=== PATIENT | male | born 1935 | race Caucasian/White ===

== ENCOUNTER 2018-03-12 18:14 | Inpatient (IN) ==
[2018-03-12] MEDS ORDERED: Diphtheria/Tetanus/Pertussis Vaccine Inj 0.5 ML Syringe IM ONE (18:21)
[2018-03-12] MEDS ORDERED: Propofol 1000 mg/100 ml Inj 1,000 MG/100 ML BOTTLE ONE (18:21)
--- NOTE | 2018-03-12 18:30 | XR ---
EXAM DATE: 03/12/2018 6:26 PM EDT AGE/SEX: 89 years / Male INDICATIONS: Trauma alert, fall from ladder. CLINICAL DATA: This is the patient's initial encounter. Patient reports that signs and symptoms have been present for 1 day and indicates a pain score of Nonresponsive. MEDICAL/SURGICAL HISTORY: Non-responsive. Non-responsive. COMPARISON: . FINDINGS: An endotracheal tube has its tip 4 cm above the yaritza. Median sternotomy wires are noted status post cardiac surgery. The heart is minimally prominent. The pulmonary vascular pattern is normal. The lindsay gs are clear. CONCLUSION: 1. No acute intrathoracic trauma. 2. Endotracheal tube in good position 4 cm above the yaritza. Electronically signed by: Bernabe Chan MD 03/12/2018 6:29 PM EDT
[2018-03-12] MEDS ORDERED: fentaNYL 10 mcg/mL Premix Drip 2,500 MCG/250 ML BAG IV.SIG PRN (18:31)
[2018-03-12] MEDS ORDERED: Naloxone Inj 0.4 MG/ML Vial IV.PUSH PRN (18:31)
[2018-03-12] MEDS ORDERED: Bisacodyl 10 MG Supp RECTAL PRN (18:31)
[2018-03-12 18:46] LABS: Baso % (Auto) 0.4 % (0.0-2.0); Hematocrit 45.7 % (39.0-51.0); Hemoglobin 15.7 gm/dL (13.0-17.0); Lymph # (Auto) 0.3 th/mm3 (1.0-4.8); Lymph % (Auto) 2.3 % (9.0-44.0); Mean Corpuscular HGB Conc 34.4 % (32.0-36.0); Mean Corpuscular Hemoglobin 31.5 pg (27.0-34.0); Mean Corpuscular Volume 91.4 fL (80.0-100.0); Mean Platelet Volume 9.3 fL (7.0-11.0); Mono # (Auto) 1.2 th/mm3 (0.0-0.9); Neut # (Auto) 11.8 th/mm3 (1.8-7.7); Neut % (Auto) 88.3 % (16.0-70.0); Platelet Count 146 th/mm3 (150-450); Red Cell Distribution Width 13.9 % (11.6-17.2); White Blood Count 13.4 th/mm3 (4.0-11.0)
--- NOTE | 2018-03-12 18:56 | CT ---
EXAM DATE: 03/12/2018 6:49 PM EDT AGE/SEX: 89 years / Male INDICATIONS: Trauma fell off ladder CLINICAL DATA: This is the patient's initial encounter. Patient reports that signs and symptoms have been present for 1 day and indicates a pain score of Nonresponsive. MEDICAL/SURGICAL HISTORY: Non-responsive. Non-responsive. RADIATION DOSE: 66.34 CTDI (mGy) COMPARISON: No prior exams available for comparison. TECHNIQUE: CT of the head without contrast. Using automated exposure control and adjustment of the mA and/or kV according to patient size, radiation dose was kept as low as reasonably achievable to ob tain optimal diagnostic quality images. DICOM format image data is available electronically for revi ew and comparison. FINDINGS: There is a small volume of blood in the posterior horns of the lateral ventricles. Minimal occasional subarachnoid blood present including in the posterior sylvian fissures bilaterally. A small hemorrha ge is present in the quadrigeminal plate region asymmetric to the right there is no evidence of drain able hemorrhagic collection. No evidence of significant brain shift. No evidence of brain mass and no thing to suggest acute infarction. There is layering fluid in the left maxillary sinus, in the nasopharynx and in posterior left-sided e thmoid air cells. No evidence of displaced skull fracture. 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 CONCLUSION: Areas of intracranial hemorrhage and parenchymal contusion as described above. No acute surgical find ings. . Electronically signed by: Antoni Blood MD 03/12/2018 6:55 PM EDT
[2018-03-12 19:00] LABS: Activated Partial Thrombo Time 23.9 sec (24.3-30.1); INR 1.1 Ratio; Prothrombin Time 10.9 sec (9.8-11.6)
[2018-03-12] MEDS ORDERED: Pantoprazole Inj 40 MG Vial IV.PUSH SCH (19:00)
[2018-03-12] MEDS ORDERED: Sod Chloride 0.9% Inj 1,000 ML IV.CONT SCH (19:00)
--- NOTE | 2018-03-12 19:01 | CT ---
EXAM DATE: 03/12/2018 6:54 PM EDT AGE/SEX: 89 years / Male INDICATIONS: Trauma fell off ladder CLINICAL DATA: This is the patient's initial encounter. Patient reports that signs and symptoms have been present for 1 day and indicates a pain score of Nonresponsive. MEDICAL/SURGICAL HISTORY: Non-responsive. Non-responsive. ORAL CONTRAST: No oral contrast ingested. RADIATION DOSE: 5.13 CTDI (mGy) ; Combined studies COMPARISON: No prior exams available for comparison. TECHNIQUE: Multiple contiguous axial images were obtained through the abdomen and pelvis following b olus infusion of 96 ml Omnipaque 350 (iohexol) nonionic water-soluble contrast as a cumulative dose for multiple exams. No oral contrast ingested. Using automated exposure control and adjustment of t he mA and/or kV according to patient size, radiation dose was kept as low as reasonably achievable to obtain optimal diagnostic quality images. DICOM format image data is available electronically for r eview and comparison. FINDINGS: Lower Lungs: The visualized lower lungs are clear. Liver: The liver has a homogeneous density without space-occupying lesion. There is no dilation of th e biliary tree. Spleen: Homogeneous density without enlargement. Pancreas: Unremarkable without mass or calcification. Kidneys: Mild bilateral hydronephrosis in addition to what appears to be parapelvic renal cysts. The urinary bladder is moderately dilated. No evidence of renal parenchymal contusion. Adrenal Glands: Unremarkable. Aorta: The aorta and proximal iliac vessels are grossly unremarkable without aneurysmal dilation. Bowel/Mesentery: Stool present throughout the colon. Moderate gaseous distention of small bowel loop s and of the stomach. No nasogastric tube noted. Abdominal Wall: Intact. Retroperitoneum: No evidence of adenopathy in the retrocrural, para-aortic, or deep pelvic regions. Bladder: Mildly dilated Reproductive Organs: No abnormal masses or calcifications seen. Inguinal: The inguinal region is unremarkable without evidence of adenopathy. Bony Structures: Unremarkable. CONCLUSION: 1. No acute injury in the abdomen or pelvis. 2. Mildly dilated urinary bladder with mild bilateral hydronephrosis and/or parapelvic renal cysts. This could be more definitively evaluated with delayed scanning following placement of a Junior cathet er 3. Moderate gaseous distention of the stomach and small bowel. Electronically signed by: Antoni Blood MD 03/12/2018 7:00 PM EDT
--- NOTE | 2018-03-12 19:02 | XR ---
EXAM DATE: 03/12/2018 6:28 PM EDT AGE/SEX: 89 years / Male INDICATIONS: Trauma alert, fall from ladder. CLINICAL DATA: This is the patient's initial encounter. Patient reports that signs and symptoms have been present for 1 day and indicates a pain score of Nonresponsive. MEDICAL/SURGICAL HISTORY: Non-responsive. Non-responsive. COMPARISON: No prior exams available for comparison. FINDINGS: Frontal pelvis is performed with patient on a backboard. The hips are grossly symmetric with moderate degenerative arthritic change. No definite fracture or dislocation. No displaced pelvic fractures ap preciated. CONCLUSION: Satisfactory trauma pelvis appearance Electronically signed by: Antoni Blood MD 03/12/2018 7:01 PM EDT
--- NOTE | 2018-03-12 19:02 | CT ---
EXAM DATE: 03/12/2018 6:57 PM EDT AGE/SEX: 89 years / Male INDICATIONS: Trauma fell off ladder CLINICAL DATA: This is the patient's initial encounter. Patient reports that signs and symptoms have been present for 1 day and indicates a pain score of Nonresponsive. MEDICAL/SURGICAL HISTORY: Non-responsive. Non-responsive. RADIATION DOSE: 5.13 CTDI (mGy) ; Combined studies COMPARISON: . TECHNIQUE: Multiple contiguous axial images were obtained through the chest during bolus infusion of 96 ml Omnipaque 350 (iohexol) nonionic water-soluble contrast as a cumulative dose for multiple exa ms. Images were obtained in suspended respiration using multiple row detector helical technique. U sing automated exposure control and adjustment of the mA and/or kV according to patient size, radiati on dose was kept as low as reasonably achievable to obtain optimal diagnostic quality images. DICOM format image data is available electronically for review and comparison. FINDINGS: Lungs: The lungs are symmetrically aerated. No infiltrates or nodular densities are seen. Posterior bibasilar atelectasis is noted. Mediastinum: There is good visualization of the great vessels of the middle mediastinum. No evidenc e of mediastinal or hilar adenopathy/mass. Coronary artery calcifications are noted. The tracheal tub e in good position well above the yaritza. Pleurae: No evidence of focal thickening or pleural effusion. Axillae: Unremarkable. Bony Structures: Unremarkable. Miscellaneous: The examination was extended to include the upper abdomen, and both adrenal glands ar e normal in size and configuration. CONCLUSION: 1. Posterior bibasilar atelectasis. 2. Coronary artery calcium patient. 3. No acute intrathoracic trauma. Electronically signed by: Bernabe Chan MD 03/12/2018 7:01 PM EDT
[2018-03-12] MEDS: Sod Chloride 0.9% Inj 1,000 ML IV.CONT SCH (19:04)
[2018-03-12 19:08] LABS: Anion Gap 12 meq/L (5-15); Blood Urea Nitrogen 26 mg/dL (7-18); Calcium 8.5 mg/dL (8.5-10.1); Carbon Dioxide 20.9 meq/L (21.0-32.0); Chloride 108 meq/L (98-107); Glomerular Filtration Rate 59 mL/min (>89); Glucose,Random 132 mg/dL (74-106); Potassium 5.7 meq/L (3.5-5.1); Sodium 141 meq/L (136-145)
--- NOTE | 2018-03-12 19:10 | CT ---
EXAM DATE: 03/12/2018 7:02 PM EDT AGE/SEX: 89 years / Male INDICATIONS: Trauma fell off ladder CLINICAL DATA: This is the patient's initial encounter. Patient reports that signs and symptoms have been present for 1 day and indicates a pain score of Nonresponsive. MEDICAL/SURGICAL HISTORY: Non-responsive. Non-responsive. RADIATION DOSE: 20.44 CTDI (mGy) COMPARISON: No prior exams available for comparison. TECHNIQUE: Contiguous axial images were obtained using helical multirow detector technique. The vol umetric data was post-processed with multiplanar reconstruction in oblique axial, sagittal, and coron al planes. Using automated exposure control and adjustment of the mA and/or kV according to patient s ize, radiation dose was kept as low as reasonably achievable to obtain optimal diagnostic quality magnus ges. DICOM format image data is available electronically for review and comparison. FINDINGS: Cervical spine alignment is satisfactory. There is no evidence of cervical spine fracture. There is m oderate degenerative change present throughout with disc space narrowing and endplate osteophyte form ation most conspicuously at C5-6 and C6-7. There appears to be moderate canal stenosis, more severe a t C6-7 than at C5-6 and bilateral foraminal stenosis at these levels, most significantly at the left C VII nerve root level. Less severe anatomic compromise is present at other levels. There is no evide nce of paraspinal hematoma CONCLUSION: 1. No acute bony injury in the cervical spine. 2. Significant disc disease and degenerative spondylosis with fairly significant suspected canal melanie nosis in the lower cervical spine as described. Electronically signed by: Antoni Blood MD 03/12/2018 7:08 PM EDT
--- NOTE | 2018-03-12 19:11 | ED ---
HPI General Chief Complaint: Trauma Alert Stated Complaint: Trauma Alert Time Seen by Provider: 03/12/18 18:43 Source: patient Mode of arrival: ambulatory Limitations: no limitations History of Present Illness HPI narrative: This is an older adult male, found at the bottom of the ladder, presumed to have fallen sometime in the last 24 hours, brought in as a trauma alert. Unknown medical history. GCS 6 or so on scene. Intubated on scene by EMS. Related Data Allergies Allergy/AdvReac Type Severity Reaction Status Date / Time No Allergy Information Allergy Unverified 03/12/18 18:17 Available Review of Systems ROS Unobtainable ROS Unobtainable: unobtainable due to endotracheal tube PMFSH Medical History Medical History Medical history unknown (Acute) Surgical history unknown (Acute) Social History Social History Recent Travel in [facility] within the Last 8 Weeks: No Recent Out of Country Travel within the Last 8 Weeks: No Exam Narrative Exam Narrative: GENERAL: Adult male, full spinal mobilization, obtunded. Some purposeful movement to the tube, but minimal. Blinking. SKIN: Focused skin assessment warm/dry. HEAD: Normocephalic, post contusion to the soft tissues of the posterior occiput. EYES: Pupils equal and round. No scleral icterus. No injection or drainage. ENT: No nasal bleeding or discharge. Mucous membranes pink and moist. NECK: Trachea midline. No JVD. CARDIOVASCULAR: Regular rate and rhythm. No murmur appreciated. RESPIRATORY: No accessory muscle use. Clear to auscultation. Breath sounds equal bilaterally. GASTROINTESTINAL: Abdomen soft, non-tender, nondistended. Hepatic and splenic margins not palpable. MUSCULOSKELETAL: No obvious deformities. No clubbing. No cyanosis. No edema. NEUROLOGICAL: Obtunded. A little bit of occasional purposeful movement the hands although it is difficult to elicit any movement with noxious stimulus. I do not really see him move his feet at all. Pupils are about 1-2 mm. Some spontaneous blinking. Course Initial Documented Vital Signs Pulse Oximetry 97 03/12/18 18:14 Last Documented Vital Signs Pulse Oximetry 97 03/12/18 18:14 Medical Decision Making MDM Narrative Medical decision making narrative: Adult male, presumed trauma fall from ladder , unknown timeframe, obtunded, intubated on scene. Contusion posterior aspect. A little bit of skin breakdown on the back. No other definite injuries. Admitted to trauma ICU Medical Screen Exam Complete: Yes Emergency Medical Condition: Yes Lab Data Lab results reviewed: Yes I reviewed the patient's lab results. Result diagrams: 03/12/18 18:16 03/12/18 18:16 Lab Results 03/12/18 03/12/18 03/12/18 Range/Units 18:16 18:16 18:16 WBC 13.4 H (4.0-11.0) th/mm3 RBC 5.00 (4.50-5.90) mil/mm3 Hgb 15.7 (13.0-17.0) gm/dL POC Hgb (Calc) 15.3 (13.0-17.0) g/dL Hct 45.7 (39.0-51.0) % POC Hct 45.0 (39-51.0) % MCV 91.4 (80.0-100.0) fL MCH 31.5 (27.0-34.0) pg MCHC 34.4 (32.0-36.0) % RDW 13.9 (11.6-17.2) % Plt Count 146 L (150-450) th/mm3 MPV 9.3 (7.0-11.0) fL Neut % (Auto) 88.3 H (16.0-70.0) % Lymph % (Auto) 2.3 L (9.0-44.0) % [place] % (Auto) 9.0 H (0.0-8.0) % Eos % (Auto) 0.0 (0.0-4.0) % Baso % (Auto) 0.4 (0.0-2.0) % Neut # (Auto) 11.8 H (1.8-7.7) th/mm3 Lymph # (Auto) 0.3 L (1.0-4.8) th/mm3 [place] # (Auto) 1.2 H (0.0-0.9) th/mm3 Eos # (Auto) 0.0 (0.0-0.4) th/mm3 Baso # (Auto) 0.0 (0.0-0.2) th/mm3 WBC Differential . Differential Comment Auto diff final PT 10.9 (9.8-11.6) sec INR 1.1 Ratio APTT 23.9 L (24.3-30.1) sec POC Sodium 141 (137-144) mmol/L Sodium (136-145) meq/L POC Potassium 5.9 H (3.6-5.0) mmol/L Potassium (3.5-5.1) meq/L POC Chloride 109 (102-111) mmol/L Chloride (98-107) meq/L Carbon Dioxide (21.0-32.0) meq/L Anion Gap (5-15) meq/L POC BUN 41 H (5-21) mg/dL BUN (7-18) mg/dL Creatinine (0.60-1.30) mg/dL POC Creatinine 0.9 (0.6-1.3) mg/dL Estimated GFR (>89) mL/min POC Glucose 151 H (68-110) mg/dL Random Glucose (74-106) mg/dL Calcium (8.5-10.1) mg/dL Serum Alcohol (0-5) mg/dL 03/12/18 Range/Units 18:16 WBC (4.0-11.0) th/mm3 RBC (4.50-5.90) mil/mm3 Hgb (13.0-17.0) gm/dL POC Hgb (Calc) (13.0-17.0) g/dL Hct (39.0-51.0) % POC Hct (39-51.0) % MCV (80.0-100.0) fL MCH (27.0-34.0) pg MCHC (32.0-36.0) % RDW (11.6-17.2) % Plt Count (150-450) th/mm3 MPV (7.0-11.0) fL Neut % (Auto) (16.0-70.0) % Lymph % (Auto) (9.0-44.0) % [place] % (Auto) (0.0-8.0) % Eos % (Auto) (0.0-4.0) % Baso % (Auto) (0.0-2.0) % Neut # (Auto) (1.8-7.7) th/mm3 Lymph # (Auto) (1.0-4.8) th/mm3 [place] # (Auto) (0.0-0.9) th/mm3 Eos # (Auto) (0.0-0.4) th/mm3 Baso # (Auto) (0.0-0.2) th/mm3 WBC Differential Differential Comment PT (9.8-11.6) sec INR Ratio APTT (24.3-30.1) sec POC Sodium (137-144) mmol/L Sodium 141 (136-145) meq/L POC Potassium (3.6-5.0) mmol/L Potassium 5.7 H (3.5-5.1) meq/L POC Chloride (102-111) mmol/L Chloride 108 H (98-107) meq/L Carbon Dioxide 20.9 L (21.0-32.0) meq/L Anion Gap 12 (5-15) meq/L POC BUN (5-21) mg/dL BUN 26 H (7-18) mg/dL Creatinine 1.08 (0.60-1.30) mg/dL POC Creatinine (0.6-1.3) mg/dL Estimated GFR 59 L (>89) mL/min POC Glucose (68-110) mg/dL Random Glucose 132 H (74-106) mg/dL Calcium 8.5 (8.5-10.1) mg/dL Serum Alcohol Less than 3 (0-5) mg/dL Imaging Data Radiologist's impression: Chest X-Ray 03/12/18 18:18 CONCLUSION: 1. No acute intrathoracic trauma. 2. Endotracheal tube in good position 4 cm above the yaritza. Pelvis X-Ray 03/12/18 18:18 CONCLUSION: Satisfactory trauma pelvis appearance Abdomen/Pelvis CT 03/12/18 18:23 CONCLUSION: 1. No acute injury in the abdomen or pelvis. 2. Mildly dilated urinary bladder with mild bilateral hydronephrosis and/or parapelvic renal cysts. This could be more definitively evaluated with delayed scanning following placement of a Junior catheter 3. Moderate gaseous distention of the stomach and small bowel. Chest CT 03/12/18 18:23 CONCLUSION: 1. Posterior bibasilar atelectasis. 2. Coronary artery calcium patient. 3. No acute intrathoracic trauma. Cervical Spine CT 03/12/18 18:24 CONCLUSION: 1. No acute bony injury in the cervical spine. 2. Significant disc disease and degenerative spondylosis with fairly significant suspected canal stenosis in the lower cervical spine as described. Head CT 03/12/18 18:24 CONCLUSION: Areas of intracranial hemorrhage and parenchymal contusion as described above. No acute surgical findings. . Discharge Plan Discharge Disposition Patient Disposition: 30 Still Patient Physicians Team ED Provider: Shree Ross Primary Care Provider: UNKNOWN, Attending Provider: Vaibhav Tenorio Other Providers: Ry Marrero ED Status: Admitted Patient
[2018-03-12 19:32] LABS: Bilirubin,Urine Negative (Negative); Clarity,Urine Clear (Clear); Color,Urine Yellow (Yellw/Straw); Glucose,Urine (UA) Negative (Negative); Leukocyte Esterase,Urine Negative (Negative); Mucus,Urine Few /lpf (Occasional); Nitrite,Urine Negative (Negative); Specific Gravity,Urine 1.026 (1.002-1.035)
[2018-03-12 19:40] LABS: ABG Base Excess -1.4 mmol/L (-2-2); ABG PCO2 38 mmHg (38-42); ABG PO2 566 mmHg (61-120)
--- NOTE | 2018-03-12 19:50 | P.CONNS ---
History of Present Illness Service: NEUROSURGERY Consult date: 03/12/18 Requesting Physician: Jose Lopez Reason for Consult: Trauma alert Primary Care Provider: UNKNOWN Chief Complaint: Severe trauma History of Present Illness: This is an elderly man who was found under a ladder, and presumably fell off the ladder. Positive loss oc counsiousness. Mp seizure activity reported. No tongue bitting. no incontinence of stool or urine. He was transferred to our institution as priority 1 trauma alert and on arrival patient is Hugo coma scale of about 5 Upon arrival to the trauma bay he was was intubated and ventilated Trauma workup revealed multiple injuries, including intracranial hemorrhage with small area of contusion on the right side, and bleeding in the quadrigeminal plate. No other injuries are noted. The patient has bilateral severe hydronephrosis and parapelvic renal cysts that can be evaluated at a different time. Mininmal reaction to pain. Neurosurgical consultation was requested Review of Systems unobtainable due to endotracheal tube, unobtainable due to mental condition PMFSH - History History Provided By: Health Screener / EMT - Medical History Medical History: Medical History (Last Reviewed 03/13/18 @ 17:01 by Ry Marrero MD) Medical history unknown Surgical history unknown - Tobacco History Smoking Status: Unknown if ever smoked - Alcohol History How Often Do You Have a Drink Containing Alcohol: Unable to Obtain - Substance Use History Substance History: Unable to Obtain - Travel History Recent Travel in the USA Within the Last 8 Weeks: No Recent Travel Out of the Country Within the Last 8 Weeks: No - Immunization History Tetanus Immunization: Unable to Assess Hx Influenza Vaccine This Season: Unable to Assess Medications and Allergies Active Medications: Active Medications Al Hydroxide/Mg Hydroxide (Milk Of Leland Liq) 30 ml PO Q12H PRN PRN Reason: Mild Constipation Bisacodyl (Dulcolax Supp) 10 mg RECTAL DAILY PRN PRN Reason: SEVERE CONSITIPATION Chlorhexidine Gluconate (Chlorhexidine 2% Cloth) 3 pack TOPICAL DAILY@0400 [facility] Stop: 03/18/18 03:59 Chlorhexidine Gluconate (Chlorhexidine 2% Cloth) 3 pack TOPICAL DAILY@0400 PRN PRN Reason: Extra cloth needed Stop: 03/18/18 03:59 Famotidine (Pepcid) 20 mg PO BID [facility] Famotidine (Pepcid Pf Inj) 20 mg IV.PUSH Q12HR [facility] Fentanyl (Fentanyl 10 Mcg/Ml Premix Drip) 2,500 mcg in 250 mls @ 5 mls/hr IV.SIG TITRATE PRN; Protocol PRN Reason: Per Protocol Sodium Chloride (Ns Inj) 1,000 mls @ 150 mls/hr IV.CONT .Q6H40M [facility] Last Admin: 03/12/18 19:04 Dose: Not Given Propofol (Diprivan 1000 Mg/100 Ml Inj) 1,000 mg in 100 mls @ 2.25 mls/hr IV.CONT TITRATE PRN; Protocol PRN Reason: Per Protocol Sodium Chloride (Ns Inj) 1,000 mls @ 1,000 mls/hr IV.CONT .Q1H [facility] Stop: 03/12/18 19:59 Last Admin: 03/12/18 19:38 Dose: 1,000 mls/hr Levetiracetam 500 mg/ Sodium (Chloride) 105 mls @ 400 mls/hr IV.SIG Q12H [facility] Last Admin: 03/12/18 19:46 Dose: 400 mls/hr Lactulose (Lactulose Liq) 30 ml PO DAILY PRN PRN Reason: SEVERE CONSITIPATION Naloxone HCl (Narcan Inj) 0.4 mg IV.PUSH Q3M PRN PRN Reason: RESPIRATORY RATE LESS THAN 10 Ondansetron HCl (Zofran Inj) 4 mg IV.PUSH Q6H PRN PRN Reason: NAUSEA OR VOMITING Pantoprazole Sodium (Protonix Inj) 40 mg IV.PUSH DAILY [facility] Last Admin: 03/12/18 19:39 Dose: 40 mg Sennosides (Senokot) 17.2 mg PO Q12H PRN PRN Reason: Moderate Constipation Sodium Chloride (Ns Flush) 2 ml IV.FLUSH BID [facility] Sodium Chloride (Ns Flush) 2 ml IV.FLUSH PRN PRN PRN Reason: FLUSH AFTER USING IV ACCESS Allergies Allergy/AdvReac Type Severity Reaction Status Date / Time No Allergy Information Allergy Unverified 03/12/18 18:17 Available Home Medications Medication Instructions Recorded Confirmed Type Unable to Obtain Home Meds 03/12/18 03/12/18 History Exam Vital signs: Vital Signs 03/12/18 18:14 03/12/18 19:07 03/12/18 19:13 Pulse Rate Respiratory Rate 16 Blood Pressure Pulse Oximetry 97 100 100 03/12/18 19:15 03/12/18 19:20 03/12/18 19:27 Pulse Rate 65 Respiratory Rate 16 Blood Pressure 155/78 H Pulse Oximetry 100 100 100 Intake & Output 03/12/18 03/12/18 03/13/18 06:59 18:59 06:59 Weight 75 kg Narrative: The patient is intubated and sedated. Minimal response to painful stimuli with all 4 extremities. Cranial Nerves: Pupils equal, 3 mm round, reactive to light. Eyes appear conjugated. There was no nystagmus, no papilledema. Face musculature appeared symmetrical at rest. Face sensation, olfaction, and hearing cannot be adequately assessed due to the patient's neurological condition. The patient has a corneal reflex. The patient has a gag reflex. The sternocleidomastoid and trapezius were symmetrical. Cervical Spine: The patient's neck is soft, supple, without nuchal rigidity. Motor: His muscle tone and bulk are normal. He moves minimally all 4 extremities symmetrically. Reflexes: Deep tendon reflexes are 2+ and symmetrical in the biceps, triceps, and brachioradialis, bilaterally, in the upper extremities. In the lower extremities, the patellar and ankles are 2+, bilaterally. There is a bilateral plantar flexion response. There is no clonus or other abnormal reflexes noted. Sensory: On examination there there is response to painful stimuli, withdrawing with both upper and lower extremities. Cerebellar: Examination cannot be adequately assessed due to the patient's neurological condition. Lungs: clear Heart: Regular rhythm and rate Skin: warm and dry Results - Laboratory Findings CBC and BMP: 03/13/18 03:17 03/13/18 03:17 Abnormal lab findings: Abnormal Labs 03/12/18 03/12/18 03/12/18 18:16 18:16 18:16 WBC 13.4 H Plt Count 146 L Neut % (Auto) 88.3 H Lymph % (Auto) 2.3 L Coffey % (Auto) 9.0 H Neut # (Auto) 11.8 H Lymph # (Auto) 0.3 L Coffey # (Auto) 1.2 H APTT 23.9 L ABG pO2 ABG O2 Content POC Potassium 5.9 H Potassium Chloride Carbon Dioxide POC BUN 41 H BUN Estimated GFR POC Glucose 151 H Random Glucose Urine Protein Urine Ketones Urine Occult Blood Urine Urobilinogen Urine RBC Urine Mucus 03/12/18 03/12/18 03/12/18 18:16 19:20 19:20 WBC Plt Count Neut % (Auto) Lymph % (Auto) Coffey % (Auto) Neut # (Auto) Lymph # (Auto) Coffey # (Auto) APTT ABG pO2 566 H ABG O2 Content 20.6 H POC Potassium Potassium 5.7 H Chloride 108 H Carbon Dioxide 20.9 L POC BUN BUN 26 H Estimated GFR 59 L POC Glucose Random Glucose 132 H Urine Protein 30 H Urine Ketones Trace H Urine Occult Blood Moderate H Urine Urobilinogen 2.0 H Urine RBC 5 H Urine Mucus Few H Assessment and Plan - Plan I reviewed his radiological studies Chest X-Ray 03/12/18 18:18 CONCLUSION: 1. No acute intrathoracic trauma. 2. Endotracheal tube in good position 4 cm above the yaritza. Pelvis X-Ray 03/12/18 18:18 CONCLUSION: Satisfactory trauma pelvis appearance Abdomen/Pelvis CT 03/12/18 18:23 CONCLUSION: 1. No acute injury in the abdomen or pelvis. 2. Mildly dilated urinary bladder with mild bilateral hydronephrosis and/or parapelvic renal cysts. This could be more definitively evaluated with delayed scanning following placement of a Junior catheter 3. Moderate gaseous distention of the stomach and small bowel. Chest CT 03/12/18 18:23 CONCLUSION: 1. Posterior bibasilar atelectasis. 2. Coronary artery calcium patient. 3. No acute intrathoracic trauma. Cervical Spine CT 03/12/18 18:24 CONCLUSION: 1. No acute bony injury in the cervical spine. 2. Significant disc disease and degenerative spondylosis with fairly significant suspected canal stenosis in the lower cervical spine as described. Head CT 03/12/18 18:24 CONCLUSION: Areas of intracranial hemorrhage and parenchymal contusion as described above. No acute surgical findings. . Neuro: neuro checks in a serial fashion. Follow CT in AM he seems to be moving. If he does not wake up will place ICP monitor Pulmonary: Respiratory failure. On full mechanical ventilation. aggressive pulmonary toilette, nasotracheal suction, and breathing treatments with nebulizers. Eval by PT and OT Renal: monitor closely urine output, BUN and creatinine Endocrine: Monitor serial Acu checks and SSI as needed in detail monitor for signs of infection Protonix for stress ulcer prophylaxis Abhijeet hose and SCD's for DVT prophylaxis Caprini VTE Risk Assessment Caprini Risk Assessment Model: Point Value = 1 Point Value = 2 Point Value = 3 Point Value = 5 Age 41-60 Minor surgery BMI > 25 kg/m2 Swollen legs Varicose veins or History of unexplained or recurrent spontaneous Oral contraceptives or hormone replacement Sepsis (< 1 month) Serious lung disease, including pneumonia (< 1 month) Abnormal pulmonary function Acute myocardial infarction Congestive heart failure (< 1 month) History of inflammatory bowel disease Medical patient at bed rest Age 61-74 Arthroscopic surgery Major open surgery (> 45 min) Laparoscopic surgery (> 45 min) Malignancy Confined to bed (> 72 hours) Immobilizing plaster cast Central venous access Age >= 75 History of VTE Family history of VTE Factor V Leiden Prothrombin [id number] Lupus anticoagulant Anticardiolipin antibodies Elevated serum homocysteine Heparin-induced thrombocytopenia Other congenital or acquired thrombophilia Stroke (< 1 month) Elective arthroplasty Hip, pelvis, or leg fracture Acute spinal cord injury (< 1 month) Prophylaxis Regimen: Total Risk Factor Score Risk Level Prophylaxis Regimen 0-1 Low Early ambulation 2 Moderate Order ONE of the following: *Sequential Compression Device (SCD) *Heparin 5000 units SQ BID 3-4 Higher Order ONE of the following medications: *Heparin 5000 units SQ TID *Enoxaparin/Lovenox 40 mg SQ daily (WT < 150 kg, CrCl > 30 mL/min) *Enoxaparin/Lovenox 30 mg SQ daily (WT < 150 kg, CrCl > 10-29 mL/min) *Enoxaparin/Lovenox 30 mg SQ BID (WT < 150 kg, CrCl > 30 mL/min) AND/OR *Sequential Compression Device (SCD) 5 or more Highest Order ONE of the following medications: *Heparin 5000 units SQ TID (Preferred with Epidurals) *Enoxaparin/Lovenox 40 mg SQ daily (WT < 150 kg, CrCl > 30 mL/min) *Enoxaparin/Lovenox 30 mg SQ daily (WT < 150 kg, CrCl > 10-29 mL/min) *Enoxaparin/Lovenox 30 mg SQ BID (WT < 150 kg, CrCl > 30 mL/min) AND *Sequential Compression Device (SCD) Further recommendations will be provided depending on the patient's clinical evaluation and follow up studies.
--- NOTE | 2018-03-12 20:02 | MH ---
cc: Vaibhav Tenorio MD DATE OF ADMISSION: 03/12/2018 HISTORY OF PRESENT ILLNESS: This is a [id number] male who was found at the bottom of the ladder. Presumably, he fell in the last 24 hours. Is a trauma alert. On arrival, the patient's Hugo coma scale was 6 and he was intubated by EMS and sedated. PAST MEDICAL AND SURGICAL HISTORY: Not obtainable. MEDICATIONS: Unobtainable. ALLERGIES: Unobtainable PHYSICAL EXAMINATION: GENERAL: Reveals [id number] male. HEENT: Normocephalic trauma to the head consisting of a posterior left contusion. Pupils equal, poorly reactive, about 3 mm. Extraocular muscles cannot be tested. No hemotympanum. No hawkins sign, no raccoon eyes. NECK: No signs of trauma to the neck. C-collar is repositioned. HEART: Regular rhythm. The patient is hemodynamically stable. Actual blood pressure is about 180. RESPIRATORY: Bilateral breath sounds, decreased lungs sullivan consistent probably with some degree of COPD. ABDOMEN: Soft. No rebound, no guarding, no masses. EXTREMITIES: The patient has palpable femoral, popliteal pulses dopplerable, dorsalis pedis and posterior tibial pulses. No signs of vascular deficit. NEUROLOGIC: Protivin coma scale on the scene was about 6. On arrival, the patient is intubated, ventilated. It is about 3 and then improved to about 8 or 9. The patient is fluttering slightly his eyes and moving his extremities and intermittently follows commands. The patient is not now intubated and until further notice will remain so. IMPRESSION: The patient underwent laboratory and diagnostic workup. After resuscitation, was found to have intracranial hemorrhage with small area of contusion on the right and then a small area of concentrated bleeding in the quadrigeminal plate. No other injuries are noted. The patient has bilateral severe hydronephrosis and parapelvic renal cysts that can be evaluated at a different time. At this point, I am not sure if the patient fell off the ladder and sustained injuries or perhaps he had a stroke in the quadrigeminal area, which is hemorrhagic and then fell off the ladder. Either way, patient is taken care of in the ICU. Appropriate services are consulted. The patient has significant degree of atrophy, will not need intracranial pressure monitor. Neurosurgeon has been spoken to by me and Dr. Marrero. MD CARLEE Martin/zay , 07:31 PM , 07:38 PM GERALDINE
[2018-03-12] MEDS ORDERED: Morphine Sulfate Inj 2 MG/ML Vial ONE (20:26)
[2018-03-12] MEDS: Famotidine PF Inj 20 MG/2 ML Vial IV.PUSH SCH (20:54)
[2018-03-12 20:56] LABS: ABG Base Excess -1.6 mmol/L (-2-2); ABG PCO2 38 mmHg (38-42); ABG PO2 188 mmHg (61-120)
[2018-03-12] MEDS ORDERED: Famotidine 20 MG Tablet PO SCH (21:00)
[2018-03-12] MEDS: Propofol 1000 mg/100 ml Inj 1,000 MG/100 ML BOTTLE IV.CONT PRN (21:07)
[2018-03-12 21:56] LABS: Hematocrit 41.1 % (39.0-51.0); Hemoglobin 13.9 gm/dL (13.0-17.0)
[2018-03-13 01:42] LABS: Troponin I 0.05 ng/mL (0.02-0.05)
[2018-03-13] MEDS: Sod Chloride 0.9% Inj 1,000 ML IV.CONT SCH ×3 (03:00→16:17)
[2018-03-13] MEDS: Chlorhexidine Gluconate 2% 1 Pack (2 Cloths) TOPICAL SCH (03:00)
[2018-03-13 03:38] LABS: Baso % (Auto) 0.3 % (0.0-2.0); Eos % (Auto) 0.2 % (0.0-4.0); Hematocrit 41.7 % (39.0-51.0); Hemoglobin 13.9 gm/dL (13.0-17.0); Lymph # (Auto) 0.9 th/mm3 (1.0-4.8); Lymph % (Auto) 10.5 % (9.0-44.0); Mean Corpuscular HGB Conc 33.2 % (32.0-36.0); Mean Corpuscular Hemoglobin 31.3 pg (27.0-34.0); Mean Corpuscular Volume 94.2 fL (80.0-100.0); Mean Platelet Volume 8.5 fL (7.0-11.0); Mono # (Auto) 1.2 th/mm3 (0.0-0.9); Mono % (Auto) 13.3 % (0.0-8.0); Neut # (Auto) 6.7 th/mm3 (1.8-7.7); Neut % (Auto) 75.7 % (16.0-70.0); Platelet Count 118 th/mm3 (150-450); Red Blood Count 4.43 mil/mm3 (4.50-5.90); Red Cell Distribution Width 13.6 % (11.6-17.2); White Blood Count 8.9 th/mm3 (4.0-11.0)
[2018-03-13] MEDS ORDERED: Chlorhexidine Gluconate 2% 1 Pack (2 Cloths) TOPICAL PRN (04:00)
[2018-03-13 04:15] LABS: Anion Gap 8 meq/L (5-15); Aspartate Aminotransferase 31 U/L (15-37); Blood Urea Nitrogen 26 mg/dL (7-18); Calcium 7.7 mg/dL (8.5-10.1); Carbon Dioxide 25.9 meq/L (21.0-32.0); Chloride 113 meq/L (98-107); Glucose,Random 111 mg/dL (74-106); Potassium 4.1 meq/L (3.5-5.1); Sodium 147 meq/L (136-145)
[2018-03-13] MEDS: Propofol 1000 mg/100 ml Inj 1,000 MG/100 ML BOTTLE IV.CONT PRN (04:32)
[2018-03-13 05:33] LABS: ABG Base Excess -0.6 mmol/L (-2-2); ABG PCO2 36 mmHg (38-42); ABG PO2 198 mmHg (61-120)
[2018-03-13 05:47] LABS: Alanine Aminotransferase 18 U/L (12-78); Alkaline Phosphatase 49 U/L (45-117); Glomerular Filtration Rate 70 mL/min (>89); Total Protein 5.9 g/dL (6.4-8.2)
[2018-03-13 06:15] LABS: CKMB Percent 0.5 % (0.0-4.0); Creatine Kinase MB 2.3 ng/mL (0.5-3.6)
--- NOTE | 2018-03-13 08:04 | P.NPEVAL ---
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 GCS was [address] Head CT showed areas of intracranial hemorrhage and parenchymal contusion. He is referred for baseline neurobehavioral status examination per trauma protocol to assess cognitive, behavioral and emotional aspects of the injury and to provide treatment recommendations. [facility] - History History Provided By: Doctor Assistant / EMT - Medical History Medical History: Medical History (Last Reviewed 03/12/18 @ 19:07 by Shree Ross MD) Medical history unknown Surgical history unknown - Tobacco History Smoking Status: Unknown if ever smoked - Alcohol History How Often Do You Have a Drink Containing Alcohol: Unable to Obtain - Substance Use History Substance History: Unable to Obtain - Travel History Recent Travel in the [place] Within the Last 8 Weeks: No Recent Travel Out of the Country Within the Last 8 Weeks: No - Immunization History Tetanus Immunization: Unable to Assess Hx Influenza Vaccine This Season: Unable to Assess Medications Active Medications Al Hydroxide/Mg Hydroxide (Milk Of Leland Simons) 30 ml PO Q12H PRN PRN Reason: Mild Constipation Albuterol (Duoneb Neb (Prn)) 1 ampul NEB Q2HR NEB PRN PRN Reason: SHORTNESS OF BREATH Albuterol (Duoneb Neb (Noelle)) 1 ampul NEB Q6HR NEB [facility]EL[facility] Bacitracin (Baciguent Oint) 1 applicatio TOPICAL BID [facility] Bisacodyl (Dulcolax Supp) 10 mg RECTAL DAILY PRN PRN Reason: SEVERE CONSITIPATION Chlorhexidine Gluconate (Chlorhexidine 2% Cloth) 3 pack TOPICAL DAILY@0400 [facility] Stop: 03/18/18 03:59 Last Admin: 03/13/18 03:00 Dose: 3 pack Chlorhexidine Gluconate (Chlorhexidine 2% Cloth) 3 pack TOPICAL DAILY@0400 PRN PRN Reason: Extra cloth needed Stop: 03/18/18 03:59 Chlorhexidine Gluconate (Peridex 0.12% Oral Kit) 15 ml OROPHARYNG BID@0800, 1999 [facility] Famotidine (Pepcid Pf Inj) 20 mg IV.PUSH Q12HR [facility] Last Admin: 03/12/18 20:54 Dose: 20 mg Fentanyl (Fentanyl 10 Mcg/Ml Premix Drip) 2,500 mcg in 250 mls @ 5 mls/hr IV.SIG TITRATE PRN; Protocol PRN Reason: Per Protocol Last Admin: 03/12/18 21:08 Dose: 50 mcg/hr, 5 mls/hr Sodium Chloride (Ns Inj) 1,000 mls @ 150 mls/hr IV.CONT .Q6H40M [facility] Last Admin: 03/13/18 03:00 Dose: 150 mls/hr Propofol (Diprivan 1000 Mg/100 Ml Inj) 1,000 mg in 100 mls @ 2.25 mls/hr IV.CONT TITRATE PRN; Protocol PRN Reason: Per Protocol Last Titration: 03/13/18 05:22 Dose: 15 mcg/kg/min, 6.75 mls/hr Levetiracetam 500 mg/ Sodium (Chloride) 105 mls @ 400 mls/hr IV.SIG Q12H [facility] Last Infusion: 03/12/18 20:33 Dose: Infused Acetaminophen (Ofirmev Inj) 1,000 mg in 100 mls @ 400 mls/hr IV.SIG Q6H PRN PRN Reason: FEVER > 101 F Lactulose (Lactulose Liq) 30 ml PO DAILY PRN PRN Reason: SEVERE CONSITIPATION Naloxone HCl (Narcan Inj) 0.4 mg IV.PUSH Q3M PRN PRN Reason: RESPIRATORY RATE LESS THAN 10 Ondansetron HCl (Zofran Inj) 4 mg IV.PUSH Q6H PRN PRN Reason: NAUSEA OR VOMITING Senna/Docusate Sodium (Aparna-Colace) 1 tab PO BID [facility] Sennosides (Senokot) 17.2 mg PO Q12H PRN PRN Reason: Moderate Constipation Sodium Chloride (Ns Flush) 2 ml IV.FLUSH BID [facility] Last Admin: 03/12/18 20:54 Dose: 2 ml Sodium Chloride (Ns Flush) 2 ml IV.FLUSH PRN PRN PRN Reason: FLUSH AFTER USING IV ACCESS Mental Status Assessment - Mental Status Orientation: unable to assess: Self, Place, Time, Situation Adjustment/Coping Assessment - Adjustment/Coping Adjustment/Coping: Not Assessed: Depression, Anxiety, Pain, Apathy, Awareness, Insight - Observation The patient is presently intubated and sedated. - Goals/Team Members LTG Status: Deferred STG Status: Deferred Team Members: Neuropsychologist Behavior - Behavior Treatment Engagement: No effort - Observation Behaviorally, the patient demonstrated no signs of agitation, impulsivity or disinhibition. There was no remarkable evidence of a formal thought disorder or psychosis. - Goals LTG Status: Deferred STG Status: Deferred - Team Members Team Members: Neuropsychologist Diagnosis/Discharge Plan - Diagnosis (1) Major neurocognitive disorder as late effect of traumatic brain injury without behavioral disturbance Status: Acute Impression: Older gentleman who is s/p TBI 2T fall from ladder on 03/12/2018. Maximizing Acute Care Outcome: It is recommended that the patient be monitored for emergent behavioral impulsivity as the medical condition evolves. This patients neuropathological challenges may limit rehabilitation potential going forward, and these challenges will require specialized therapeutic skills to maximize outcome. Additionally, the patients family is experiencing ongoing issues of adjustment given the traumatic nature of the injury, and they may benefit from ongoing psychological assistance. At this point in the recovery process, the patient does not have cognitive capacity as the patient is unable to understand a situation and its likely consequences, nor is the patient able to manipulate information rationally. Cognitive capacity will be assessed throughout the recovery process. - Discharge Planning Anticipated Problems: Ongoing areas of concern will include behavioral impulsivity, lack of insight and judgment, which is expected to improve with time and treatment. Given the severity of the patient's injuries it is my clinical opinion that this patient will be unable to return to any type of productive employment for at least one year, perhaps longer and likely never. This patient is not considered safe to discharge home without supervision. Treatment Plan: This clinician will continue to follow with you throughout the course of this patients rehabilitation treatment, and I will be available to meet with the patients family/support system to facilitate their understanding and the ongoing care of their family member. The goals of neuropsychological intervention shall be both educational and supportive to the family/support system as is deemed clinically appropriate. Thank you for the opportunity to assist in this patients care. Kennedy Cotto, Ph.D., ABPP Board Certified in Clinical Neuropsychology [place] [employer] [place] Licensed Psychologist #[id number]
[2018-03-13] MEDS: Chlorhexidine 0.12% Oral Kit 15 ML UDC OROPHARYNG SCH ×2 (08:20→20:53)
[2018-03-13] MEDS: Senna/Docusate Sodium 8.6/50 MG Tablet PO SCH ×2 (08:21→20:53)
[2018-03-13] MEDS: Famotidine PF Inj 20 MG/2 ML Vial IV.PUSH SCH ×2 (08:21→20:52)
[2018-03-13] MEDS: Oral Hygiene Kit OROPHARYNG SCH ×2 (12:11→16:18)
--- NOTE | 2018-03-13 13:44 | P.PNCC ---
Subjective Brief History: Elderly gentleman found under a ladder and presumably fell off the ladder sometimes with the last 24 hours. Patient was transferred to our institution as priority 1 trauma alert and on arrival patient is [place] coma scale of about 4-5 moving some. Patient was intubated ventilated The patient underwent laboratory and diagnostic workup. After resuscitation, was found to have intracranial hemorrhage with small area of contusion on the right and then a small area of concentrated bleeding in the quadrigeminal plate. No other injuries are noted. The patient has bilateral severe hydronephrosis and parapelvic renal cysts that can be evaluated at a different time. At this point, I am not sure if the patient fell off the ladder and sustained injuries or perhaps he had a stroke in the quadrigeminal area, which is hemorrhagic and then fell off the ladder. Either way, patient is taken care of in the ICU. Appropriate services are consulted. 24 Hour Review/Hospital Course: Sedated on small dose of Versed throughout the night which has been discontinued this morning At this point awaiting to see patients reaction to discontinuation of sedation however he is opening his eyes and fluttering eyelids but otherwise no responding to any verbal or tactile stimuli Withdraws to pain [place] Coma Scale about 5E Hemodynamically patient stable Bilateral good breath sounds good PO2 FiO2 gradient on 35% FiO2 assist control mode ventilation Renal function preserved Discuss further with Dr. Marrero and will go ahead with MRI of the brain and based on the findings decide which way to go Objective Vital Signs / I&O: Vital Signs 03/12/18 18:14 03/12/18 19:07 03/12/18 19:13 Temperature Pulse Rate Respiratory Rate 16 Blood Pressure Pulse Oximetry 97 100 100 03/12/18 19:15 03/12/18 19:20 03/12/18 19:25 Temperature Pulse Rate Respiratory Rate 18 Blood Pressure Pulse Oximetry 100 100 100 03/12/18 19:27 03/12/18 19:50 03/12/18 20:21 Temperature Pulse Rate 65 59 L Respiratory Rate 16 16 18 Blood Pressure 155/78 H 162/77 H Pulse Oximetry 100 100 100 03/12/18 20:30 03/12/18 22:10 03/13/18 00:00 Temperature 100.1 F H Pulse Rate 71 56 L Respiratory Rate 16 16 Blood Pressure 115/60 Pulse Oximetry 100 100 100 03/13/18 01:47 03/13/18 04:00 03/13/18 04:07 Temperature 99.2 F Pulse Rate 55 L Respiratory Rate 16 16 16 Blood Pressure 125/68 Pulse Oximetry 100 100 100 03/13/18 08:00 03/13/18 08:05 03/13/18 09:00 Temperature 99 F Pulse Rate 59 L 58 L 59 L Respiratory Rate 16 17 Blood Pressure 112/69 Pulse Oximetry 100 100 03/13/18 12:00 03/13/18 12:01 Temperature 98.7 F Pulse Rate 57 L Respiratory Rate 16 16 Blood Pressure 145/70 H Pulse Oximetry 100 35 L Intake & Output 03/12/18 03/13/18 03/13/18 18:59 06:59 18:59 Intake Total 1205 / 1205 905 / 905 Output Total 1949 Balance -745 / -745 905 / 905 Weight 75 kg 75.8 kg Intake: IV 1205 / 1205 905 / 905 Diprivan 1000 mg/100 ml Inj 1, 100 / 100 50 / 50 000 mg In 100 ml @ 5 MCG/KG/MIN 2.25 mls/hr IV.CONT TITRATE PRN Rx#:[id number] NS Inj 1,000 ML @ 150 mls/hr IV 1000 / 1000 750 / 750 .CONT .Q6H40M MEGHAN Rx#:[id number] Keppra Inj 500 MG In NS Inj 100 105 / 105 105 / 105 ML @ 400 mls/hr IV.SIG Q12H MEGHAN Rx#:[id number] Output: Urine Amount (Catheter) 1949 Indwelling Urethral Catheter 1949 Other: Weight On Admission 75 kg Result Diagrams: 03/13/18 03:17 03/13/18 03:17 Imaging: Impressions Chest X-Ray 03/12/18 18:18 CONCLUSION: 1. No acute intrathoracic trauma. 2. Endotracheal tube in good position 4 cm above the yaritza. Pelvis X-Ray 03/12/18 18:18 CONCLUSION: Satisfactory trauma pelvis appearance Abdomen/Pelvis CT 03/12/18 18:23 CONCLUSION: 1. No acute injury in the abdomen or pelvis. 2. Mildly dilated urinary bladder with mild bilateral hydronephrosis and/or parapelvic renal cysts. This could be more definitively evaluated with delayed scanning following placement of a Junior catheter 3. Moderate gaseous distention of the stomach and small bowel. Chest CT 03/12/18 18:23 CONCLUSION: 1. Posterior bibasilar atelectasis. 2. Coronary artery calcium patient. 3. No acute intrathoracic trauma. Cervical Spine CT 03/12/18 18:24 CONCLUSION: 1. No acute bony injury in the cervical spine. 2. Significant disc disease and degenerative spondylosis with fairly significant suspected canal stenosis in the lower cervical spine as described. Head CT 03/12/18 18:24 CONCLUSION: Areas of intracranial hemorrhage and parenchymal contusion as described above. No acute surgical findings. . Aggression Score: 14.00 - Exam MARKETING DATABASE ANALYST: Sedated on small dose of Versed throughout the night which has been discontinued this morning At this point awaiting to see patients reaction to discontinuation of sedation however he is opening his eyes and fluttering eyelids but otherwise no responding to any verbal or tactile stimuli Withdraws to pain Hugo Coma Scale about 5E Hemodynamic/Cardiac: Hemodynamically stable Pulmonary/Respiratory: Hemodynamically patient stable Bilateral good breath sounds good PO2 FiO2 gradient on 35% FiO2 assist control mode ventilation Abdomen/GI Nutrition: Abdomen soft no signs of trauma to the abdomen Renal/I&O: Renal function well-preserved good urine output at this point patient is euvolemic Assessment and Plan Attestation: MRI of the brain pending and based on the same as well as patient's clinical progression will decide upon further measures Critical care 36 minutes
--- NOTE | 2018-03-13 14:03 | P.PNNS ---
Subjective Interval history: 03/13: patient seen early this morning during rounds, intubated, sedated. nursing reports minimally responds in the lower extremities. not opening eyes or following commands. <Karin Allen - Last Filed: 03/13/18 14:54> Physical Exam Vital signs: Vital Signs 03/12/18 18:14 03/12/18 19:07 03/12/18 19:13 Temperature Pulse Rate Respiratory Rate 16 Blood Pressure Pulse Oximetry 97 100 100 03/12/18 19:15 03/12/18 19:20 03/12/18 19:25 Temperature Pulse Rate Respiratory Rate 18 Blood Pressure Pulse Oximetry 100 100 100 03/12/18 19:27 03/12/18 19:50 03/12/18 20:21 Temperature Pulse Rate 65 59 L Respiratory Rate 16 16 18 Blood Pressure 155/78 H 162/77 H Pulse Oximetry 100 100 100 03/12/18 20:30 03/12/18 22:10 03/13/18 00:00 Temperature 100.1 F H Pulse Rate 71 56 L Respiratory Rate 16 16 Blood Pressure 115/60 Pulse Oximetry 100 100 100 03/13/18 01:47 03/13/18 04:00 03/13/18 04:07 Temperature 99.2 F Pulse Rate 55 L Respiratory Rate 16 16 16 Blood Pressure 125/68 Pulse Oximetry 100 100 100 03/13/18 08:00 03/13/18 08:05 03/13/18 09:00 Temperature 99 F Pulse Rate 59 L 58 L 59 L Respiratory Rate 16 17 Blood Pressure 112/69 Pulse Oximetry 100 100 03/13/18 12:00 03/13/18 12:01 Temperature 98.7 F Pulse Rate 57 L Respiratory Rate 16 16 Blood Pressure 145/70 H Pulse Oximetry 100 35 L Intake & Output 03/12/18 03/13/18 03/13/18 18:59 06:59 18:59 Intake Total 1205 / 1205 905 / 905 Output Total 1950 / 1950 Balance -745 / -745 905 / 905 Weight 75 kg 75.8 kg Intake: IV 1205 / 1205 905 / 905 Diprivan 1000 mg/100 ml Inj 1, 100 / 100 50 / 50 000 mg In 100 ml @ 5 MCG/KG/MIN 2.25 mls/hr IV.CONT TITRATE PRN Rx#:[id number] NS Inj 1,000 ML @ 150 mls/hr IV 1000 / 1000 750 / 750 .CONT .Q6H40M MEGHAN Rx#:[id number] Keppra Inj 500 MG In NS Inj 100 105 / 105 105 / 105 ML @ 400 mls/hr IV.SIG Q12H MEGHAN Rx#:[id number] Output: Urine Amount (Catheter) 1949 Indwelling Urethral Catheter 1949 Other: Weight On Admission 75 kg Narrative: GENERAL: Elderly male. Intubated. SKIN: Warm and dry. HEAD: Normocephalic. EYES: No scleral icterus. No injection or drainage. NECK: Supple, trachea midline. No JVD or lymphadenopathy. CARDIOVASCULAR: Regular rate and rhythm RESPIRATORY: mechanically ventilated. GASTROINTESTINAL: Abdomen soft, non-tender, nondistended. MUSCULOSKELETAL: No cyanosis, or edema. Neuro: pupils 2 mm bilaterally. Conjugate gaze. Not following commands for motor testing, minimally responsive to pain in lower extremities. - Urinary Catheter Management Indwelling Urethral Catheter Cath placed during this visit: yes Reason for continuing: Other continuation reason Insertion date: 03/13/18 Insertion time: 03:00 <Karin Allen - Last Filed: 03/13/18 14:54> Vital signs: Vital Signs 03/12/18 18:14 03/12/18 19:07 03/12/18 19:13 Temperature Pulse Rate Respiratory Rate 16 Blood Pressure Pulse Oximetry 97 100 100 03/12/18 19:15 03/12/18 19:20 03/12/18 19:25 Temperature Pulse Rate Respiratory Rate 18 Blood Pressure Pulse Oximetry 100 100 100 03/12/18 19:27 03/12/18 19:50 03/12/18 20:21 Temperature Pulse Rate 65 59 L Respiratory Rate 16 16 18 Blood Pressure 155/78 H 162/77 H Pulse Oximetry 100 100 100 03/12/18 20:30 03/12/18 22:10 03/13/18 00:00 Temperature 100.1 F H Pulse Rate 71 56 L Respiratory Rate 16 16 Blood Pressure 115/60 Pulse Oximetry 100 100 100 03/13/18 01:47 03/13/18 04:00 03/13/18 04:07 Temperature 99.2 F Pulse Rate 55 L Respiratory Rate 16 16 16 Blood Pressure 125/68 Pulse Oximetry 100 100 100 03/13/18 08:00 03/13/18 08:05 03/13/18 09:00 Temperature 99 F Pulse Rate 59 L 58 L 59 L Respiratory Rate 16 17 Blood Pressure 112/69 Pulse Oximetry 100 100 03/13/18 12:00 03/13/18 12:01 03/13/18 16:25 Temperature 98.7 F Pulse Rate 57 L 71 Respiratory Rate 16 16 16 Blood Pressure 145/70 H Pulse Oximetry 100 35 L 100 Intake & Output 03/12/18 03/13/18 03/13/18 18:59 06:59 18:59 Intake Total 1205 / 1205 905 / 905 Output Total 1949 Balance -745 / -745 905 / 905 Weight 75 kg 75.8 kg Intake: IV 1205 / 1205 905 / 905 Diprivan 1000 mg/100 ml Inj 1, 100 / 100 50 / 50 000 mg In 100 ml @ 5 MCG/KG/MIN 2.25 mls/hr IV.CONT TITRATE PRN Rx#:[id number] NS Inj 1,000 ML @ 150 mls/hr IV 1000 / 1000 750 / 750 .CONT .Q6H40M MEGHAN Rx#:[id number] Keppra Inj 500 MG In NS Inj 100 105 / 105 105 / 105 ML @ 400 mls/hr IV.SIG Q12H MEGHAN Rx#:[id number] Output: Urine Amount (Catheter) 1949 Indwelling Urethral Catheter 1949 Other: Weight On Admission 75 kg Narrative: he is intubated and sedated. Minimal response to painful stimuli with all 4 extremities. Cranial Nerves: Pupils equal, 3 mm round, reactive to light. Eyes appear conjugated. There was no nystagmus, no papilledema. Face musculature appeared symmetrical at rest. Face sensation, olfaction, and hearing cannot be adequately assessed due to the patient's neurological condition. The patient has a corneal reflex. The patient has a gag reflex. The sternocleidomastoid and trapezius were symmetrical. Cervical Spine: The patient's neck is soft, supple, without nuchal rigidity. Motor: His muscle tone and bulk are normal. He moves minimally all 4 extremities symmetrically. Reflexes: Deep tendon reflexes are 2+ and symmetrical in the biceps, triceps, and brachioradialis, bilaterally, in the upper extremities. In the lower extremities, the patellar and ankles are 2+, bilaterally. There is a bilateral plantar flexion response. There is no clonus or other abnormal reflexes noted. Sensory: On examination there there is response to painful stimuli, withdrawing with both upper and lower extremities. Cerebellar: Examination cannot be adequately assessed due to the patient's neurological condition. Lungs: clear Heart: Regular rhythm and rate Skin: warm and dry - Urinary Catheter Management Indwelling Urethral Catheter Cath placed during this visit: no <Ry Marrero - Last Filed: 03/13/18 17:06> Assessment and Plan - Plan Assessment Elderly male TBI CT Brain 03/12 There is a small volume of blood in the posterior horns of the lateral ventricles. minimal subarachnoid blood present in the posterior sylvian fissures bilaterally. A small hemorrhage is present in the quadrigeminal plate region asymmetric to the right. No evidence of significant brain shift. Plan: nonoperative management cont serial neuro checks every hour critical care management per trauma team SCDs and TEDs protonix seizure prophylaxis <Karin Allen - Last Filed: 03/13/18 14:54> - Plan He remains sedated on small dose of Versed throughout the night. Awaiting to see patients reaction to discontinuation of sedation. He is opening his eyes and fluttering eyelids but otherwise no responding to any verbal or tactile stimuli. Withdraws to pain. Hugo Coma Scale about 5E Continue neuro checks in a serial fashion. MRI brain to be done today Pulmonary: Continue aggressive pulmonary toilette, nasotracheal suction, and breathing treatments with nebulizers. Daily PT and OT Renal: Continue to monitor closely urine output, BUN and creatinine Endocrine: Continue to Monitor serial Acu checks and SSI as needed in detail ID continue to monitor for signs of infection Continue Protonix for stress ulcer prophylaxis Continue Abhijeet hose and SCD's for DVT prophylaxis Further recommendations will be provided depending on the patient's clinical evaluation and follow up studies. The exam, history, and the medical decision-making described in the above note were completed with the assistance of the mid-level provider. I reviewed and agree with the findings presented. I attest that I had a [id number] encounter with the patient on the same day, and personally performed and documented my assessment and findings in the medical record. <Ry Marrero - Last Filed: 03/13/18 17:06>
--- NOTE | 2018-03-13 21:23 | ECG ---
Date Performed: 03/12/2018 Time Performed: 23:32:38 PTAGE: 89 years EKG: Sinus bradycardia. Normal ECG except for rate PREVIOUS TRACING : 03/12/2018 19.34 Since the previous tracing, no significant change not ed DOCTOR: Gordy Kyle Interpretating Date/Time 03/13/2018 21:21:15
--- NOTE | 2018-03-13 21:33 | ECG ---
Date Performed: 03/12/2018 Time Performed: 19:34:24 PTAGE: 89 years EKG: SINUS BRADYCARDIA ABNORMAL RHYTHM ECG NO PREVIOUS TRACING DOCTOR: Gordy Kyle Interpretating Date/Time 03/13/2018 21:32:02
--- NOTE | 2018-03-13 22:13 | MR ---
EXAM DATE: 03/13/2018 10:02 PM EDT AGE/SEX: 89 years / Male INDICATIONS: . TBI. Found at bottom of ladder. CLINICAL DATA: This is the patient's subsequent encounter. Patient reports that signs and symptoms h ave been present for 1 day and indicates a pain score of Nonresponsive. MEDICAL/SURGICAL HISTORY: Non-responsive. Non-responsive. [place] [facility] [place]. . TECHNIQUE: Multiplanar, multisequence examination of the brain was performed without contrast. FINDINGS: Cerebrum: There is hemorrhage seen in the dependent portions of the lateral ventricles bilaterally. The lateral ventricles are dilated. There is a small amount of hemorrhage in the posterior right four th ventricle. There is hemorrhage seen in the posterior right lateral midbrain. This measures 1.7 x 0 .9 x 1.1 cm. Surrounding edema seen in this region. There are several foci of increased signal seen w ithin the sulci consistent with subarachnoid hemorrhage. No areas of acute infarction are seen. The p ituitary gland and suprasellar cistern are normal in configuration. White Matter: There is increased signal within the periventricular white matter. Posterior Fossa: There is increased signal in the right lateral midbrain. There is also increased sig nal seen in the superior posterior left cerebellar hemisphere. Diffusion Imaging: No focal areas of restricted diffusion are seen. No evidence of acute infarction . Extracranial: The visualized portions of the orbits and paranasal sinuses are unremarkable. There ap pears to be a subgaleal area of edema or hemorrhage seen in the posterior superior parietal scalp. CONCLUSION: 1. Interventricular hemorrhage with dilatation of the ventricles. 2. Subarachnoid hemorrhage. 3. Focal hemorrhage in the posterior right lateral midbrain with surrounding edema. This could be f rom the presumed fall. An underlying vascular lesion in this region could also be suspected. 4. Mild focal edema in the posterior left cerebellar hemisphere. 5. Suspected subgaleal hemorrhage or edema in the parietal scalp region. Electronically signed by: Antoni Weiner MD 03/13/2018 10:12 PM EDT
--- NOTE | 2018-03-13 22:41 | CT ---
EXAM DATE: 03/13/2018 10:35 PM EDT AGE/SEX: 89 years / Male INDICATIONS: Evaluate for occlusion. Non-responsive. Recent trauma alert. CLINICAL DATA: This is the patient's subsequent encounter. Patient reports that signs and symptoms h ave been present for 2 days and indicates a pain score of Nonresponsive. MEDICAL/SURGICAL HISTORY: Non-responsive. Non-responsive. RADIATION DOSE: 10.98 CTDI (mGy) [place] [facility] [place], 03/12/2018. . TECHNIQUE: Volumetric scanning was performed using a multirow detector CT scanner during bolus infus ion of 75 ml Omnipaque 350 (iohexol) nonionic water-soluble contrast as a single exam dose. The da ta was postprocessed with a variety of visualization algorithms including full-volume maximum intensi ty projection, multiplanar sliding thin-slab reformation, curved-planar reformation, and surface-rend ering techniques. Using automated exposure control and adjustment of the mA and/or kV according to p atient size, radiation dose was kept as low as reasonably achievable to obtain optimal diagnostic shirley lity images. DICOM format image data is available electronically for review and comparison. FINDINGS: Aortic Arch: There is a three-vessel origin of the great vessels from the aorta. No evidence of ost ial narrowing Right Carotid: The common carotid artery is intact. The carotid bulb has a normal configuration wit hout ulceration or narrowing. The internal carotid artery lumen is smooth without stenosis. The ext ernal carotid artery is intact. Left Carotid: The common carotid artery is intact. The carotid bulb has a normal configuration witho ut ulceration or narrowing. There is mild plaque at the left proximal internal carotid artery region with calcification. Significant stenosis is not seen. The external carotid artery is intact. Vertebrals: The vertebral arteries have a symmetric diameter. No stenotic lesions are seen. Acute hemorrhage is seen in the posterior right midbrain and in the posterior aspects of the lateral ventricles bilaterally. Percent stenosis is calculated using the diameter of the stenotic region over the diameter of the nor mal distal internal carotid artery. CONCLUSION: Mild plaque at the left proximal internal carotid artery without significant stenosis. Electronically signed by: Antoni Weiner MD 03/13/2018 10:40 PM EDT
[2018-03-14] MEDS: Sod Chloride 0.9% Inj 1,000 ML IV.CONT SCH ×3 (00:47→16:53)
[2018-03-14] MEDS: Oral Hygiene Kit OROPHARYNG SCH ×5 (00:48→23:36)
[2018-03-14] MEDS: Chlorhexidine Gluconate 2% 1 Pack (2 Cloths) TOPICAL SCH (03:33)
[2018-03-14 04:34] LABS: Baso % (Auto) 0.3 % (0.0-2.0); Eos % (Auto) 0.2 % (0.0-4.0); Hematocrit 38.9 % (39.0-51.0); Hemoglobin 13.3 gm/dL (13.0-17.0); Lymph # (Auto) 0.8 th/mm3 (1.0-4.8); Lymph % (Auto) 9.9 % (9.0-44.0); Mean Corpuscular HGB Conc 34.2 % (32.0-36.0); Mean Corpuscular Hemoglobin 31.4 pg (27.0-34.0); Mean Corpuscular Volume 91.8 fL (80.0-100.0); Mean Platelet Volume 9.3 fL (7.0-11.0); Mono # (Auto) 1.1 th/mm3 (0.0-0.9); Mono % (Auto) 14.2 % (0.0-8.0); Neut # (Auto) 5.9 th/mm3 (1.8-7.7); Neut % (Auto) 75.4 % (16.0-70.0); Platelet Count 124 th/mm3 (150-450); Red Blood Count 4.24 mil/mm3 (4.50-5.90); Red Cell Distribution Width 13.8 % (11.6-17.2); White Blood Count 7.8 th/mm3 (4.0-11.0)
[2018-03-14 04:43] LABS: Carbon Dioxide 23.2 meq/L (21.0-32.0); Potassium 3.7 meq/L (3.5-5.1)
[2018-03-14] MEDS: Chlorhexidine 0.12% Oral Kit 15 ML UDC OROPHARYNG SCH ×2 (07:55→20:32)
--- NOTE | 2018-03-14 08:07 | P.PNNPSY ---
- Behavior Intact: Impulsive/agitated - Progress Notes/Response to Treatment Contents of Sessions: Adjustment, Level of consciousness Time with Patient: 30 minutes Premorbid Psychological Status: Premorbid Cognitive, Emotional and Behavioral Status: Unable to Assess. The patient is presumed to have high school years of education and an unknown work history prior to this injury. The patient has no known prior psychiatric difficulties, as described above. Substance abuse history is unclear. Behavioral Reactions of Patient and Family/Support System: Deferred. The patients family is experiencing ongoing issues of adjustment given the nature of the injury, and this aspect of recovery will require ongoing monitoring. Emotional/Behavioral Status of Patient and Family/Support System: Deferred. Pertinent issues, if appropriate to this patients clinical care, are described in detail above. Maximizing Acute Care Outcome: It is recommended that the patient be monitored for emergent behavioral impulsivity as the medical condition evolves. This patients neuropathological challenges may limit rehabilitation potential going forward, and these challenges will require specialized therapeutic skills to maximize outcome. Additionally, the patients family is experiencing ongoing issues of adjustment given the traumatic nature of the injury, and they may benefit from ongoing psychological assistance. At this point in the recovery process, the patient does not have cognitive capacity as the patient is unable to understand a situation and its likely consequences, nor is the patient able to manipulate information rationally. Cognitive capacity will be assessed throughout the recovery process. Anticipated Problems: Ongoing areas of concern will include behavioral impulsivity, lack of insight and judgment, which is expected to improve with time and treatment. Given the severity of the patient's injuries it is my clinical opinion that this patient will be unable to return to any type of productive employment for at least one year, perhaps longer and likely never. This patient is not considered safe to discharge home without supervision. Treatment Plan: This clinician will continue to follow with you throughout the course of this patients rehabilitation treatment, and I will be available to meet with the patients family/support system to facilitate their understanding and the ongoing care of their family member. The goals of neuropsychological intervention shall be both educational and supportive to the family/support system as is deemed clinically appropriate. [place] COG Scale: Level IV Disinhibition Score: 14.00 Aggression Score: 14.00 Lability Score: 14.00 Agitated Behavior Total Score: 14 Impression: Older gentleman who is s/p TBI 2T fall from ladder on 03/12/2018. Progress Note Narrative: PTD 2. Brain MRI showed interventricular hemorrhage with ventricle dilation, SAH and focal hemorrhage in the posterior right lateral midbrain. He is noted to withdraw to pain, but today with no sedation, he is awake and follows, but is impulsive, consistent with Rancho IV. No issues of agitation/restlessness at present. ABS is 14 (14,14,14). Trauma team started propranolol 10 q8H. Sedation has been weaned to determine neurobehavioral response at this point in recovery. I will follow. - Diagnosis (1) Major neurocognitive disorder as late effect of traumatic brain injury without behavioral disturbance Status: Acute
[2018-03-14] MEDS: Senna/Docusate Sodium 8.6/50 MG Tablet PO SCH ×2 (09:23→20:33)
[2018-03-14] MEDS: Famotidine PF Inj 20 MG/2 ML Vial IV.PUSH SCH ×2 (09:23→20:32)
--- NOTE | 2018-03-14 11:40 | P.DIET ---
Nutritional Evaluation Type of nutrition evaluation: initial Nutrition consult regarding: Tube Feeding Objective - Diagnosis TBI, Coma - Objective % IBW: 93 (IBW = 172#) Body Weight Used for Calculations: Actual (73.1 kg) Energy Needs - Lower Range (kCal/kg): 25 Energy Needs - Upper Range (kCal/kg): 30 Lower Limit kCal/kg (kCals): 1,828 Upper Limit kCal/kg (kCals): 2,193 Lower Limit Protein Factor (Grams per Kg): 1.2 Upper Limit Protein Factor (Grams per Kg): 1.6 Lower Protein Needs (Protein): 88 Upper Protein Needs (Protein): 117 Dietitian Reviewed in Medical Record: Curent medications, Intake & Output, Labs , Medical history, Tube feeding Diet Order: NPO Assessment Assessment: Pt is at high nutrition risk 2' to his need for TFing. Current order is for Jevity 1.5 @ 20 mls/hr. To meet needs with Jevity 1.5, recommend goal rate of 60 mls/hr to provide 2160 kcals, 92 gms protein and 1094 mls of free water. Recommendations: Jevity 1.5 @ 60 mls/hr goal rate Dietitian to Monitor: Lab values, Intake & Output, Tube feeding tolerance, Weight change, Medical course
[2018-03-14] MEDS: fentaNYL Citrate Inj 100 MCG/2 ML Ampul IV.PUSH PRN ×2 (12:19→20:47)
--- NOTE | 2018-03-14 12:20 | P.PNCC ---
Subjective Brief History: Elderly gentleman found under a ladder and presumably fell off the ladder sometimes with the last 24 hours. Patient was transferred to our institution as priority 1 trauma alert and on arrival patient is [place] coma scale of about 4-5 moving some. Patient was intubated ventilated The patient underwent laboratory and diagnostic workup. After resuscitation, was found to have intracranial hemorrhage with small area of contusion on the right and then a small area of concentrated bleeding in the quadrigeminal plate. No other injuries are noted. The patient has bilateral severe hydronephrosis and parapelvic renal cysts that can be evaluated at a different time. At this point, I am not sure if the patient fell off the ladder and sustained injuries or perhaps he had a stroke in the quadrigeminal area, which is hemorrhagic and then fell off the ladder. Either way, patient is taken care of in the ICU. Appropriate services are consulted. 24 Hour Review/Hospital Course: Sedated on small dose of Versed throughout the night which has been discontinued this morning At this point awaiting to see patients reaction to discontinuation of sedation however he is opening his eyes and fluttering eyelids but otherwise no responding to any verbal or tactile stimuli Withdraws to pain [place] Coma Scale about 5E Hemodynamically patient stable Bilateral good breath sounds good PO2 FiO2 gradient on 35% FiO2 assist control mode ventilation Renal function preserved Discuss further with Dr. Marrero and will go ahead with MRI of the brain and based on the findings decide which way to go 03/14 off sedation today-patient's eyes are open, he is not following commands however withdrawing to pain Neuro status clearly improved He remains hemodynamically normal with adequate urine output He is slightly hypertensive, will start him on oral propranolol CT of the neck vessels have been negative-however he may have had bleeding secondary existing aneurysm-we will proceed with a CTA of the head Objective Vital Signs / I&O: Vital Signs 03/13/18 16:00 03/13/18 16:25 03/13/18 20:00 Temperature 98.9 F 100.7 F H Pulse Rate 70 71 75 Respiratory Rate 16 16 16 Blood Pressure 167/75 H 145/75 H Pulse Oximetry 100 100 100 03/13/18 20:48 03/13/18 20:52 03/13/18 21:20 Temperature Pulse Rate 79 Respiratory Rate 16 16 Blood Pressure Pulse Oximetry 100 100 03/13/18 23:40 03/14/18 00:00 03/14/18 04:00 Temperature 100.7 F H 100.5 F H Pulse Rate 74 80 Respiratory Rate 16 16 16 Blood Pressure 153/74 H 142/69 H Pulse Oximetry 98 98 98 03/14/18 04:03 03/14/18 08:06 03/14/18 11:21 Temperature Pulse Rate 75 82 Respiratory Rate 16 16 16 Blood Pressure Pulse Oximetry 98 100 100 Intake & Output 03/13/18 03/14/18 03/14/18 18:59 06:59 18:59 Intake Total 985 / 985 1105 / 1105 Output Total 525 / 525 650 / 650 Balance 460 / 460 455 / 455 Weight 73.1 kg Intake: IV 905 / 905 1105 / 1105 Diprivan 1000 mg/100 ml Inj 1, 50 / 50 000 mg In 100 ml @ 5 MCG/KG/MIN 2.25 mls/hr IV.CONT TITRATE PRN Rx#:[id number] NS Inj 1,000 ML @ 80 mls/hr IV. 750 / 750 1000 / 1000 CONT .[id number] MEGHAN Rx#:[id number] Keppra Inj 500 MG In NS Inj 100 105 / 105 105 / 105 ML @ 400 mls/hr IV.SIG Q12H MEGHAN Rx#:[id number] Oral 80 / 80 Output: Urine Amount (Catheter) 525 / 525 650 / 650 Indwelling Urethral Catheter 525 / 525 650 / 650 Other: # Bowel Movements 0 Result Diagrams: 03/14/18 02:46 03/14/18 02:46 Imaging: Impressions Head MRI 03/13/18 00:00 CONCLUSION: 1. Interventricular hemorrhage with dilatation of the ventricles. 2. Subarachnoid hemorrhage. 3. Focal hemorrhage in the posterior right lateral midbrain with surrounding edema. This could be from the presumed fall. An underlying vascular lesion in this region could also be suspected. 4. Mild focal edema in the posterior left cerebellar hemisphere. 5. Suspected subgaleal hemorrhage or edema in the parietal scalp region. Neck CTA 03/13/18 00:00 CONCLUSION: Mild plaque at the left proximal internal carotid artery without significant stenosis. Disinhibition Score: 14.00 Aggression Score: 14.00 Lability Score: 14.00 Agitated Behavior Total Score: 14 - Exam CTC OPERATOR: Awake open eyes tracking not following commands Hemodynamic/Cardiac: Hemodynamically normal Pulmonary/Respiratory: Breath sounds clear bilateral chest x-ray stable Abdomen/GI Nutrition: Soft benign n.p.o. Renal/I&O: BUN/creatinine ratio more than 20 Assessment and Plan Plan: Start CPAP trials when patient more awake Obtain a CT of the head to rule out aneurysm Continue mechanical ventilation Continue neuro protection Start DVT prophylaxis 24 hours
--- NOTE | 2018-03-14 22:17 | CT ---
EXAM DATE: 03/14/2018 10:13 PM EDT AGE/SEX: 82 years / Male INDICATIONS: Follow up traumatic brain injury. CLINICAL DATA: This is the patient's subsequent encounter. Patient reports that signs and symptoms h ave been present for 2 days and indicates a pain score of 0/10. MEDICAL/SURGICAL HISTORY: None. None. RADIATION DOSE: 52.83 CTDI (mGy) COMPARISON: [facility] [place]/O [place]AST, 03/12/2018. . TECHNIQUE: CT of the head without contrast. Using automated exposure control and adjustment of the mA and/or kV according to patient size, radiation dose was kept as low as reasonably achievable to ob tain optimal diagnostic quality images. DICOM format image data is available electronically for revi ew and comparison. FINDINGS: Cerebrum: There continues to be intraventricular hemorrhage in the posterior aspects of the lateral ventricles bilaterally. There is a focal area of hemorrhage in the posterior lateral right midbrain. There is minimal subarachnoid hemorrhage seen in the posterior temporal regions bilaterally. All thes e findings are stable. There is dilatation of the lateral ventricles. There is widening of the cortic al sulci. There is decreased density seen throughout the cerebral white matter. The ventricles are no rmal for age. No evidence of midline shift, mass lesion, hemorrhage or acute infarction. No extraax ial fluid collections are seen. Posterior Fossa: The cerebellum and brainstem are intact. The 4th ventricle is midline. The cerebe llopontine angle is unremarkable. Extracranial: The visualized portion of the orbits is intact. There is an air-fluid level seen in th e left maxillary sinus. Skull: The calvaria is intact. No evidence of skull fracture. CONCLUSION: 1. Persistent intraventricular, subarachnoid and right midbrain hemorrhage. 2. Persistent ventricular dilatation especially of the lateral ventricles. 3. Low density seen throughout the cerebral white matter likely from underlying small vessel ischemi c change. . Electronically signed by: Antoni Weiner MD 03/14/2018 10:16 PM EDT
--- NOTE | 2018-03-14 23:14 | CT ---
EXAM DATE: 03/14/2018 11:02 PM EDT AGE/SEX: 82 years / Male INDICATIONS: Evaluate for aneurysm. CLINICAL DATA: This is the patient's initial encounter. Patient reports that signs and symptoms have been present for 1 day and indicates a pain score of 0/10. MEDICAL/SURGICAL HISTORY: None. None. RADIATION DOSE: 10.23 CTDI (mGy) ; Combined studies COMPARISON: [facility], CTA NECK W CONTRAST W 3D, 03/13/2018.. . TECHNIQUE: Volumetric scanning was performed using a multirow detector CT scanner during bolus infus ion of 74 ml Omnipaque 350 (iohexol) nonionic water-soluble contrast as a single exam dose. The da ta was postprocessed with a variety of visualization algorithms including full-volume maximum intensi ty projection, multiplanar sliding thin-slab reformation, curved-planar reformation, and surface-rend ering techniques. Using automated exposure control and adjustment of the mA and/or kV according to p atient size, radiation dose was kept as low as reasonably achievable to obtain optimal diagnostic shirley lity images. DICOM format image data is available electronically for review and comparison. FINDINGS: Aortic Arch: There is a three-vessel origin of the great vessels from the aorta. No evidence of ost ial narrowing Right Carotid: The common carotid artery is intact. The carotid bulb has a normal configuration wit hout ulceration or narrowing. The internal carotid artery lumen is smooth without stenosis. The ext ernal carotid artery is intact. Left Carotid: The common carotid artery is intact. The carotid bulb has a normal configuration with out ulceration or narrowing. The internal carotid artery lumen is smooth without stenosis. The exte rnal carotid artery is intact. Vertebrals: The vertebral arteries have a symmetric diameter. No stenotic lesions are seen. Endotracheal tube and nasogastric tube noted. Percent stenosis is calculated using the diameter of the stenotic region over the diameter of the nor mal distal internal carotid artery. CONCLUSION: 1. Patent carotid arteries and vertebral arteries bilaterally. No aneurysm. Electronically signed by: Ankur Greenfield MD 03/14/2018 11:13 PM EDT
--- NOTE | 2018-03-14 23:23 | CT ---
EXAM DATE: 03/14/2018 10:53 PM EDT AGE/SEX: 82 years / Male INDICATIONS: Evaluate for aneurysm. CLINICAL DATA: This is the patient's initial encounter. Patient reports that signs and symptoms have been present for 1 day and indicates a pain score of 0/10. MEDICAL/SURGICAL HISTORY: None. None. RADIATION DOSE: 10.23 CTDI (mGy) ; Combined studies COMPARISON: [facility] – [place], CT HEAD W/O CONTRAST, 03/14/2018. . TECHNIQUE: Volumetric scanning was performed using a multi-row detector CT scanner during bolus infu lex of 74 ml Omnipaque 350 (iohexol) nonionic water-soluble contrast as a single exam dose. The d more was post processed with a variety of visualization algorithms including full volume maximum inten sity projection, multi-planar sliding thin slab reformation, curved planar reformation, and surface r endering techniques. Using automated exposure control and adjustment of the mA and/or kV according t o patient size, radiation dose was kept as low as reasonably achievable to obtain optimal diagnostic quality images. DICOM format image data is available electronically for review and comparison. FINDINGS: There is excellent visualization of the major intracranial arteries out to the second-order branch ve ssels. There is persistent circulation on the left. There is no evidence for aneurysm, vessel truncation or stenosis, and no evidence for vascular malformation. CONCLUSION: 1. No aneurysm. Electronically signed by: Ankur Greenfield MD 03/14/2018 11:21 PM EDT
[2018-03-15] MEDS: Sod Chloride 0.9% Inj 1,000 ML IV.CONT SCH ×4 (02:18→18:36)
[2018-03-15 04:12] LABS: Baso % (Auto) 0.3 % (0.0-2.0); Eos % (Auto) 0.1 % (0.0-4.0); Hematocrit 36.9 % (39.0-51.0); Lymph # (Auto) 0.3 th/mm3 (1.0-4.8); Lymph % (Auto) 4.4 % (9.0-44.0); Mean Corpuscular HGB Conc 35.2 % (32.0-36.0); Mean Corpuscular Hemoglobin 32.2 pg (27.0-34.0); Mean Corpuscular Volume 91.4 fL (80.0-100.0); Mean Platelet Volume 9.4 fL (7.0-11.0); Mono # (Auto) 0.8 th/mm3 (0.0-0.9); Mono % (Auto) 10.8 % (0.0-8.0); Neut # (Auto) 6.1 th/mm3 (1.8-7.7); Neut % (Auto) 84.4 % (16.0-70.0); Platelet Count 125 th/mm3 (150-450); Red Blood Count 4.04 mil/mm3 (4.50-5.90); Red Cell Distribution Width 13.4 % (11.6-17.2); White Blood Count 7.3 th/mm3 (4.0-11.0)
[2018-03-15] MEDS: Oral Hygiene Kit OROPHARYNG SCH ×3 (04:14→23:53)
[2018-03-15] MEDS: Chlorhexidine Gluconate 2% 1 Pack (2 Cloths) TOPICAL SCH (04:14)
[2018-03-15 04:32] LABS: Anion Gap 10 meq/L (5-15); Blood Urea Nitrogen 26 mg/dL (7-18); Calcium 8.1 mg/dL (8.5-10.1); Carbon Dioxide 23.7 meq/L (21.0-32.0); Chloride 111 meq/L (98-107); Glomerular Filtration Rate Greater Than 89 mL/min (>89); Glucose,Random 114 mg/dL (74-106); Potassium 3.6 meq/L (3.5-5.1); Sodium 145 meq/L (136-145)
[2018-03-15 06:05] LABS: ABG Base Excess -1.2 mmol/L (-2-2); ABG PCO2 31 mmHg (38-42); ABG PO2 116 mmHg (61-120)
--- NOTE | 2018-03-15 08:08 | P.PNNPSY ---
- Behavior Intact: Impulsive/agitated - Progress Notes/Response to Treatment Contents of Sessions: Adjustment, Level of consciousness Time with Patient: 30 minutes Premorbid Psychological Status: Premorbid Cognitive, Emotional and Behavioral Status: Unable to Assess. The patient is presumed to have high school years of education and an unknown work history prior to this injury. The patient has no known prior psychiatric difficulties, as described above. Substance abuse history is unclear. Behavioral Reactions of Patient and Family/Support System: Deferred. The patients family is experiencing ongoing issues of adjustment given the nature of the injury, and this aspect of recovery will require ongoing monitoring. Emotional/Behavioral Status of Patient and Family/Support System: Deferred. Pertinent issues, if appropriate to this patients clinical care, are described in detail above. Maximizing Acute Care Outcome: It is recommended that the patient be monitored for emergent behavioral impulsivity as the medical condition evolves. This patients neuropathological challenges may limit rehabilitation potential going forward, and these challenges will require specialized therapeutic skills to maximize outcome. Additionally, the patients family is experiencing ongoing issues of adjustment given the traumatic nature of the injury, and they may benefit from ongoing psychological assistance. At this point in the recovery process, the patient does not have cognitive capacity as the patient is unable to understand a situation and its likely consequences, nor is the patient able to manipulate information rationally. Cognitive capacity will be assessed throughout the recovery process. Anticipated Problems: Ongoing areas of concern will include behavioral impulsivity, lack of insight and judgment, which is expected to improve with time and treatment. Given the severity of the patient's injuries it is my clinical opinion that this patient will be unable to return to any type of productive employment for at least one year, perhaps longer and likely never. This patient is not considered safe to discharge home without supervision. Treatment Plan: This clinician will continue to follow with you throughout the course of this patients rehabilitation treatment, and I will be available to meet with the patients family/support system to facilitate their understanding and the ongoing care of their family member. The goals of neuropsychological intervention shall be both educational and supportive to the family/support system as is deemed clinically appropriate. [place] COG Scale: Level III Disinhibition Score: 14.00 Aggression Score: 14.00 Lability Score: 14.00 Agitated Behavior Total Score: 14 Impression: Older gentleman who is s/p TBI 2T fall from ladder on 03/12/2018. Progress Note Narrative: PTD 3. The patient is awake off sedation, not following commands. He is not agitated/restless with ABS of 14 (14,14,14). He is probably Rancho III. Trauma team started him on propranolol 20 q8H. He is not waking up as quickly as we would like. Trauma team is considering starting Amantadine 100 qD tomorrow. Palliative care is consulted as well. I will follow. - Diagnosis (1) Major neurocognitive disorder as late effect of traumatic brain injury without behavioral disturbance Status: Acute
--- NOTE | 2018-03-15 10:06 | P.PNNS ---
Subjective Interval history: 03/15: intubated, no sedative drips. nursing reports had followed command to move toes and moving extremities spontaneously. Physical Exam Vital signs: Vital Signs 03/14/18 11:21 03/14/18 12:00 03/14/18 15:24 Temperature 99.8 F H Pulse Rate 86 64 Respiratory Rate 16 30 H 17 Blood Pressure 161/101 H Pulse Oximetry 100 100 100 03/14/18 16:00 03/14/18 20:00 03/14/18 20:23 Temperature 99.9 F H 99.1 F Pulse Rate 60 63 57 L Respiratory Rate 34 H 16 16 Blood Pressure 171/79 H 171/78 H Pulse Oximetry 100 100 100 03/14/18 21:50 03/15/18 00:00 03/15/18 00:01 Temperature 98.9 F Pulse Rate 69 Respiratory Rate 16 16 Blood Pressure 110/58 L Pulse Oximetry 100 98 98 03/15/18 04:00 03/15/18 04:08 03/15/18 07:46 Temperature 100.8 F H Pulse Rate 66 62 54 L Respiratory Rate 16 16 16 Blood Pressure 122/64 Pulse Oximetry 97 97 98 Intake & Output 03/14/18 03/15/18 03/15/18 18:59 06:59 18:59 Intake Total 1105 / 1105 1324 / 1324 Output Total 950 / 950 475 / 475 Balance 155 / 155 849 / 849 Weight 79.1 kg Intake: IV 1105 / 1105 1105 / 1105 NS Inj 1,000 ML @ 80 mls/hr IV. 1000 / 1000 1000 / 1000 CONT .[id number] MEGHAN Rx#:[id number] Keppra Inj 500 MG In NS Inj 100 105 / 105 105 / 105 ML @ 400 mls/hr IV.SIG Q12H MEGHAN Rx#:[id number] Tube Feeding 159 / 159 Tube Irrigant 60 / 60 Output: Urine Amount (Catheter) 950 / 950 475 / 475 Indwelling Urethral Catheter 950 / 950 475 / 475 Other: Date of Last Bowel Movement 03/14/18 # Bowel Movements 0 1 Narrative: GENERAL: Elderly male. Intubated. No sedative drips. SKIN: Warm and dry. HEAD: Normocephalic. EYES: No scleral icterus. No injection or drainage. NECK: Supple, trachea midline. No JVD or lymphadenopathy. CARDIOVASCULAR: Regular rate and rhythm RESPIRATORY: mechanically ventilated. GASTROINTESTINAL: Abdomen soft, non-tender, nondistended. MUSCULOSKELETAL: No cyanosis, or edema. Neuro: Not opening eyes. pupils 2 mm bilaterally. Conjugate gaze. Not following commands for me, nursing reported followed to moving toes. minimally responsive to pain in lower extremities. - Urinary Catheter Management Indwelling Urethral Catheter Cath placed during this visit: yes Reason for continuing: Other continuation reason Insertion date: 03/13/18 Insertion time: 03:00 Assessment and Plan - Plan Assessment Elderly male TBI Cervical Spine CT 03/12/18 18:24 CONCLUSION: 1. No acute bony injury in the cervical spine. 2. Significant disc disease and degenerative spondylosis with fairly significant suspected canal stenosis in the lower cervical spine as described. Head MRI 03/13/18 00:00 CONCLUSION: 1. Interventricular hemorrhage with dilatation of the ventricles. 2. Subarachnoid hemorrhage. 3. Focal hemorrhage in the posterior right lateral midbrain with surrounding edema. This could be from the presumed fall. An underlying vascular lesion in this region could also be suspected. 4. Mild focal edema in the posterior left cerebellar hemisphere. 5. Suspected subgaleal hemorrhage or edema in the parietal scalp region. Head CT 03/14/18 00:00 CONCLUSION: 1. Persistent intraventricular, subarachnoid and right midbrain hemorrhage. 2. Persistent ventricular dilatation especially of the lateral ventricles. 3. Low density seen throughout the cerebral white matter likely from underlying small vessel ischemic change. Head CTA 03/14/18 00:00 CONCLUSION: 1. No aneurysm. Neck CTA 03/14/18 00:00 CONCLUSION: 1. Patent carotid arteries and vertebral arteries bilaterally. No aneurysm. CT Brain 03/12 There is a small volume of blood in the posterior horns of the lateral ventricles. minimal subarachnoid blood present in the posterior sylvian fissures bilaterally. A small hemorrhage is present in the quadrigeminal plate region asymmetric to the right. No evidence of significant brain shift. Plan: cont checks every hour follow up neuro exam critical care management per trauma team SCDs and TEDs protonix seizure prophylaxis
--- NOTE | 2018-03-15 10:45 | P.PNPAL ---
Palliative care consulted to assist with locating family. No past medical records. Google search produced possible relative Tanya Chu (age 29) #[phone] (rings then rings disconnected) or [phone] (just rings then rings disconnected).Only relative listed for her is patient. No potential matches found on social media. Per nurse there is a son, Americo Chu (age 52) [phone] in [place]. Also a friend Jo Phoenix [phone] (home) [phone] (cell). Google search identifes another possible relative Denise Chu (age 52) same address as son; possibly son's ??; [phone]. Palliative care working to identify health care proxy to address goals of medical treatment.
[2018-03-15] MEDS: Famotidine PF Inj 20 MG/2 ML Vial IV.PUSH SCH ×2 (11:22→20:20)
[2018-03-15] MEDS: Senna/Docusate Sodium 8.6/50 MG Tablet PO SCH ×2 (11:22→20:20)
[2018-03-15] MEDS: Chlorhexidine 0.12% Oral Kit 15 ML UDC OROPHARYNG SCH ×2 (11:22→20:21)
[2018-03-15] MEDS ORDERED: Sod Chloride 0.9% Inj 1,000 ML IV.SIG ONE (11:45)
--- NOTE | 2018-03-15 12:54 | P.PNCC ---
Subjective Brief History: Elderly gentleman found under a ladder and presumably fell off the ladder sometimes with the last 24 hours. Patient was transferred to our institution as priority 1 trauma alert and on arrival patient is [place] coma scale of about 4-5 moving some. Patient was intubated ventilated The patient underwent laboratory and diagnostic workup. After resuscitation, was found to have intracranial hemorrhage with small area of contusion on the right and then a small area of concentrated bleeding in the quadrigeminal plate. No other injuries are noted. The patient has bilateral severe hydronephrosis and parapelvic renal cysts that can be evaluated at a different time. At this point, I am not sure if the patient fell off the ladder and sustained injuries or perhaps he had a stroke in the quadrigeminal area, which is hemorrhagic and then fell off the ladder. Either way, patient is taken care of in the ICU. Appropriate services are consulted. 24 Hour Review/Hospital Course: 03/13 Sedated on small dose of Versed throughout the night which has been discontinued this morning At this point awaiting to see patients reaction to discontinuation of sedation however he is opening his eyes and fluttering eyelids but otherwise no responding to any verbal or tactile stimuli Withdraws to pain [place] Coma Scale about 5E Hemodynamically patient stable Bilateral good breath sounds good PO2 FiO2 gradient on 35% FiO2 assist control mode ventilation Renal function preserved Discuss further with Dr. Marrero and will go ahead with MRI of the brain and based on the findings decide which way to go 03/14 off sedation today-patient's eyes are open, he is not following commands however withdrawing to pain Neuro status clearly improved He remains hemodynamically normal with adequate urine output He is slightly hypertensive, will start him on oral propranolol CT of the neck vessels have been negative-however he may have had bleeding secondary existing aneurysm-we will proceed with a CTA of the head 03/15 On today's exam patient's are not open according to RN he follows commands at times very sluggishly He CTA shows no aneurysm the CT of the head is essentially stable His urine output is marginal is mildly dehydrated so he will receive 1 L of normal saline bolus Patient is on propranolol and clonidine so that will DC clonidine but keep propranolol in case hypertensive will managed with Norvasc, clonidine may potentially contribute to suppress mental status palliative care has been consulted for the goals of care as 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 Objective Vital Signs / I&O: Vital Signs 03/14/18 15:24 03/14/18 16:00 03/14/18 20:00 Temperature 99.9 F H 99.1 F Pulse Rate 64 60 63 Respiratory Rate 17 34 H 16 Blood Pressure 171/79 H 171/78 H Pulse Oximetry 100 100 100 03/14/18 20:23 03/14/18 21:50 03/15/18 00:00 Temperature 98.9 F Pulse Rate 57 L 69 Respiratory Rate 16 16 Blood Pressure 110/58 L Pulse Oximetry 100 100 98 03/15/18 00:01 03/15/18 04:00 03/15/18 04:08 Temperature 100.8 F H Pulse Rate 66 62 Respiratory Rate 16 16 16 Blood Pressure 122/64 Pulse Oximetry 98 97 97 03/15/18 07:46 03/15/18 11:14 Temperature Pulse Rate 54 L Respiratory Rate 16 26 H Blood Pressure Pulse Oximetry 98 98 Intake & Output 03/14/18 03/15/18 03/15/18 18:59 06:59 18:59 Intake Total 1105 / 1105 1324 / 1324 Output Total 950 / 950 475 / 475 Balance 155 / 155 849 / 849 Weight 79.1 kg Intake: IV 1105 / 1105 1105 / 1105 NS Inj 1,000 ML @ 80 mls/hr IV. 1000 / 1000 1000 / 1000 CONT .[id number] MEGHAN Rx#:[id number] Keppra Inj 500 MG In NS Inj 100 105 / 105 105 / 105 ML @ 400 mls/hr IV.SIG Q12H MEGHAN Rx#:[id number] Tube Feeding 159 / 159 Tube Irrigant 60 / 60 Output: Urine Amount (Catheter) 950 / 950 475 / 475 Indwelling Urethral Catheter 950 / 950 475 / 475 Other: Date of Last Bowel Movement 03/14/18 # Bowel Movements 0 1 Result Diagrams: 03/15/18 02:55 03/15/18 02:55 Imaging: Impressions Head CT 03/14/18 00:00 CONCLUSION: 1. Persistent intraventricular, subarachnoid and right midbrain hemorrhage. 2. Persistent ventricular dilatation especially of the lateral ventricles. 3. Low density seen throughout the cerebral white matter likely from underlying small vessel ischemic change. . Head CTA 03/14/18 00:00 CONCLUSION: 1. No aneurysm. Neck CTA 03/14/18 00:00 CONCLUSION: 1. Patent carotid arteries and vertebral arteries bilaterally. No aneurysm. Disinhibition Score: 14.00 Aggression Score: 14.00 Lability Score: 14.00 Agitated Behavior Total Score: 14 - Exam SMELTER LINER: GCS is 7 T Hemodynamic/Cardiac: Stable hemodynamically normotensive on propranolol Pulmonary/Respiratory: Breath sounds clear bilateral Abdomen/GI Nutrition: Abdomen soft tolerating tube Hematologic: hemoGlobin is stable Assessment and Plan Plan: Continue CPAP without extubation Continue tube feeds Continue mechanical ventilation Continue neuro protection Start DVT prophylaxis
--- NOTE | 2018-03-15 15:05 | P.CONPAL ---
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 care as best understood from advance directives and/or conversations and/or values * Current medical treatment options and benefits/burdens of those options * Likely scenarios comparing ongoing aggressive care with a transition to comfort measures only * Questions answered to the best of my ability * Palliative care contact information provided Assessment and Plan - Disease Oriented Problem List (1) Major neurocognitive disorder as late effect of traumatic brain injury without behavioral disturbance - Symptom Scale (1) Encephalopathy acute 0-10 Scale: 10 (2) Pain 0-10 Scale: Unable to quantify Pertinent Non-Medical Issues: Psychosocial: The patient was born in [facility] where he his first and had one son. 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 The son states he was extremely talented, but very stubborn. He his first many years ago and had remarried , however his second has been for approximately 5 years. Spiritual: Not an important concept of the patient. Legal: No advance directives. Ethical issues impacting care: None noted. . Important Contacts: Son: Elvin Chu Prognosis: His prognosis is guarded per the hospital intern. Advanced age, time down without treatment, dehydration, exposure and brain trauma may leave him substantially disabled. Family has made him a DO NOT RESUSCITATE status as they feel his ongoing function will be severely limited, which would be unacceptable to the patient, and if no significant improvement occurs over the weekend, family is currently planning for withdrawal of life support on Sunday. . Code Status: Alternative Code (Continue intubation only. No CPR, shock or ACLS protocol drugs.) Plan: PLAN: Legal decision maker: Patient is obtunded, intubated and not capacitated for healthcare decision making. His son, Elvin would be the legal proxy decision- maker per [place] statutes. He states he is willing to serve. Goals: To be determined CODE STATUS: Alternative code, continue intubation, no CPR, no shock, no ACLS drugs. SYMPTOMS: * Encephalopathy-patient remains encephalopathic, obtunded with declining reflexes after head trauma. He has been off sedation for 3 days now and where as he was previously withdrawing to pain in all 4 extremities, no response is elicited at this time. * Pain-he has received 2 doses of 50 mcg of fentanyl in the last 48 hours. Sources of pain likely multifactorial to include head trauma, invasive lines and tubes, bedbound status, restraints. At this time patient is not withdrawing to painful stimuli and is unable to make his needs known. SUMMARY This is an 82-year-old male who suffered a traumatic fall from a ladder, striking his head, rendering him unconscious where he laid for the next 18-24 hours prior to being found. He was admitted as a level 1 trauma alert and intubated in the field however no surgical intervention was felt to be required. He was admitted as a Antoni Greer but has now been identified and family located. The family would like to allow the weekend for any further neurologic recovery to be evidenced but have made him an alternative code with no cardiopulmonary resuscitation. They wish to continue intubation at this time but are considering withdrawal of life support on Sunday if there is no significant improvement. Palliative care will continue to follow the patient during hospital course as condition evolves, to assist patient/decision-maker with understanding of their medical conditions, weighing benefits/burdens of treatment options, for clarification of goals of treatment. Additionally will assist with any symptoms of palliative concern. . Appreciation Thank you for the opportunity to participate in the care of Orlando Chu. Attestation Attestation: To help prompt me to consider important information that might be impacting today's encounter and assessment, information from prior notes written by myself or my colleagues may have been "brought forward" into today's note. My signature on this note, however, is an attestation that I personally performed the exam, history, and/or decision-making noted today, and, unless otherwise indicated, the interactions with patient, family, and staff as well as the review of records all occurred today. I also attest that the listed assessment and stated plan reflect my best clinical judgment today based on the combination of historical information, prior notes, and today's exam/ interactions. When time spent is documented, it refers only to time spent today by the signer, or if indicated, combined time spent today by collaborating physician/nurse practitioner. .
[2018-03-15] MEDS: Heparin - SQ 10,000 UNITS/ML Vial SQ SCH (20:20)
[2018-03-16] MEDS: Chlorhexidine Gluconate 2% 1 Pack (2 Cloths) TOPICAL SCH (03:18)
[2018-03-16] MEDS: Oral Hygiene Kit OROPHARYNG SCH ×3 (03:18→17:29)
[2018-03-16 04:27] LABS: Baso % (Auto) 0.2 % (0.0-2.0); Eos % (Auto) 0.1 % (0.0-4.0); Hemoglobin 12.2 gm/dL (13.0-17.0); Lymph # (Auto) 0.6 th/mm3 (1.0-4.8); Lymph % (Auto) 9.8 % (9.0-44.0); Mean Corpuscular Hemoglobin 31.9 pg (27.0-34.0); Mean Corpuscular Volume 93.8 fL (80.0-100.0); Mean Platelet Volume 9.2 fL (7.0-11.0); Mono % (Auto) 16.1 % (0.0-8.0); Neut # (Auto) 4.5 th/mm3 (1.8-7.7); Neut % (Auto) 73.8 % (16.0-70.0); Platelet Count 125 th/mm3 (150-450); Red Blood Count 3.84 mil/mm3 (4.50-5.90); Red Cell Distribution Width 13.3 % (11.6-17.2); White Blood Count 6.1 th/mm3 (4.0-11.0)
[2018-03-16 05:18] LABS: Calcium 7.4 mg/dL (8.5-10.1); Carbon Dioxide 25.1 meq/L (21.0-32.0); Potassium 3.5 meq/L (3.5-5.1)
[2018-03-16] MEDS: Sod Chloride 0.9% Inj 1,000 ML IV.CONT SCH ×4 (05:36→18:36)
[2018-03-16 05:53] LABS: Total Protein 5.4 g/dL (6.4-8.2)
[2018-03-16] MEDS: Heparin - SQ 10,000 UNITS/ML Vial SQ SCH ×2 (08:53→22:17)
[2018-03-16] MEDS: Chlorhexidine 0.12% Oral Kit 15 ML UDC OROPHARYNG SCH ×2 (08:53→22:17)
--- NOTE | 2018-03-16 08:53 | P.PNNS ---
Subjective Interval history: Exam largely stable overnight. Remains poor. Palliative care team spoke to his son, who apparently wishes to give him a trial of extubation but then possibly withdraw care if that is not successful. Vital signs stable overnight. He did tolerate a multi-hour CPAP trial yesterday. Physical Exam Vital signs: Vital Signs 03/15/18 09:00 03/15/18 11:14 03/15/18 12:00 Temperature 100 F H Pulse Rate 62 58 L Respiratory Rate 26 H 25 H Blood Pressure 128/85 Pulse Oximetry 98 98 03/15/18 15:40 03/15/18 16:00 03/15/18 20:00 Temperature 100.2 F H 100.2 F H Pulse Rate 64 62 60 Respiratory Rate 16 29 H 16 Blood Pressure 144/67 H 148/67 H Pulse Oximetry 100 23 L 100 03/15/18 21:00 03/16/18 00:00 03/16/18 00:23 Temperature 99.6 F Pulse Rate 55 L 52 L Respiratory Rate 13 16 16 Blood Pressure 140/63 Pulse Oximetry 100 98 03/16/18 03:00 03/16/18 04:00 03/16/18 04:13 Temperature 98.9 F Pulse Rate 54 L 56 L Respiratory Rate 17 16 16 Blood Pressure 121/60 Pulse Oximetry 100 100 Intake & Output 03/15/18 03/16/18 03/16/18 18:59 06:59 18:59 Intake Total 1664 / 1664 2473 / 2473 Output Total 500 / 500 400 / 400 Balance 1164 / 1164 2073 / 2073 Weight 80.5 kg Intake: IV 1105 / 1105 1805 / 1805 NS Inj 1,000 ML @ 80 mls/hr IV. 1000 / 1000 700 / 700 CONT .[id number] [facility] Rx#:[id number] NS Inj 1,000 ML @ 999 mls/hr IV 1000 / 1000 .SIG .Q1H1M [facility] Rx#:[id number] Keppra Inj 500 MG In NS Inj 100 105 / 105 105 / 105 ML @ 400 mls/hr IV.SIG Q12H [facility] Rx#:[id number] Tube Feeding 459 / 459 608 / 608 Tube Irrigant 100 / 100 60 / 60 Output: Urine Amount (Catheter) 500 / 500 400 / 400 Indwelling Urethral Catheter 500 / 500 400 / 400 Other: Date of Last Bowel Movement 03/15/18 03/15/18 # Bowel Movements 1 1 - Routine Neurological Exam Intubated, off sedation for several days. Does not open eyes to any stimuli. Pupils small, left slightly larger than right, both reactive. Has essentially no response to vigorous noxious stimuli, both axillary pinching and sternal rub. Does not grimace. Not currently initiating any breaths on the ventilator. - Urinary Catheter Management Indwelling Urethral Catheter Cath placed during this visit: yes Reason for continuing: Hourly intake/output Insertion date: 03/13/18 Insertion time: 03:00 Assessment and Plan - Plan Assessment Elderly male TBI Cervical Spine CT 03/12/18 18:24 CONCLUSION: 1. No acute bony injury in the cervical spine. 2. Significant disc disease and degenerative spondylosis with fairly significant suspected canal stenosis in the lower cervical spine as described. Head MRI 03/13/18 00:00 CONCLUSION: 1. Interventricular hemorrhage with dilatation of the ventricles. 2. Subarachnoid hemorrhage. 3. Focal hemorrhage in the posterior right lateral midbrain with surrounding edema. This could be from the presumed fall. An underlying vascular lesion in this region could also be suspected. 4. Mild focal edema in the posterior left cerebellar hemisphere. 5. Suspected subgaleal hemorrhage or edema in the parietal scalp region. Head CT 03/14/18 00:00 CONCLUSION: 1. Persistent intraventricular, subarachnoid and right midbrain hemorrhage. 2. Persistent ventricular dilatation especially of the lateral ventricles. 3. Low density seen throughout the cerebral white matter likely from underlying small vessel ischemic change. Head CTA 03/14/18 00:00 CONCLUSION: 1. No aneurysm. Neck CTA 03/14/18 00:00 CONCLUSION: 1. Patent carotid arteries and vertebral arteries bilaterally. No aneurysm. CT Brain 03/12 There is a small volume of blood in the posterior horns of the lateral ventricles. minimal subarachnoid blood present in the posterior sylvian fissures bilaterally. A small hemorrhage is present in the quadrigeminal plate region asymmetric to the right. No evidence of significant brain shift. Plan: cont checks every hour follow up neuro exam critical care management per trauma team SCDs and TEDs protonix seizure prophylaxis Appreciate palliative care team involvement Work toward trial of extubation per family wishes Possible withdrawal of care if exam does not improve Do not see a good role for additional imaging studies right now; he has had multiple brain scans that do not show any actionable hemorrhage, infarct, etc.
[2018-03-16] MEDS: Senna/Docusate Sodium 8.6/50 MG Tablet PO SCH ×2 (08:54→22:15)
[2018-03-16] MEDS: Famotidine PF Inj 20 MG/2 ML Vial IV.PUSH SCH ×2 (08:54→22:16)
--- NOTE | 2018-03-16 11:23 | P.PNCC ---
Subjective Brief History: Elderly gentleman found under a ladder and presumably fell off the ladder sometimes with the last 24 hours. Patient was transferred to our institution as priority 1 trauma alert and on arrival patient is [place] coma scale of about 4-5 moving some. Patient was intubated ventilated The patient underwent laboratory and diagnostic workup. After resuscitation, was found to have intracranial hemorrhage with small area of contusion on the right and then a small area of concentrated bleeding in the quadrigeminal plate. No other injuries are noted. The patient has bilateral severe hydronephrosis and parapelvic renal cysts that can be evaluated at a different time. At this point, I am not sure if the patient fell off the ladder and sustained injuries or perhaps he had a stroke in the quadrigeminal area, which is hemorrhagic and then fell off the ladder. Either way, patient is taken care of in the ICU. Appropriate services are consulted. 24 Hour Review/Hospital Course: 03/13 Sedated on small dose of Versed throughout the night which has been discontinued this morning At this point awaiting to see patients reaction to discontinuation of sedation however he is opening his eyes and fluttering eyelids but otherwise no responding to any verbal or tactile stimuli Withdraws to pain [place] Coma Scale about 5E Hemodynamically patient stable Bilateral good breath sounds good PO2 FiO2 gradient on 35% FiO2 assist control mode ventilation Renal function preserved Discuss further with Dr. Marrero and will go ahead with MRI of the brain and based on the findings decide which way to go 03/14 off sedation today-patient's eyes are open, he is not following commands however withdrawing to pain Neuro status clearly improved He remains hemodynamically normal with adequate urine output He is slightly hypertensive, will start him on oral propranolol CT of the neck vessels have been negative-however he may have had bleeding secondary existing aneurysm-we will proceed with a CTA of the head 03/15 On today's exam patient's are not open according to RN he follows commands at times very sluggishly He CTA shows no aneurysm the CT of the head is essentially stable His urine output is marginal is mildly dehydrated so he will receive 1 L of normal saline bolus Patient is on propranolol and clonidine so that will DC clonidine but keep propranolol in case hypertensive will managed with Norvasc, clonidine may potentially contribute to suppress mental status palliative care has been consulted for the goals of care as 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 03/16/2018 Neurologically patient is unchanged Patient is occasionally withdrawing to pain and according to the nurse he followed some commands with upper extremities but I have not seen this Does not open eyes does not track On my exam patient is withdrawing to pain and that is about it [place] Coma Scale therefore is 5 Hemodynamically remained stable Hypertension managed successfully Bilateral breath sounds on AC control ventilation with good PO2 FiO2 gradient Abdomen soft enteral feeds tolerated This patient is 82-year-old and has a very poor prognosis in the face of his injuries and his best case scenario will end up in a halfway bedridden and unable to take care of himself. There is no chance of functional recovery at this time. This is apparently been discussed by case management with his son and he is contemplating withdrawal of care Objective Vital Signs / I&O: Vital Signs 03/15/18 12:00 03/15/18 15:40 03/15/18 16:00 Temperature 100 F H 100.2 F H Pulse Rate 58 L 64 62 Respiratory Rate 25 H 16 29 H Blood Pressure 128/85 144/67 H Pulse Oximetry 98 100 23 L 03/15/18 20:00 03/15/18 21:00 03/16/18 00:00 Temperature 100.2 F H 99.6 F Pulse Rate 60 55 L 52 L Respiratory Rate 16 13 16 Blood Pressure 148/67 H 140/63 Pulse Oximetry 100 100 03/16/18 00:23 03/16/18 03:00 03/16/18 04:00 Temperature 98.9 F Pulse Rate 54 L 56 L Respiratory Rate 16 17 16 Blood Pressure 121/60 Pulse Oximetry 98 100 03/16/18 04:13 03/16/18 09:05 Temperature Pulse Rate 57 L Respiratory Rate 16 16 Blood Pressure Pulse Oximetry 100 98 Intake & Output 03/15/18 03/16/18 03/16/18 18:59 06:59 18:59 Intake Total 1664 / 1664 2473 / 2473 Output Total 500 / 500 400 / 400 Balance 1164 / 1164 2073 / 2073 Weight 80.5 kg Intake: IV 1105 / 1105 1805 / 1805 NS Inj 1,000 ML @ 80 mls/hr IV. 1000 / 1000 700 / 700 CONT .[id number] [facility] Rx#:[id number] NS Inj 1,000 ML @ 999 mls/hr IV 1000 / 1000 .SIG .Q1H1M [facility] Rx#:[id number] Keppra Inj 500 MG In NS Inj 100 105 / 105 105 / 105 ML @ 400 mls/hr IV.SIG Q12H [facility] Rx#:[id number] Tube Feeding 459 / 459 608 / 608 Tube Irrigant 100 / 100 60 / 60 Output: Urine Amount (Catheter) 500 / 500 400 / 400 Indwelling Urethral Catheter 500 / 500 400 / 400 Other: Date of Last Bowel Movement 03/15/18 03/15/18 # Bowel Movements 1 1 Result Diagrams: 03/16/18 03:15 03/16/18 03:15 Disinhibition Score: 14.00 Aggression Score: 14.00 Lability Score: 14.00 Agitated Behavior Total Score: 14 - Exam GENOMICS SCIENTIST: Neurologically patient is unchanged Patient is occasionally withdrawing to pain and according to the nurse he followed some commands with upper extremities but I have not seen this Does not open eyes does not track On my exam patient is withdrawing to pain and that is about it [place] Coma Scale therefore is 5 Hemodynamic/Cardiac: Hemodynamically remained stable Hypertension managed successfully Pulmonary/Respiratory: Bilateral breath sounds on AC control ventilation with good PO2 FiO2 gradient Abdomen/GI Nutrition: Abdomen soft enteral feeds tolerated Renal/I&O: Renal function normal and preserved Assessment and Plan Plan: Continue CPAP without extubation Continue tube feeds Continue mechanical ventilation Continue neuro protection Start DVT prophylaxis Attestation: Critical care time 32 minutes
[2018-03-16] MEDS ORDERED: Potassium Chloride 25 MEQ Effervescent Tablet PO ONE (19:38)
--- NOTE | 2018-03-16 21:30 | XR ---
EXAM DATE: 03/16/2018 9:21 PM EDT AGE/SEX: 82 years / Male INDICATIONS: OG tube placement. CLINICAL DATA: This is the patient's subsequent encounter. Patient reports that signs and symptoms h ave been present for 3 days and indicates a pain score of Nonresponsive. MEDICAL/SURGICAL HISTORY: Non-responsive. Non-responsive. COMPARISON: No prior exams available for comparison. FINDINGS: Tip of the OG tube is in the region of the antrum. There is moderate amount of stool in the colon. CONCLUSION: Tip of the NG tube inside the antrum. Electronically signed by: Zach Braxton MD 03/16/2018 9:29 PM EDT
[2018-03-17] MEDS: Oral Hygiene Kit OROPHARYNG SCH ×2 (04:00)
[2018-03-17] MEDS: Chlorhexidine Gluconate 2% 1 Pack (2 Cloths) TOPICAL SCH (04:00)
[2018-03-17 05:34] LABS: Anion Gap 7 meq/L (5-15); Blood Urea Nitrogen 33 mg/dL (7-18); Calcium 7.4 mg/dL (8.5-10.1); Carbon Dioxide 24.2 meq/L (21.0-32.0); Chloride 117 meq/L (98-107); Glomerular Filtration Rate Greater Than 89 mL/min (>89); Glucose,Random 169 mg/dL (74-106); Potassium 4.3 meq/L (3.5-5.1); Sodium 148 meq/L (136-145)
[2018-03-17 05:50] LABS: Total Protein 4.9 g/dL (6.4-8.2)
[2018-03-17] MEDS: Chlorhexidine 0.12% Oral Kit 15 ML UDC OROPHARYNG SCH ×2 (08:00→21:45)
[2018-03-17 08:15] LABS: Baso % (Auto) 0.2 % (0.0-2.0); Eos # (Auto) 0.1 th/mm3 (0.0-0.4); Hematocrit 35.2 % (39.0-51.0); Hemoglobin 11.9 gm/dL (13.0-17.0); Lymph # (Auto) 0.6 th/mm3 (1.0-4.8); Lymph % (Auto) 10.5 % (9.0-44.0); Mean Corpuscular HGB Conc 33.9 % (32.0-36.0); Mean Corpuscular Hemoglobin 31.5 pg (27.0-34.0); Mean Platelet Volume 9.6 fL (7.0-11.0); Mono # (Auto) 0.8 th/mm3 (0.0-0.9); Mono % (Auto) 12.9 % (0.0-8.0); Neut # (Auto) 4.5 th/mm3 (1.8-7.7); Neut % (Auto) 75.4 % (16.0-70.0); Platelet Count 110 th/mm3 (150-450); Red Blood Count 3.78 mil/mm3 (4.50-5.90); Red Cell Distribution Width 13.3 % (11.6-17.2)
--- NOTE | 2018-03-17 09:27 | P.PNNS ---
Subjective Interval history: No major issues overnight. Exam remains stable but poor. Palliative care team has spoken to family and likely to withdraw care on Sunday if he has not had any further improvement. Physical Exam Vital signs: Vital Signs 03/16/18 12:00 03/16/18 12:28 03/16/18 16:00 Temperature 100.1 F H 99.9 F H Pulse Rate 56 L 52 L Respiratory Rate 16 16 34 H Blood Pressure 137/63 139/65 Pulse Oximetry 100 98 100 03/16/18 17:04 03/16/18 19:23 03/16/18 20:00 Temperature 102.8 F H Pulse Rate 55 L 71 64 Respiratory Rate 16 16 16 Blood Pressure 190/68 H Pulse Oximetry 99 99 100 03/16/18 22:00 03/16/18 23:43 03/17/18 00:00 Temperature 99.2 F Pulse Rate 56 L 50 L Respiratory Rate 16 16 Blood Pressure 149/67 H Pulse Oximetry 100 100 03/17/18 02:00 03/17/18 03:09 03/17/18 04:00 Temperature 97.8 F Pulse Rate 48 L 43 L 40 L Respiratory Rate 16 16 Blood Pressure 165/74 H Pulse Oximetry 100 100 03/17/18 06:00 03/17/18 09:03 Temperature Pulse Rate 38 L 42 L Respiratory Rate 16 Blood Pressure Pulse Oximetry 100 Intake & Output 03/16/18 03/17/18 03/17/18 18:59 06:59 18:59 Intake Total 2047 624 / 624 Output Total 400 / 400 Balance 2047 224 / 224 Weight 80.2 kg Intake: IV 1300 / 1300 NS Inj 1,000 ML @ 999 mls/hr IV 1300 / 1300 .CONT .Q1H1M [facility] Rx#:[id number] Oral 80 / 80 Tube Feeding 608 / 608 624 / 624 Tube Irrigant 60 / 60 Output: Urine Amount (Catheter) 400 / 400 Indwelling Urethral Catheter 400 / 400 Other: Date of Last Bowel Movement 03/15/18 03/17/18 # Bowel Movements 1 - Routine Neurological Exam No eye opening to noxious stim. Pupils equal and reactive. Weak corneals bilaterally. No oculocephalic reflex bilaterally. Positive cough. Flicker withdrawal of the left upper and brief triple flexion of the left lower to noxious stim. No movement on the right side to noxious stim. He has no grimace or vital sign response to painful stimuli. There are some reports from nursing that he has followed commands a few times, but none of the physicians have been able to elicit that and given his current poor exam, I think that is probably unlikely. - Urinary Catheter Management Indwelling Urethral Catheter Cath placed during this visit: yes Reason for continuing: Hourly intake/output Insertion date: 03/13/18 Insertion time: 03:00 Assessment and Plan - Plan Assessment Elderly male TBI Cervical Spine CT 03/12/18 18:24 CONCLUSION: 1. No acute bony injury in the cervical spine. 2. Significant disc disease and degenerative spondylosis with fairly significant suspected canal stenosis in the lower cervical spine as described. Head MRI 03/13/18 00:00 CONCLUSION: 1. Interventricular hemorrhage with dilatation of the ventricles. 2. Subarachnoid hemorrhage. 3. Focal hemorrhage in the posterior right lateral midbrain with surrounding edema. This could be from the presumed fall. An underlying vascular lesion in this region could also be suspected. 4. Mild focal edema in the posterior left cerebellar hemisphere. 5. Suspected subgaleal hemorrhage or edema in the parietal scalp region. Head CT 03/14/18 00:00 CONCLUSION: 1. Persistent intraventricular, subarachnoid and right midbrain hemorrhage. 2. Persistent ventricular dilatation especially of the lateral ventricles. 3. Low density seen throughout the cerebral white matter likely from underlying small vessel ischemic change. Head CTA 03/14/18 00:00 CONCLUSION: 1. No aneurysm. Neck CTA 03/14/18 00:00 CONCLUSION: 1. Patent carotid arteries and vertebral arteries bilaterally. No aneurysm. CT Brain 03/12 There is a small volume of blood in the posterior horns of the lateral ventricles. minimal subarachnoid blood present in the posterior sylvian fissures bilaterally. A small hemorrhage is present in the quadrigeminal plate region asymmetric to the right. No evidence of significant brain shift. Plan: cont checks every hour follow up neuro exam critical care management per trauma team SCDs and TEDs protonix seizure prophylaxis Continue to follow neuro exam, but prognosis extremely poor Family likely to elect withdrawal of care tomorrow, which I feel is a reasonable plan given his poor neurologic status and prognosis
--- NOTE | 2018-03-17 09:56 | P.PNCC ---
Subjective Brief History: Elderly gentleman found under a ladder and presumably fell off the ladder sometimes with the last 24 hours. Patient was transferred to our institution as priority 1 trauma alert and on arrival patient is [place] coma scale of about 4-5 moving some. Patient was intubated ventilated The patient underwent laboratory and diagnostic workup. After resuscitation, was found to have intracranial hemorrhage with small area of contusion on the right and then a small area of concentrated bleeding in the quadrigeminal plate. No other injuries are noted. The patient has bilateral severe hydronephrosis and parapelvic renal cysts that can be evaluated at a different time. At this point, I am not sure if the patient fell off the ladder and sustained injuries or perhaps he had a stroke in the quadrigeminal area, which is hemorrhagic and then fell off the ladder. Either way, patient is taken care of in the ICU. Appropriate services are consulted. 24 Hour Review/Hospital Course: 03/13 Sedated on small dose of Versed throughout the night which has been discontinued this morning At this point awaiting to see patients reaction to discontinuation of sedation however he is opening his eyes and fluttering eyelids but otherwise no responding to any verbal or tactile stimuli Withdraws to pain [place] Coma Scale about 5E Hemodynamically patient stable Bilateral good breath sounds good PO2 FiO2 gradient on 35% FiO2 assist control mode ventilation Renal function preserved Discuss further with Dr. Marrero and will go ahead with MRI of the brain and based on the findings decide which way to go 03/14 off sedation today-patient's eyes are open, he is not following commands however withdrawing to pain Neuro status clearly improved He remains hemodynamically normal with adequate urine output He is slightly hypertensive, will start him on oral propranolol CT of the neck vessels have been negative-however he may have had bleeding secondary existing aneurysm-we will proceed with a CTA of the head 03/15 On today's exam patient's are not open according to RN he follows commands at times very sluggishly He CTA shows no aneurysm the CT of the head is essentially stable His urine output is marginal is mildly dehydrated so he will receive 1 L of normal saline bolus Patient is on propranolol and clonidine so that will DC clonidine but keep propranolol in case hypertensive will managed with Norvasc, clonidine may potentially contribute to suppress mental status palliative care has been consulted for the goals of care as 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 03/16/2018 Neurologically patient is unchanged Patient is occasionally withdrawing to pain and according to the nurse he followed some commands with upper extremities but I have not seen this Does not open eyes does not track On my exam patient is withdrawing to pain and that is about it [place] Coma Scale therefore is 5 Hemodynamically remained stable Hypertension managed successfully Bilateral breath sounds on AC control ventilation with good PO2 FiO2 gradient Abdomen soft enteral feeds tolerated This patient is 82-year-old and has a very poor prognosis in the face of his injuries and his best case scenario will end up in a [facility] bedridden and unable to take care of himself. There is no chance of functional recovery at this time. This is apparently been discussed by case management with his son and he is contemplating withdrawal of care 03/17/2018 No change in neurologic status Patient withdraws to pain a little bit but that is about it does not open eyes does not track or follow commands He is off all the sedation for the last 3 days No chance of functional neurological recovery at this time based on the injury and age Hemodynamically stable although patient had a period of bradycardia. Propranolol removed Blood pressure remained stable if not somewhat hypertensive but will manage without beta-blockers Remains on assist control ventilation bilateral good breath sounds good PO2 FiO2 gradient Clearly in face of neurologic status patient cannot be extubated where he could not protect upper airway Abdomen soft Decision on further care made by the son and he wishes to withdraw care but nothing concrete determined Objective Vital Signs / I&O: Vital Signs 03/16/18 12:00 03/16/18 12:28 03/16/18 16:00 Temperature 100.1 F H 99.9 F H Pulse Rate 56 L 52 L Respiratory Rate 16 16 34 H Blood Pressure 137/63 139/65 Pulse Oximetry 100 98 100 03/16/18 17:04 03/16/18 19:23 03/16/18 20:00 Temperature 102.8 F H Pulse Rate 55 L 71 64 Respiratory Rate 16 16 16 Blood Pressure 190/68 H Pulse Oximetry 99 99 100 03/16/18 22:00 03/16/18 23:43 03/17/18 00:00 Temperature 99.2 F Pulse Rate 56 L 50 L Respiratory Rate 16 16 Blood Pressure 149/67 H Pulse Oximetry 100 100 03/17/18 02:00 03/17/18 03:09 03/17/18 04:00 Temperature 97.8 F Pulse Rate 48 L 43 L 40 L Respiratory Rate 16 16 Blood Pressure 165/74 H Pulse Oximetry 100 100 03/17/18 06:00 03/17/18 09:03 Temperature Pulse Rate 38 L 42 L Respiratory Rate 16 Blood Pressure Pulse Oximetry 100 Intake & Output 03/16/18 03/17/18 03/17/18 18:59 06:59 18:59 Intake Total 2047 624 / 624 Output Total 400 / 400 Balance 2047 224 / 224 Weight 80.2 kg Intake: IV 1300 / 1300 NS Inj 1,000 ML @ 999 mls/hr IV 1300 / 1300 .CONT .[id number] MEGHAN Rx#:[id number] Oral 80 / 80 Tube Feeding 608 / 608 624 / 624 Tube Irrigant 60 / 60 Output: Urine Amount (Catheter) 400 / 400 Indwelling Urethral Catheter 400 / 400 Other: Date of Last Bowel Movement 03/15/18 03/17/18 # Bowel Movements 1 Result Diagrams: 03/17/18 07:15 03/17/18 03:47 Imaging: Impressions Abdomen X-Ray 03/16/18 00:00 CONCLUSION: Tip of the NG tube inside the antrum. Disinhibition Score: 15.75 Aggression Score: 14.00 Lability Score: 14.00 Agitated Behavior Total Score: 15 - Exam BUSHEL GIRL: No change in neurologic status Patient withdraws to pain a little bit but that is about it does not open eyes does not track or follow commands He is off all the sedation for the last 3 days No chance of functional neurological recovery at this time based on the injury and age Hemodynamic/Cardiac: Hemodynamically stable although patient had a period of bradycardia. Propranolol removed Blood pressure remained stable if not somewhat hypertensive but will manage without beta-blockers Pulmonary/Respiratory: Remains on assist control ventilation bilateral good breath sounds good PO2 FiO2 gradient Clearly in face of neurologic status patient cannot be extubated where he could not protect upper airway Abdomen/GI Nutrition: Abdomen soft Renal/I&O: Renal function preserved with good urine output Assessment and Plan Plan: Continue CPAP without extubation Continue tube feeds Continue mechanical ventilation Continue neuro protection Start DVT prophylaxis Attestation: Apparently discussion has been had with the son who wishes to withdraw care but nothing has been concretely determined Will go by the recommendations of palliative care Critical care at 32 minutes
[2018-03-17] MEDS: Senna/Docusate Sodium 8.6/50 MG Tablet PO SCH ×2 (10:26→21:43)
[2018-03-17] MEDS: Famotidine PF Inj 20 MG/2 ML Vial IV.PUSH SCH ×2 (10:26→21:44)
[2018-03-17] MEDS: Heparin - SQ 10,000 UNITS/ML Vial SQ SCH (10:26)
[2018-03-17 18:48] LABS: Baso % (Auto) 0.2 % (0.0-2.0); Eos % (Auto) 0.1 % (0.0-4.0); Hematocrit 31.9 % (39.0-51.0); Hemoglobin 10.9 gm/dL (13.0-17.0); Lymph # (Auto) 0.3 th/mm3 (1.0-4.8); Lymph % (Auto) 3.1 % (9.0-44.0); Mean Corpuscular HGB Conc 34.1 % (32.0-36.0); Mean Corpuscular Hemoglobin 31.6 pg (27.0-34.0); Mean Corpuscular Volume 92.6 fL (80.0-100.0); Mean Platelet Volume 9.3 fL (7.0-11.0); Mono # (Auto) 0.6 th/mm3 (0.0-0.9); Mono % (Auto) 5.8 % (0.0-8.0); Neut # (Auto) 8.7 th/mm3 (1.8-7.7); Neut % (Auto) 90.8 % (16.0-70.0); Platelet Count 131 th/mm3 (150-450); Red Blood Count 3.45 mil/mm3 (4.50-5.90); Red Cell Distribution Width 13.8 % (11.6-17.2); White Blood Count 9.6 th/mm3 (4.0-11.0)
[2018-03-17 19:12] LABS: Activated Partial Thrombo Time 26.4 sec (24.3-30.1); INR 1.1 Ratio
[2018-03-17] MEDS: Sod Chloride 0.9% Inj 1,000 ML IV.CONT SCH ×2 (20:47→21:45)
--- NOTE | 2018-03-18 07:06 | P.PNCC ---
Subjective Brief History: Elderly gentleman found under a ladder and presumably fell off the ladder sometimes with the last 24 hours. Patient was transferred to our institution as priority 1 trauma alert and on arrival patient is [place] coma scale of about 4-5 moving some. Patient was intubated ventilated The patient underwent laboratory and diagnostic workup. After resuscitation, was found to have intracranial hemorrhage with small area of contusion on the right and then a small area of concentrated bleeding in the quadrigeminal plate. No other injuries are noted. The patient has bilateral severe hydronephrosis and parapelvic renal cysts that can be evaluated at a different time. At this point, I am not sure if the patient fell off the ladder and sustained injuries or perhaps he had a stroke in the quadrigeminal area, which is hemorrhagic and then fell off the ladder. Either way, patient is taken care of in the ICU. Appropriate services are consulted. 24 Hour Review/Hospital Course: 03/13 Sedated on small dose of Versed throughout the night which has been discontinued this morning At this point awaiting to see patients reaction to discontinuation of sedation however he is opening his eyes and fluttering eyelids but otherwise no responding to any verbal or tactile stimuli Withdraws to pain [place] Coma Scale about 5E Hemodynamically patient stable Bilateral good breath sounds good PO2 FiO2 gradient on 35% FiO2 assist control mode ventilation Renal function preserved Discuss further with Dr. Marrero and will go ahead with MRI of the brain and based on the findings decide which way to go 03/14 off sedation today-patient's eyes are open, he is not following commands however withdrawing to pain Neuro status clearly improved He remains hemodynamically normal with adequate urine output He is slightly hypertensive, will start him on oral propranolol CT of the neck vessels have been negative-however he may have had bleeding secondary existing aneurysm-we will proceed with a CTA of the head 03/15 On today's exam patient's are not open according to RN he follows commands at times very sluggishly He CTA shows no aneurysm the CT of the head is essentially stable His urine output is marginal is mildly dehydrated so he will receive 1 L of normal saline bolus Patient is on propranolol and clonidine so that will DC clonidine but keep propranolol in case hypertensive will managed with Norvasc, clonidine may potentially contribute to suppress mental status palliative care has been consulted for the goals of care as 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 03/16/2018 Neurologically patient is unchanged Patient is occasionally withdrawing to pain and according to the nurse he followed some commands with upper extremities but I have not seen this Does not open eyes does not track On my exam patient is withdrawing to pain and that is about it [place] Coma Scale therefore is 5 Hemodynamically remained stable Hypertension managed successfully Bilateral breath sounds on AC control ventilation with good PO2 FiO2 gradient Abdomen soft enteral feeds tolerated This patient is 82-year-old and has a very poor prognosis in the face of his injuries and his best case scenario will end up in a longterm bedridden and unable to take care of himself. There is no chance of functional recovery at this time. This is apparently been discussed by case management with his son and he is contemplating withdrawal of care 03/17/2018 No change in neurologic status Patient withdraws to pain a little bit but that is about it does not open eyes does not track or follow commands He is off all the sedation for the last 3 days No chance of functional neurological recovery at this time based on the injury and age Hemodynamically stable although patient had a period of bradycardia. 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 Hemodynamically stable Bilateral breath sounds remains on assist control ventilation with good PO2 FiO2 gradient Abdomen is soft hypoactive bowel sounds Yesterday afternoon patient had some clots and bright red blood per rectum and feedings have been stopped His most likely diverticular bleed yet patient may have unrecognized other pathology in the known to us Gastroenterology consulted to evaluate the patient Hemoglobin and coagulation studies remain stable Objective Vital Signs / I&O: Vital Signs 03/17/18 08:00 03/17/18 09:03 03/17/18 10:00 Temperature 98.7 F Pulse Rate 40 L 42 L 58 L Respiratory Rate 31 H 16 Blood Pressure 145/64 H Pulse Oximetry 100 100 03/17/18 12:00 03/17/18 12:32 03/17/18 14:00 Temperature 98.6 F Pulse Rate 96 H 72 Respiratory Rate 35 H 20 Blood Pressure 146/92 H Pulse Oximetry 100 100 03/17/18 16:00 03/17/18 16:26 03/17/18 18:00 Temperature 99.0 F Pulse Rate 72 62 Respiratory Rate 17 16 Blood Pressure 101/55 L Pulse Oximetry 100 100 03/17/18 20:00 03/17/18 20:38 03/17/18 22:00 Temperature 99.7 F H Pulse Rate 62 58 L Respiratory Rate 16 16 Blood Pressure 102/60 Pulse Oximetry 100 94 L 03/17/18 23:35 03/18/18 00:00 03/18/18 02:00 Temperature 100.8 F H Pulse Rate 103 H 96 H Respiratory Rate 23 25 H Blood Pressure 160/73 H Pulse Oximetry 92 L 95 03/18/18 04:00 Temperature Pulse Rate 92 H Respiratory Rate 17 Blood Pressure Pulse Oximetry 99 Intake & Output 03/17/18 03/18/18 03/18/18 18:59 06:59 18:59 Intake Total 580 / 580 1000 / 1000 Output Total 600 / 600 Balance -20 / -20 1000 / 1000 Intake: IV 1000 / 1000 NS Inj 1,000 ML @ 80 mls/hr IV. 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 Hemodynamically stable Hemodynamic/Cardiac: Hemodynamically stable despite rectal bleeding Pulmonary/Respiratory: Bilateral breath sounds remains on assist control ventilation with good PO2 FiO2 gradient Abdomen/GI Nutrition: Abdomen is soft hypoactive bowel sounds Yesterday afternoon patient had some clots and bright red blood per rectum and feedings have been stopped His most likely diverticular bleed yet patient may have unrecognized other pathology in the known to us Gastroenterology consulted to evaluate the patient Hemoglobin and coagulation studies remain stable Renal/I&O: Renal function preserved Assessment and Plan Plan: Continue CPAP without extubation Continue tube feeds Continue mechanical ventilation Continue neuro protection Start DVT prophylaxis Attestation: Critical care time 32 minutes Palliative care is having discussion with family regarding withdrawal of care face of dismal prognosis
[2018-03-18] MEDS: Famotidine PF Inj 20 MG/2 ML Vial IV.PUSH SCH ×2 (08:43→21:50)
[2018-03-18] MEDS: Senna/Docusate Sodium 8.6/50 MG Tablet PO SCH ×2 (08:44→21:50)
[2018-03-18] MEDS: Chlorhexidine 0.12% Oral Kit 15 ML UDC OROPHARYNG SCH ×2 (08:44→21:50)
--- NOTE | 2018-03-18 09:06 | P.PNNS ---
Subjective Interval history: 03/18: remains intubated, no sedation. no overall neurological improvements. Physical Exam Vital signs: Vital Signs 03/17/18 10:00 03/17/18 12:00 03/17/18 12:32 Temperature 98.6 F Pulse Rate 58 L 96 H Respiratory Rate 35 H 20 Blood Pressure 146/92 H Pulse Oximetry 100 100 03/17/18 14:00 03/17/18 16:00 03/17/18 16:26 Temperature 99.0 F Pulse Rate 72 72 Respiratory Rate 17 16 Blood Pressure 101/55 L Pulse Oximetry 100 100 03/17/18 18:00 03/17/18 20:00 03/17/18 20:38 Temperature 99.7 F H Pulse Rate 62 62 Respiratory Rate 16 16 Blood Pressure 102/60 Pulse Oximetry 100 94 L 03/17/18 22:00 03/17/18 23:35 03/18/18 00:00 Temperature 100.8 F H Pulse Rate 58 L 103 H Respiratory Rate 23 25 H Blood Pressure 160/73 H Pulse Oximetry 92 L 95 03/18/18 02:00 03/18/18 04:00 03/18/18 06:00 Temperature 102.3 F H Pulse Rate 96 H 92 H 92 H Respiratory Rate 27 H Blood Pressure 128/54 L Pulse Oximetry 98 03/18/18 08:09 Temperature Pulse Rate Respiratory Rate 16 Blood Pressure Pulse Oximetry 97 Intake & Output 03/17/18 03/18/18 03/18/18 18:59 06:59 18:59 Intake Total 580 / 580 1000 / 1000 Output Total 600 / 600 400 / 400 Balance -20 / -20 600 / 600 Weight 78 kg Intake: IV 1000 / 1000 NS Inj 1,000 ML @ 80 mls/hr IV. 1000 / 1000 CONT .[id number] MEGHAN Rx#:[id number] Tube Feeding 550 / 550 Tube Irrigant 30 / 30 Output: Urine Amount (Catheter) 600 / 600 400 / 400 Indwelling Urethral Catheter 600 / 600 400 / 400 Other: Date of Last Bowel Movement 03/17/18 03/18/18 # Bowel Movements 1 1 Narrative: GENERAL: Elderly male. Intubated. No sedative drips. SKIN: Warm and dry. HEAD: Normocephalic. EYES: No scleral icterus. No injection or drainage. NECK: Supple, trachea midline. No JVD or lymphadenopathy. CARDIOVASCULAR: Regular rate and rhythm RESPIRATORY: mechanically ventilated. GASTROINTESTINAL: Abdomen soft, non-tender, nondistended. MUSCULOSKELETAL: No cyanosis, or edema. Neuro: No eye opening. pupils 2 mm bilaterally. Conjugate gaze. Did not follow commands. minimal flexion response to LE's to noxious stimuli. - Urinary Catheter Management Indwelling Urethral Catheter Cath placed during this visit: yes Reason for continuing: Terminally ill/Comfort care Insertion date: 03/13/18 Insertion time: 03:00 Assessment and Plan - Plan Assessment Elderly male TBI Cervical Spine CT 03/12/18 18:24 CONCLUSION: 1. No acute bony injury in the cervical spine. 2. Significant disc disease and degenerative spondylosis with fairly significant suspected canal stenosis in the lower cervical spine as described. Head MRI 03/13/18 00:00 CONCLUSION: 1. Interventricular hemorrhage with dilatation of the ventricles. 2. Subarachnoid hemorrhage. 3. Focal hemorrhage in the posterior right lateral midbrain with surrounding edema. This could be from the presumed fall. An underlying vascular lesion in this region could also be suspected. 4. Mild focal edema in the posterior left cerebellar hemisphere. 5. Suspected subgaleal hemorrhage or edema in the parietal scalp region. Head CT 03/14/18 00:00 CONCLUSION: 1. Persistent intraventricular, subarachnoid and right midbrain hemorrhage. 2. Persistent ventricular dilatation especially of the lateral ventricles. 3. Low density seen throughout the cerebral white matter likely from underlying small vessel ischemic change. Head CTA 03/14/18 00:00 CONCLUSION: 1. No aneurysm. Neck CTA 03/14/18 00:00 CONCLUSION: 1. Patent carotid arteries and vertebral arteries bilaterally. No aneurysm. CT Brain 03/12 There is a small volume of blood in the posterior horns of the lateral ventricles. minimal subarachnoid blood present in the posterior sylvian fissures bilaterally. A small hemorrhage is present in the quadrigeminal plate region asymmetric to the right. No evidence of significant brain shift. Plan: cont checks every hour cont critical care management per trauma team SCDs and TEDs protonix seizure prophylaxis continue to follow neuro exam palliative care following
[2018-03-18] MEDS: Oral Hygiene Kit OROPHARYNG SCH ×5 (10:35→18:39)
[2018-03-18] MEDS: Sod Chloride 0.9% Inj 1,000 ML IV.CONT SCH (10:36)
--- NOTE | 2018-03-18 11:31 | P.CONGI ---
History of Present Illness Consult date: 03/18/18 Consult reason: Rectal bleeding Chief complaint: TBI, Coma History of Present Illness: This is a 82-year-old unfortunate male who was admitted to the hospital on 2017 status post trauma. Patient remains in the intensive care setting on ventilator management and severe head trauma. Approximately 24 hours ago patient' was noted to have some bright red rectal bleeding with clots which was a new finding. Current hemoglobin remained stable at 10.9, PT/INR 1.1. Admission hemoglobin was 13.9. Patient initially was on tube feeds with an orogastric tube but has been placed to suction and bilious fluid is noted without any obvious blood. Patient was on heparin subcu but is currently being failed. Gastroenterology has been consulted to assist with these symptoms and findings of bright red rectal bleeding. Currently there is no further blood noted this a.m. on 03/18/2018. 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 Light smoker per his son.) Tobacco Type: Cigarettes - Alcohol History How Often Do You Have a Drink Containing Alcohol: Never - Substance Use History Substance History: No History of Abuse, Unable to Obtain - Travel History History of Recent Travel: No Recent Travel in the [place] Within the Last 8 Weeks: No Recent Travel Out of the Country Within the Last 8 Weeks: No - Immunization History Tetanus Immunization: Unable to Assess Hx Influenza Vaccine This Season: Unable to Assess <Loreta Luu - Last Filed: 03/18/18 11:31> - Medical History Medical History: Medical History (Last Reviewed 03/18/18 @ 10:04 by Melissa Taylor) Medical history unknown Surgical history unknown <Raf Tapia - Last Filed: 03/18/18 22:50> Medications and Allergies Active Medications: Active Medications Al Hydroxide/Mg Hydroxide (Milk Of Magnesia Liq) 30 ml PO Q12H PRN PRN Reason: Mild Constipation Albuterol (Duoneb Neb (Prn)) 1 ampul NEB Q2HR NEB PRN PRN Reason: SHORTNESS OF BREATH Bacitracin (Baciguent Oint) 1 applicatio TOPICAL BID [facility] Last Admin: 03/18/18 10:35 Dose: 1 applicatio Bisacodyl (Dulcolax Supp) 10 mg RECTAL DAILY PRN PRN Reason: SEVERE CONSITIPATION Chlorhexidine Gluconate (Peridex 0.12% Oral Kit) 15 ml OROPHARYNG BID@0800, 2000 [facility] Last Admin: 03/18/18 08:44 Dose: 15 ml Famotidine (Pepcid Pf Inj) 20 mg IV.PUSH Q12HR [facility] Last Admin: 03/18/18 08:43 Dose: 20 mg Fentanyl Citrate (Fentanyl Inj) 50 mcg IV.PUSH Q1H PRN PRN Reason: PAIN SCALE 1 TO 10 Last Admin: 03/14/18 20:47 Dose: 50 mcg Heparin Sodium (Porcine) (Heparin Inj) 5,000 units SQ Q12HR [facility] Last Admin: 03/17/18 10:26 Dose: 5,000 units Acetaminophen (Ofirmev Inj) 1,000 mg in 100 mls @ 400 mls/hr IV.SIG Q6H PRN PRN Reason: FEVER > 101 F Last Infusion: 03/16/18 23:18 Dose: Infused Sodium Chloride (Ns Inj) 1,000 mls @ 80 mls/hr IV.CONT .[id number] [facility] Last Admin: 03/18/18 10:36 Dose: Not Given Lactulose (Lactulose Liq) 30 ml PO DAILY PRN PRN Reason: SEVERE CONSITIPATION Naloxone HCl (Narcan Inj) 0.4 mg IV.PUSH Q3M PRN PRN Reason: RESPIRATORY RATE LESS THAN 10 Ondansetron HCl (Zofran Inj) 4 mg IV.PUSH Q6H PRN PRN Reason: NAUSEA OR VOMITING Propranolol HCl (Inderal) 20 mg PO Q8HR [facility] Last Admin: 03/17/18 08:00 Dose: Not Given Senna/Docusate Sodium (Aparna-Colace) 1 tab PO BID [facility] Last Admin: 03/18/18 08:44 Dose: Not Given Sennosides (Senokot) 17.2 mg PO Q12H PRN PRN Reason: Moderate Constipation Sodium Chloride (Ns Flush) 2 ml IV.FLUSH BID [facility] Last Admin: 03/18/18 08:44 Dose: 2 ml Sodium Chloride (Ns Flush) 2 ml IV.FLUSH PRN PRN PRN Reason: FLUSH AFTER USING IV ACCESS <Loreta Luu M - Last Filed: 03/18/18 11:31> Active Medications: Active Medications Al Hydroxide/Mg Hydroxide (Milk Of Magnesia Liq) 30 ml PO Q12H PRN PRN Reason: Mild Constipation Albuterol (Duoneb Neb (Prn)) 1 ampul NEB Q2HR NEB PRN PRN Reason: SHORTNESS OF BREATH Bacitracin (Baciguent Oint) 1 applicatio TOPICAL BID [facility] Last Admin: 03/18/18 21:50 Dose: 1 applicatio Bisacodyl (Dulcolax Supp) 10 mg RECTAL DAILY PRN PRN Reason: SEVERE CONSITIPATION Chlorhexidine Gluconate (Peridex 0.12% Oral Kit) 15 ml OROPHARYNG BID@0800, 2000 [facility] Last Admin: 03/18/18 21:50 Dose: 15 ml Famotidine (Pepcid Pf Inj) 20 mg IV.PUSH Q12HR [facility] Last Admin: 03/18/18 21:50 Dose: 20 mg Fentanyl Citrate (Fentanyl Inj) 50 mcg IV.PUSH Q1H PRN PRN Reason: PAIN SCALE 1 TO 10 Last Admin: 03/14/18 20:47 Dose: 50 mcg Heparin Sodium (Porcine) (Heparin Inj) 5,000 units SQ Q12HR [facility] Last Admin: 03/17/18 10:26 Dose: 5,000 units Acetaminophen (Ofirmev Inj) 1,000 mg in 100 mls @ 400 mls/hr IV.SIG Q6H PRN PRN Reason: FEVER > 101 F Last Infusion: 03/16/18 23:18 Dose: Infused Sodium Chloride (Ns Inj) 1,000 mls @ 80 mls/hr IV.CONT .[id number] [facility] Last Admin: 03/18/18 10:36 Dose: Not Given Lactulose (Lactulose Liq) 30 ml PO DAILY PRN PRN Reason: SEVERE CONSITIPATION Naloxone HCl (Narcan Inj) 0.4 mg IV.PUSH Q3M PRN PRN Reason: RESPIRATORY RATE LESS THAN 10 Ondansetron HCl (Zofran Inj) 4 mg IV.PUSH Q6H PRN PRN Reason: NAUSEA OR VOMITING Propranolol HCl (Inderal) 20 mg PO Q8HR [facility] Last Admin: 03/17/18 08:00 Dose: Not Given Senna/Docusate Sodium (Aparna-Colace) 1 tab PO BID [facility] Last Admin: 03/18/18 21:50 Dose: 1 tab Sennosides (Senokot) 17.2 mg PO Q12H PRN PRN Reason: Moderate Constipation Sodium Chloride (Ns Flush) 2 ml IV.FLUSH BID [facility] Last Admin: 03/18/18 21:50 Dose: 2 ml Sodium Chloride (Ns Flush) 2 ml IV.FLUSH PRN PRN PRN Reason: FLUSH AFTER USING IV ACCESS <Raf Tapia A - Last Filed: 03/18/18 22:50> Allergies Allergy/AdvReac Type Severity Reaction Status Date / Time No Allergy Information Allergy Unverified 03/12/18 18:17 Available Home Medications Medication Instructions Recorded Confirmed Type Unable to Obtain Home Meds 03/12/18 03/12/18 History Exam Vital signs: Vital Signs 03/17/18 12:00 03/17/18 12:32 03/17/18 14:00 Temperature 98.6 F Pulse Rate 96 H 72 Respiratory Rate 35 H 20 Blood Pressure 146/92 H Pulse Oximetry 100 100 03/17/18 16:00 03/17/18 16:26 03/17/18 18:00 Temperature 99.0 F Pulse Rate 72 62 Respiratory Rate 17 16 Blood Pressure 101/55 L Pulse Oximetry 100 100 03/17/18 20:00 03/17/18 20:38 03/17/18 22:00 Temperature 99.7 F H Pulse Rate 62 58 L Respiratory Rate 16 16 Blood Pressure 102/60 Pulse Oximetry 100 94 L 03/17/18 23:35 03/18/18 00:00 03/18/18 02:00 Temperature 100.8 F H Pulse Rate 103 H 96 H Respiratory Rate 23 25 H Blood Pressure 160/73 H Pulse Oximetry 92 L 95 03/18/18 04:00 03/18/18 06:00 03/18/18 08:00 Temperature 102.3 F H 98.9 F Pulse Rate 92 H 92 H 82 Respiratory Rate 27 H 22 Blood Pressure 128/54 L 115/63 Pulse Oximetry 98 98 03/18/18 08:09 03/18/18 10:00 Temperature Pulse Rate 83 Respiratory Rate 16 Blood Pressure Pulse Oximetry 97 Intake & Output 03/17/18 03/18/18 03/18/18 18:59 06:59 18:59 Intake Total 580 / 580 1000 / 1000 Output Total 600 / 600 400 / 400 Balance -20 / -20 600 / 600 Weight 78 kg Intake: IV 1000 / 1000 NS Inj 1,000 ML @ 80 mls/hr IV. 1000 / 1000 CONT .[id number] [facility] Rx#:[id number] Tube Feeding 550 / 550 Tube Irrigant 30 / 30 Output: Urine Amount (Catheter) 600 / 600 400 / 400 Indwelling Urethral Catheter 600 / 600 400 / 400 Other: Date of Last Bowel Movement 03/17/18 03/18/18 03/18/18 # Bowel Movements 1 1 - Constitutional no acute distress (Oral gastric tube connected to low intermittent suction and ventilator management) - Routine HEENT Exam ENT: Present: mucous membranes moist - Routine Respiratory Exam Present: accessory muscle use (Ventilator management) - Routine Abdominal Exam Present: soft (Positive bowel sounds, soft) <Loreta Luu - Last Filed: 03/18/18 11:31> Vital signs: Vital Signs 03/17/18 23:35 03/18/18 00:00 03/18/18 02:00 Temperature 100.8 F H Pulse Rate 103 H 96 H Respiratory Rate 23 25 H Blood Pressure 160/73 H Pulse Oximetry 92 L 95 03/18/18 04:00 03/18/18 06:00 03/18/18 08:00 Temperature 102.3 F H 98.9 F Pulse Rate 92 H 92 H 82 Respiratory Rate 27 H 22 Blood Pressure 128/54 L 115/63 Pulse Oximetry 98 98 03/18/18 08:09 03/18/18 10:00 03/18/18 11:55 Temperature Pulse Rate 83 Respiratory Rate 16 21 Blood Pressure Pulse Oximetry 97 98 03/18/18 12:00 03/18/18 14:00 03/18/18 16:00 Temperature 98.6 F 98.8 F Pulse Rate 84 79 74 Respiratory Rate 22 16 Blood Pressure 116/64 130/60 Pulse Oximetry 97 100 03/18/18 16:07 03/18/18 18:00 03/18/18 19:49 Temperature Pulse Rate 76 Respiratory Rate 16 16 Blood Pressure Pulse Oximetry 100 99 03/18/18 20:00 03/18/18 22:00 Temperature 99.1 F Pulse Rate 76 76 Respiratory Rate 16 Blood Pressure 118/69 Pulse Oximetry 100 Intake & Output 03/18/18 03/18/18 03/19/18 06:59 18:59 06:59 Intake Total 1000 / 1000 0 / 0 Output Total 400 / 400 1000 / 1000 Balance 600 / 600 -1000 / -1000 Weight 78 kg Intake: IV 1000 / 1000 NS Inj 1,000 ML @ 80 mls/hr IV. 1000 / 1000 CONT .[id number] [facility] Rx#:[id number] Tube Feeding 0 / 0 Tube Irrigant 0 / 0 Output: Urine Amount (Catheter) 400 / 400 400 / 400 Indwelling Urethral Catheter 400 / 400 400 / 400 Gastric Drainage 600 / 600 Orogastric Tube 600 / 600 Other: Date of Last Bowel Movement 03/18/18 03/18/18 03/18/18 # Bowel Movements 1 1 <Raf Tapia A - Last Filed: 03/18/18 22:50> Results - Labs CBC & Chem 7: 03/17/18 18:37 03/17/18 03:47 Labs: Laboratory Results - last 24 hr 03/17/18 03/17/18 03/17/18 18:37 18:37 18:37 WBC 9.6 D RBC 3.45 L Hgb 10.9 L Hct 31.9 L MCV 92.6 MCH 31.6 MCHC 34.1 RDW 13.8 Plt Count 131 L MPV 9.3 Neut % (Auto) 90.8 H Lymph % (Auto) 3.1 L Hart % (Auto) 5.8 Eos % (Auto) 0.1 Baso % (Auto) 0.2 Neut # (Auto) 8.7 H Lymph # (Auto) 0.3 L Hart # (Auto) 0.6 Eos # (Auto) 0.0 Baso # (Auto) 0.0 WBC Differential . Differential Comment Auto diff final PT 11.0 INR 1.1 APTT Cancelled 26.4 <Loreta Luu - Last Filed: 03/18/18 11:31> - Labs CBC & Chem 7: 03/17/18 18:37 03/17/18 03:47 <Raf Tapia - Last Filed: 03/18/18 22:50> Assessment and Plan (1) Rectal bleeding Status: Acute Code(s): K62.5 - Hemorrhage of anus and rectum - Plan 82-year-old male currently in the intensive care setting since 03/12/2018 post trauma. Patient is intubated and has oral NG tube now connected to low intermittent suction. There is bilious fluid being obtained but no obvious blood. Junior catheter shows orange clear urine and IV fluids are at 80 cc an hour Palliative care has a meeting set up according to the staff and record today to discuss further options as patient has severe brain injury and no chance of meaningful recovery according to the record. Rectal bleeding, first known event this admission which could be related to hemorrhoid versus diverticular bleed since blood was red. Patient had been on heparin subcu which is now being held. Within the past 8 hours there is been no obvious rectal bleeding noted. Gastroenterology has been consulted to assist with any appropriate needs and plan of care. Plan N.p.o. Maintain hold on heparin subcu Will observe for any further rectal bleeding, no plan procedures for now Monitor for bowel regimen and any constipation Supportive care as needed and further recommendations to follow after palliative care meeting Patient was seen per myself and Dr. Tapia, note was written on his behalf <Loreta Luu - Last Filed: 03/18/18 11:31> (1) Rectal bleeding Status: Acute Code(s): K62.5 - Hemorrhage of anus and rectum - Attending Attestation As above, will monitor for the next few days. Thank you for the consult. <Raf Tapia - Last Filed: 03/18/18 22:50>
--- NOTE | 2018-03-18 12:59 | P.PNPAL ---
Reason for Visit Reason for visit: a. To assist with evaluation and management of symptoms including: Encephalopathy, pain b. To assist medical decision maker(s) with: better understanding of current medical conditions; weighing benefits/burdens of medical treatment options; making medical treatment decisions. Subjective Subjective/Interval History: Patient visit today is medically necessary for evaluation of symptom management of encephalopathy and pain and goals of medical treatment. He remains encephalopathic. He withdraws minimally from noxious stimuli on the left, not on the right, but does not respond to commands. Had MRI done 03/13 notes intraventricular hemorrhage with dilation of the ventricles, subarachnoid hemorrhage, focal hemorrhage in the posterior lateral midbrain and surrounding, presumably from the fall. Mild focal edema in the posterior left cerebellar hemisphere and suspected subgaleal hemorrhage or edema in the parietal scalp region. Neurosurgery and the trauma team note that this is a severe brain injury with no chance of meaningful recovery. He is post trauma day 7, post intubation day 6. He withdraws from painful stimuli but is unable to communicate his needs. He also developed some bright red blood per rectum with clots and was evaluated by GI. Patient is unable to quantify or qualify his discomfort. He remains intubated with invasive line, bedbound, all of which increases risk for pain. . Family/Friend Interactions: I spoke with his son, Americo, today who states that after consideration over the weekend he and his have decided to come to [place] to see the patient prior to determining whether or not to withdraw life support. He states they should arrive afternoon. At this time he is not comfortable making that decision until he sees his father. Palliative care continues to provide support and medical updates as requested by the family. Family expresses appreciation for palliative care support and input. . Objective Vital Signs: Vital Signs 03/17/18 12:32 03/17/18 14:00 03/17/18 16:00 Temperature 99.0 F Pulse Rate 72 72 Respiratory Rate 20 17 Blood Pressure 101/55 L Pulse Oximetry 100 100 03/17/18 16:26 03/17/18 18:00 03/17/18 20:00 Temperature 99.7 F H Pulse Rate 62 62 Respiratory Rate 16 16 Blood Pressure 102/60 Pulse Oximetry 100 100 03/17/18 20:38 03/17/18 22:00 03/17/18 23:35 Temperature Pulse Rate 58 L Respiratory Rate 16 23 Blood Pressure Pulse Oximetry 94 L 92 L 03/18/18 00:00 03/18/18 02:00 03/18/18 04:00 Temperature 100.8 F H 102.3 F H Pulse Rate 103 H 96 H 92 H Respiratory Rate 25 H 27 H Blood Pressure 160/73 H 128/54 L Pulse Oximetry 95 98 03/18/18 06:00 03/18/18 08:00 03/18/18 08:09 Temperature 98.9 F Pulse Rate 92 H 82 Respiratory Rate 22 16 Blood Pressure 115/63 Pulse Oximetry 98 97 03/18/18 10:00 03/18/18 11:55 03/18/18 12:00 Temperature 98.6 F Pulse Rate 83 84 Respiratory Rate 21 22 Blood Pressure 116/64 Pulse Oximetry 98 97 Intake & Output 03/17/18 03/18/18 03/18/18 18:59 06:59 18:59 Intake Total 580 / 580 1000 / 1000 Output Total 600 / 600 400 / 400 Balance -20 / -20 600 / 600 Weight 171 lb 15.369 oz Intake: IV 1000 / 1000 NS Inj 1,000 ML @ 80 mls/hr IV. 1000 / 1000 CONT .[id number] [facility] Rx#:[id number] Tube Feeding 550 / 550 Tube Irrigant 30 / 30 Output: Urine Amount (Catheter) 600 / 600 400 / 400 Indwelling Urethral Catheter 600 / 600 400 / 400 Other: Date of Last Bowel Movement 03/17/18 03/18/18 03/18/18 # Bowel Movements 1 1 Physical Exam: CONSTITUTIONAL/GENERAL: This is an adequately nourished patient, intubated, not sedated, in no apparent distress. TUBES/LINES/DRAINS: PIV bilateral wrists, right ACF. SKIN: No jaundice, rashes, or lesions. No wounds seen anteriorly. Skin temperature appropriate. Not diaphoretic. HEAD: Small posterior head wound. Normocephalic. EYES: Pupils equal and round and reactive. No scleral icterus. No injection or drainage. Fundi not examined. ENT: Nose without bleeding or purulent drainage. Orally intubated. NECK: Trachea midline. Supple, No palpable thyroid enlargement or nodularity. CARDIOVASCULAR: Regular rate and rhythm without murmurs, gallops, or rubs. No JVD. Peripheral pulses symmetric. RESPIRATORY/CHEST: Symmetric, unlabored respirations. Clear to auscultation. Breath sounds equal bilaterally. No wheezes, rales, or rhonchi. GASTROINTESTINAL: Abdomen soft, nondistended. NG tube to low intermittent wall suction, bowel sounds present. GENITOURINARY: Without palpable bladder distension. Junior catheter in place. MUSCULOSKELETAL: Extremities without clubbing, cyanosis, or edema. No effusion noted. No mottling or clubbing. NEUROLOGICAL: Obtunded, minimally responding to painful stimuli, on left side only. Positive plantar flexion, spontaneous movement reported, not focusing or tracking when eyes manually opened. No gag reflex with ET tube manipulation. No response to vigorous sternal rub. PSYCHIATRIC: Obtunded. . Diagnostic Tests Laboratory: Laboratory Results - last 72 hr 03/16/18 03/16/18 03/17/18 03:15 03:15 03:47 WBC 6.1 RBC 3.84 L Hgb 12.2 L Hct 36.0 L MCV 93.8 MCH 31.9 MCHC 34.0 RDW 13.3 Plt Count 125 L MPV 9.2 Neut % (Auto) 73.8 H Lymph % (Auto) 9.8 Knox % (Auto) 16.1 H Eos % (Auto) 0.1 Baso % (Auto) 0.2 Neut # (Auto) 4.5 Lymph # (Auto) 0.6 L Knox # (Auto) 1.0 H Eos # (Auto) 0.0 Baso # (Auto) 0.0 WBC Differential . Differential Comment Auto diff final PT INR APTT Sodium 148 H 148 H Potassium 3.5 4.3 D Chloride 112 H 117 H Carbon Dioxide 25.1 24.2 Anion Gap 11 7 BUN 29 H 33 H Creatinine 0.91 0.81 Estimated GFR 80 L Greater than 89 Random Glucose 177 H 169 H Calcium 7.4 L* 7.4 L* Prot Corrected Calcium 8.3 L 8.6 Total Protein 5.4 L 4.9 L 03/17/18 03/17/18 03/17/18 07:15 18:37 18:37 WBC 6.0 9.6 D RBC 3.78 L 3.45 L Hgb 11.9 L 10.9 L Hct 35.2 L 31.9 L MCV 93.0 92.6 MCH 31.5 31.6 MCHC 33.9 34.1 RDW 13.3 13.8 Plt Count 110 L 131 L MPV 9.6 9.3 Neut % (Auto) 75.4 H 90.8 H Lymph % (Auto) 10.5 3.1 L Knox % (Auto) 12.9 H 5.8 Eos % (Auto) 1.0 0.1 Baso % (Auto) 0.2 0.2 Neut # (Auto) 4.5 8.7 H Lymph # (Auto) 0.6 L 0.3 L Knox # (Auto) 0.8 0.6 Eos # (Auto) 0.1 0.0 Baso # (Auto) 0.0 0.0 WBC Differential . . Differential Comment Auto diff final Auto diff final PT INR APTT Cancelled Sodium Potassium Chloride Carbon Dioxide Anion Gap BUN Creatinine Estimated GFR Random Glucose Calcium Prot Corrected Calcium Total Protein 03/17/18 18:37 WBC RBC Hgb Hct MCV MCH MCHC RDW Plt Count MPV Neut % (Auto) Lymph % (Auto) Knox % (Auto) Eos % (Auto) Baso % (Auto) Neut # (Auto) Lymph # (Auto) Knox # (Auto) Eos # (Auto) Baso # (Auto) WBC Differential Differential Comment PT 11.0 INR 1.1 APTT 26.4 Sodium Potassium Chloride Carbon Dioxide Anion Gap BUN Creatinine Estimated GFR Random Glucose Calcium Prot Corrected Calcium Total Protein Result Diagrams: 03/17/18 18:37 03/17/18 03:47 Imaging: Chest X-Ray 03/12/18 18:18 CONCLUSION: 1. No acute intrathoracic trauma. 2. Endotracheal tube in good position 4 cm above the yaritza. Pelvis X-Ray 03/12/18 18:18 CONCLUSION: Satisfactory trauma pelvis appearance Abdomen/Pelvis CT 03/12/18 18:23 CONCLUSION: 1. No acute injury in the abdomen or pelvis. 2. Mildly dilated urinary bladder with mild bilateral hydronephrosis and/or parapelvic renal cysts. This could be more definitively evaluated with delayed scanning following placement of a Junior catheter 3. Moderate gaseous distention of the stomach and small bowel. Chest CT 03/12/18 18:23 CONCLUSION: 1. Posterior bibasilar atelectasis. 2. Coronary artery calcium patient. 3. No acute intrathoracic trauma. Cervical Spine CT 03/12/18 18:24 CONCLUSION: 1. No acute bony injury in the cervical spine. 2. Significant disc disease and degenerative spondylosis with fairly significant suspected canal stenosis in the lower cervical spine as described. Head CT 03/12/18 18:24 CONCLUSION: Areas of intracranial hemorrhage and parenchymal contusion as described above. No acute surgical findings. . Head MRI 03/13/18 00:00 CONCLUSION: 1. Interventricular hemorrhage with dilatation of the ventricles. 2. Subarachnoid hemorrhage. 3. Focal hemorrhage in the posterior right lateral midbrain with surrounding edema. This could be from the presumed fall. An underlying vascular lesion in this region could also be suspected. 4. Mild focal edema in the posterior left cerebellar hemisphere. 5. Suspected subgaleal hemorrhage or edema in the parietal scalp region. Neck CTA 03/13/18 00:00 CONCLUSION: Mild plaque at the left proximal internal carotid artery without significant stenosis. Head CT 03/14/18 00:00 CONCLUSION: 1. Persistent intraventricular, subarachnoid and right midbrain hemorrhage. 2. Persistent ventricular dilatation especially of the lateral ventricles. 3. Low density seen throughout the cerebral white matter likely from underlying small vessel ischemic change. . Head CTA 03/14/18 00:00 CONCLUSION: 1. No aneurysm. Neck CTA 03/14/18 00:00 CONCLUSION: 1. Patent carotid arteries and vertebral arteries bilaterally. No aneurysm. Abdomen X-Ray 03/16/18 00:00 CONCLUSION: Tip of the NG tube inside the antrum. Procedures: 03/12: Intubation Assessment and Plan - Disease Oriented Problem List (1) Major neurocognitive disorder as late effect of traumatic brain injury without behavioral disturbance Pertinent Non-Medical Issues: Psychosocial: The patient was born in [facility] where he his first and had one son. 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 The son states he was extremely talented, but very stubborn. He his first many years ago and had remarried , however his second has been for approximately 5 years. Spiritual: Not an important concept of the patient. Legal: No advance directives. Ethical issues impacting care: None noted. . Important Contacts: Son: Elvin Chu Prognosis: His prognosis is guarded per the gerontology aide. Advanced age, time down without treatment, dehydration, exposure and brain trauma may leave him substantially disabled. Family has made him a DO NOT RESUSCITATE status as they feel his ongoing function will be severely limited, which would be unacceptable to the patient, and if no significant improvement occurs over the weekend, family is currently planning for withdrawal of life support on Sunday. . Code Status: Alternative Code (Continue intubation only. No CPR, shock or ACLS protocol drugs.) Plan: PLAN: Legal decision maker: Patient is obtunded, intubated and not capacitated for healthcare decision making. His son, Elvin would be the legal proxy decision- maker per [place] statutes. He states he is willing to serve. Goals: To be determined CODE STATUS: Alternative code, continue intubation, no CPR, no shock, no ACLS drugs. SYMPTOMS: * Encephalopathy-patient remains encephalopathic, obtunded with declining reflexes after head trauma. He has been off sedation for 3 days now and where as he was previously withdrawing to pain in all 4 extremities, minimal response is elicited at this time. * Pain-he is minimally withdrawing to pain but is at risk for painful stimuli from bedbound status, invasive lines, head trauma. He is unable to make his needs known and remains at risk discomfort. Palliative care will continue to follow the patient during hospital course as condition evolves, to assist patient/decision-maker with understanding of their medical conditions, weighing benefits/burdens of treatment options, for clarification of goals of treatment. Additionally will assist with any symptoms of palliative concern. . Attestation Attestation: To help prompt me to consider important information that might be impacting today's encounter and assessment, information from prior notes written by myself or my colleagues may have been "brought forward" into today's note. My signature on this note, however, is an attestation that I personally performed the exam, history, and/or decision-making noted today, and, unless otherwise indicated, the interactions with patient, family, and staff as well as the review of records all occurred today. I also attest that the listed assessment and stated plan reflect my best clinical judgment today based on the combination of historical information, prior notes, and today's exam/ interactions. When time spent is documented, it refers only to time spent today by the signer, or if indicated, combined time spent today by collaborating physician/nurse practitioner. .
[2018-03-19] MEDS: Oral Hygiene Kit OROPHARYNG SCH ×4 (03:49→17:25)
[2018-03-19 05:01] LABS: Hematocrit 31.7 % (39.0-51.0); Hemoglobin 10.8 gm/dL (13.0-17.0); Mean Corpuscular HGB Conc 34.1 % (32.0-36.0); Mean Corpuscular Hemoglobin 31.8 pg (27.0-34.0); Mean Corpuscular Volume 93.4 fL (80.0-100.0); Mean Platelet Volume 10.1 fL (7.0-11.0); Platelet Count 148 th/mm3 (150-450); Red Blood Count 3.39 mil/mm3 (4.50-5.90); Red Cell Distribution Width 13.9 % (11.6-17.2); White Blood Count 8.8 th/mm3 (4.0-11.0)
--- NOTE | 2018-03-19 05:13 | XR ---
EXAM DATE: 03/19/2018 5:03 AM EDT AGE/SEX: 82 years / Male INDICATIONS: Trauma. CLINICAL DATA: This is the patient's subsequent encounter. Patient reports that signs and symptoms h ave been present for 1 week and indicates a pain score of Nonresponsive. MEDICAL/SURGICAL HISTORY: Non-responsive. Non-responsive. COMPARISON: [facility], CHEST 1V SINGLE AP, 03/12/2018. . FINDINGS: Portable AP view of the chest demonstrates a normal-sized cardiac silhouette in this patient post med janneth sternotomy. ETT remains present and nasogastric tube courses beyond the GE junction. There is a s mall right basilar pleural-parenchymal opacity with airspace opacity at the left lung base. No pneumo thorax is identified. The bones and soft tissues demonstrate no acute abnormality. CONCLUSION: New small right basilar opacity characteristic of a pleural effusion with associated volume loss and/ or airspace consolidation. Airspace opacity at the left lung base could represent atelectasis or cons olidation. Electronically signed by: Antoni Martinez MD 03/19/2018 5:12 AM EDT
[2018-03-19 05:21] LABS: Anion Gap 9 meq/L (5-15); Blood Urea Nitrogen 34 mg/dL (7-18); Calcium 7.8 mg/dL (8.5-10.1); Carbon Dioxide 27.4 meq/L (21.0-32.0); Chloride 115 meq/L (98-107); Glomerular Filtration Rate Greater Than 89 mL/min (>89); Glucose,Random 103 mg/dL (74-106); Potassium 4.1 meq/L (3.5-5.1); Sodium 151 meq/L (136-145)
[2018-03-19] MEDS: Sod Chloride 0.9% Inj 1,000 ML IV.CONT SCH ×2 (05:50→17:25)
[2018-03-19] MEDS: fentaNYL Citrate Inj 100 MCG/2 ML Ampul IV.PUSH PRN (06:49)
--- NOTE | 2018-03-19 08:06 | P.PNCC ---
Subjective Brief History: Elderly gentleman found under a ladder and presumably fell off the ladder sometimes with the last 24 hours. Patient was transferred to our institution as priority 1 trauma alert and on arrival patient is [place] coma scale of about 4-5 moving some. Patient was intubated ventilated The patient underwent laboratory and diagnostic workup. After resuscitation, was found to have intracranial hemorrhage with small area of contusion on the right and then a small area of concentrated bleeding in the quadrigeminal plate. No other injuries are noted. The patient has bilateral severe hydronephrosis and parapelvic renal cysts that can be evaluated at a different time. At this point, I am not sure if the patient fell off the ladder and sustained injuries or perhaps he had a stroke in the quadrigeminal area, which is hemorrhagic and then fell off the ladder. Either way, patient is taken care of in the ICU. Appropriate services are consulted. 24 Hour Review/Hospital Course: 03/13 Sedated on small dose of Versed throughout the night which has been discontinued this morning At this point awaiting to see patients reaction to discontinuation of sedation however he is opening his eyes and fluttering eyelids but otherwise no responding to any verbal or tactile stimuli Withdraws to pain [place] Coma Scale about 5E Hemodynamically patient stable Bilateral good breath sounds good PO2 FiO2 gradient on 35% FiO2 assist control mode ventilation Renal function preserved Discuss further with Dr. Marrero and will go ahead with MRI of the brain and based on the findings decide which way to go 03/14 off sedation today-patient's eyes are open, he is not following commands however withdrawing to pain Neuro status clearly improved He remains hemodynamically normal with adequate urine output He is slightly hypertensive, will start him on oral propranolol CT of the neck vessels have been negative-however he may have had bleeding secondary existing aneurysm-we will proceed with a CTA of the head 03/15 On today's exam patient's are not open according to RN he follows commands at times very sluggishly He CTA shows no aneurysm the CT of the head is essentially stable His urine output is marginal is mildly dehydrated so he will receive 1 L of normal saline bolus Patient is on propranolol and clonidine so that will DC clonidine but keep propranolol in case hypertensive will managed with Norvasc, clonidine may potentially contribute to suppress mental status palliative care has been consulted for the goals of care as 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 03/16/2018 Neurologically patient is unchanged Patient is occasionally withdrawing to pain and according to the nurse he followed some commands with upper extremities but I have not seen this Does not open eyes does not track On my exam patient is withdrawing to pain and that is about it [place] Coma Scale therefore is 5 Hemodynamically remained stable Hypertension managed successfully Bilateral breath sounds on AC control ventilation with good PO2 FiO2 gradient Abdomen soft enteral feeds tolerated This patient is 82-year-old and has a very poor prognosis in the face of his injuries and his best case scenario will end up in a [facility] bedridden and unable to take care of himself. There is no chance of functional recovery at this time. This is apparently been discussed by case management with his son and he is contemplating withdrawal of care 03/17/2018 No change in neurologic status Patient withdraws to pain a little bit but that is about it does not open eyes does not track or follow commands He is off all the sedation for the last 3 days No chance of functional neurological recovery at this time based on the injury and age Hemodynamically stable although patient had a period of bradycardia. 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 Hemodynamically stable Bilateral breath sounds remains on assist control ventilation with good PO2 FiO2 gradient Abdomen is soft hypoactive bowel sounds Yesterday afternoon patient had some clots and bright red blood per rectum and feedings have been stopped His most likely diverticular bleed yet patient may have unrecognized other pathology in the known to us Gastroenterology consulted to evaluate the patient Hemoglobin and coagulation studies remain stable 03/19/2018 Neurologically patient is unchanged he is off all the sedation for now for many days however the only activity patient displaces withdrawal to pain Does not open eyes does not follow commands track or in any other way improve neurologically Hugo Coma Scale 4-5 Hemodynamically stable Hemoglobin remains stable despite one episode of maroon colored stool and clots GI consult greatly appreciated Bilateral breath sounds remains on assist control relation with good PO2 FiO2 gradient Patient truly should have a tracheostomy at this point if family pursues further care Apparently son is coming to town in the next few days to make the decision whether to pursue further care or allow withdrawal of care As noted previously this patient has no chance of meaningful recovery and in best case scenario will remain with tracheostomy and feeding tube in a [facility] setting Objective Vital Signs / I&O: Vital Signs 03/18/18 08:09 03/18/18 10:00 03/18/18 11:55 Temperature Pulse Rate 83 Respiratory Rate 16 21 Blood Pressure Pulse Oximetry 97 98 03/18/18 12:00 03/18/18 14:00 03/18/18 16:00 Temperature 98.6 F 98.8 F Pulse Rate 84 79 74 Respiratory Rate 22 16 Blood Pressure 116/64 130/60 Pulse Oximetry 97 100 03/18/18 16:07 03/18/18 18:00 03/18/18 19:49 Temperature Pulse Rate 76 Respiratory Rate 16 16 Blood Pressure Pulse Oximetry 100 99 03/18/18 20:00 03/18/18 22:00 03/19/18 00:00 Temperature 99.1 F 98.2 F Pulse Rate 76 76 74 Respiratory Rate 16 16 Blood Pressure 118/69 115/64 Pulse Oximetry 100 97 03/19/18 01:21 03/19/18 02:00 03/19/18 03:48 Temperature Pulse Rate 78 Respiratory Rate 16 16 Blood Pressure Pulse Oximetry 95 98 03/19/18 04:00 03/19/18 06:00 03/19/18 07:44 Temperature 100.5 F H Pulse Rate 86 112 H Respiratory Rate 16 23 Blood Pressure 120/60 Pulse Oximetry 96 91 L Intake & Output 03/18/18 03/19/18 03/19/18 18:59 06:59 18:59 Intake Total 0 / 0 1000 / 1000 Output Total 1000 / 1000 1075 / 1075 Balance -1000 / -1000 -75 / -75 Weight 78.7 kg Intake: IV 1000 / 1000 NS Inj 1,000 ML @ 80 mls/hr IV. 1000 / 1000 CONT .[id number] [facility] Rx#:[id number] Tube Feeding 0 / 0 Tube Irrigant 0 / 0 Output: Urine Amount (Catheter) 400 / 400 625 / 625 Indwelling Urethral Catheter 400 / 400 625 / 625 Gastric Drainage 600 / 600 450 / 450 Orogastric Tube 600 / 600 450 / 450 Other: Date of Last Bowel Movement 03/18/18 03/19/18 # Bowel Movements 1 # Incontinent Bowel Movements 1 Result Diagrams: 03/19/18 04:07 03/19/18 04:07 Imaging: Impressions Chest X-Ray 03/19/18 06:00 CONCLUSION: New small right basilar opacity characteristic of a pleural effusion with associated volume loss and/or airspace consolidation. Airspace opacity at the left lung base could represent atelectasis or consolidation. Disinhibition Score: 14.00 Aggression Score: 14.00 Lability Score: 14.00 Agitated Behavior Total Score: 14 - Exam ROTOR PILOT: Neurologically patient is unchanged he is off all the sedation for now for many days however the only activity patient displaces withdrawal to pain Does not open eyes does not follow commands track or in any other way improve neurologically Hugo Coma Scale 4-5 Hemodynamic/Cardiac: Hemodynamically stable Hemoglobin remains stable despite one episode of maroon colored stool and clots GI consult greatly appreciated Pulmonary/Respiratory: Bilateral breath sounds remains on assist control relation with good PO2 FiO2 gradient Patient truly should have a tracheostomy at this point if family pursues further care Apparently son is coming to town in the next few days to make the decision whether to pursue further care or allow withdrawal of care As noted previously this patient has no chance of meaningful recovery and in best case scenario will remain with tracheostomy and feeding tube in a [facility] setting Abdomen/GI Nutrition: Abdomen soft active bowel sounds tolerates enteral feeds no more bleeding is noted Renal/I&O: Renal function preserved with slight bump in creatinine probably patient is slightly volume under loaded at this Assessment and Plan Plan: Continue CPAP without extubation Continue tube feeds Continue mechanical ventilation Continue neuro protection Start DVT prophylaxis Attestation: Patient will either receive tracheostomy and PEG or will go under withdrawal of care according to the family's wishes Palliative care is greatly appreciated in their expertise and assistance Critical care 32 minutes
--- NOTE | 2018-03-19 08:10 | P.PNNPSY ---
- Behavior Intact: Impulsive/agitated - Progress Notes/Response to Treatment Contents of Sessions: Adjustment, Level of consciousness Time with Patient: 30 minutes Premorbid Psychological Status: Premorbid Cognitive, Emotional and Behavioral Status: Unable to Assess. The patient is presumed to have high school years of education and an unknown work history prior to this injury. The patient has no known prior psychiatric difficulties, as described above. Substance abuse history is unclear. Behavioral Reactions of Patient and Family/Support System: Deferred. The patients family is experiencing ongoing issues of adjustment given the nature of the injury, and this aspect of recovery will require ongoing monitoring. Emotional/Behavioral Status of Patient and Family/Support System: Deferred. Pertinent issues, if appropriate to this patients clinical care, are described in detail above. Maximizing Acute Care Outcome: It is recommended that the patient be monitored for emergent behavioral impulsivity as the medical condition evolves. This patients neuropathological challenges may limit rehabilitation potential going forward, and these challenges will require specialized therapeutic skills to maximize outcome. Additionally, the patients family is experiencing ongoing issues of adjustment given the traumatic nature of the injury, and they may benefit from ongoing psychological assistance. At this point in the recovery process, the patient does not have cognitive capacity as the patient is unable to understand a situation and its likely consequences, nor is the patient able to manipulate information rationally. Cognitive capacity will be assessed throughout the recovery process. Anticipated Problems: Ongoing areas of concern will include behavioral impulsivity, lack of insight and judgment, which is expected to improve with time and treatment. Given the severity of the patient's injuries it is my clinical opinion that this patient will be unable to return to any type of productive employment for at least one year, perhaps longer and likely never. This patient is not considered safe to discharge home without supervision. Treatment Plan: This clinician will continue to follow with you throughout the course of this patients rehabilitation treatment, and I will be available to meet with the patients family/support system to facilitate their understanding and the ongoing care of their family member. The goals of neuropsychological intervention shall be both educational and supportive to the family/support system as is deemed clinically appropriate. [place] COG Scale: Level II Disinhibition Score: 14.00 Aggression Score: 14.00 Lability Score: 14.00 Agitated Behavior Total Score: 14 Impression: Older gentleman who is s/p TBI 2T fall from ladder on 03/12/2018. Progress Note Narrative: PTD7. The patient is off sedation for several days and no neurobehavioral improvement except withdraw to pain. No issues of agitation/restlessness, with ABS of 14 (14,14,14). He remains on propranolol 20 q8H, decreased to 10 q8H for bradycardia. This patient has no chance for a meaningful neurobehavioral recovery and he remains at [facility]. We are awaiting family to arrive. I will follow. - Diagnosis (1) Major neurocognitive disorder as late effect of traumatic brain injury without behavioral disturbance Status: Acute
[2018-03-19] MEDS: Famotidine PF Inj 20 MG/2 ML Vial IV.PUSH SCH ×2 (08:29→20:39)
[2018-03-19] MEDS: Senna/Docusate Sodium 8.6/50 MG Tablet PO SCH ×2 (08:29→20:39)
[2018-03-19] MEDS: Chlorhexidine 0.12% Oral Kit 15 ML UDC OROPHARYNG SCH ×2 (08:29→20:39)
[2018-03-19] MEDS: Propranolol 10 MG Tablet PO SCH ×3 (09:21→23:15)
--- NOTE | 2018-03-19 09:58 | P.PNNS ---
Subjective Interval history: 03/19: remains intubated and without sedation. continues to not opening or following commands to exam today. Physical Exam Vital signs: Vital Signs 03/18/18 10:00 03/18/18 11:55 03/18/18 12:00 Temperature 98.6 F Pulse Rate 83 84 Respiratory Rate 21 22 Blood Pressure 116/64 Pulse Oximetry 98 97 03/18/18 14:00 03/18/18 16:00 03/18/18 16:07 Temperature 98.8 F Pulse Rate 79 74 Respiratory Rate 16 16 Blood Pressure 130/60 Pulse Oximetry 100 100 03/18/18 18:00 03/18/18 19:49 03/18/18 20:00 Temperature 99.1 F Pulse Rate 76 76 Respiratory Rate 16 16 Blood Pressure 118/69 Pulse Oximetry 99 100 03/18/18 22:00 03/19/18 00:00 03/19/18 01:21 Temperature 98.2 F Pulse Rate 76 74 Respiratory Rate 16 16 Blood Pressure 115/64 Pulse Oximetry 97 95 03/19/18 02:00 03/19/18 03:48 03/19/18 04:00 Temperature 100.5 F H Pulse Rate 78 86 Respiratory Rate 16 16 Blood Pressure 120/60 Pulse Oximetry 98 96 03/19/18 06:00 03/19/18 07:44 03/19/18 08:00 Temperature 103.2 F H Pulse Rate 112 H 129 H Respiratory Rate 23 22 Blood Pressure 144/66 H Pulse Oximetry 91 L 91 L Intake & Output 03/18/18 03/19/18 03/19/18 18:59 06:59 18:59 Intake Total 0 / 0 1000 / 1000 Output Total 1000 / 1000 1075 / 1075 Balance -1000 / -1000 -75 / -75 Weight 78.7 kg Intake: IV 1000 / 1000 NS Inj 1,000 ML @ 80 mls/hr IV. 1000 / 1000 CONT .[id number] MEGHAN Rx#:[id number] Tube Feeding 0 / 0 Tube Irrigant 0 / 0 Output: Urine Amount (Catheter) 400 / 400 625 / 625 Indwelling Urethral Catheter 400 / 400 625 / 625 Gastric Drainage 600 / 600 450 / 450 Orogastric Tube 600 / 600 450 / 450 Other: Date of Last Bowel Movement 03/18/18 03/19/18 03/19/18 # Bowel Movements 1 # Incontinent Bowel Movements 1 Narrative: GENERAL: Elderly male. Intubated. No sedative drips. SKIN: Warm and dry. HEAD: Normocephalic. EYES: No scleral icterus. No injection or drainage. NECK: Supple, trachea midline. No JVD or lymphadenopathy. CARDIOVASCULAR: Regular rate and rhythm RESPIRATORY: mechanically ventilated. GASTROINTESTINAL: Abdomen soft, non-tender, nondistended. MUSCULOSKELETAL: No cyanosis, or edema. Neuro: No eye opening to verbal or pain stimuli. pupils 2 mm bilaterally. Conjugate gaze. Did not follow commands. minimal flexion response to LE's to noxious stimuli. No purposeful movements seen. - Urinary Catheter Management Indwelling Urethral Catheter Cath placed during this visit: yes Reason for continuing: Terminally ill/Comfort care Insertion date: 03/13/18 Insertion time: 03:00 Assessment and Plan - Plan Assessment Elderly male TBI Cervical Spine CT 03/12/18 18:24 CONCLUSION: 1. No acute bony injury in the cervical spine. 2. Significant disc disease and degenerative spondylosis with fairly significant suspected canal stenosis in the lower cervical spine as described. Head MRI 03/13/18 00:00 CONCLUSION: 1. Interventricular hemorrhage with dilatation of the ventricles. 2. Subarachnoid hemorrhage. 3. Focal hemorrhage in the posterior right lateral midbrain with surrounding edema. This could be from the presumed fall. An underlying vascular lesion in this region could also be suspected. 4. Mild focal edema in the posterior left cerebellar hemisphere. 5. Suspected subgaleal hemorrhage or edema in the parietal scalp region. Head CT 03/14/18 00:00 CONCLUSION: 1. Persistent intraventricular, subarachnoid and right midbrain hemorrhage. 2. Persistent ventricular dilatation especially of the lateral ventricles. 3. Low density seen throughout the cerebral white matter likely from underlying small vessel ischemic change. Head CTA 03/14/18 00:00 CONCLUSION: 1. No aneurysm. Neck CTA 03/14/18 00:00 CONCLUSION: 1. Patent carotid arteries and vertebral arteries bilaterally. No aneurysm. CT Brain 03/12 There is a small volume of blood in the posterior horns of the lateral ventricles. minimal subarachnoid blood present in the posterior sylvian fissures bilaterally. A small hemorrhage is present in the quadrigeminal plate region asymmetric to the right. No evidence of significant brain shift. Plan: continues with poor neurological exam, no significant improvement cont neuro checks cont critical care management per trauma team palliative care following
--- NOTE | 2018-03-19 11:49 | P.PNPAL ---
Reason for Visit Reason for visit: a. To assist with evaluation and management of symptoms including: Encephalopathy, pain b. To assist medical decision maker(s) with: better understanding of current medical conditions; weighing benefits/burdens of medical treatment options; making medical treatment decisions. Subjective Subjective/Interval History: Patient visit today is medically necessary for evaluation of symptom management of encephalopathy and pain and goals of medical treatment. He remains encephalopathic, now not responding to painful stimuli either centrally or peripherally. He resists eyelid traction on the right, minimally on the left and has an intermittent, trace plantar flexion response bilaterally. Not withdrawing to painful stimuli in all 4 extremities. Not following commands. He is not focusing or tracking when eyelids are retracted. Pupils are equal and reactive. No spontaneous movement is seen today. The nurse reports no spontaneous activity as well. He has not been receiving sedation for the past 6 days, with last dose of propofol infused 03/13 at 18: 16. He has multiple risk factors for extended pain to include recent fall from a ladder with head trauma and extended exposure lying on ground prior to being found 18-24 hours later. He is unable to quantify or qualify his discomfort secondary to the encephalopathy. . Family/Friend Interactions: Spoke with family yesterday as indicated in note of 03/18 and family requested calls if there were any significant changes. They stated they would call me if they had any questions or concerns but would otherwise meet with me when they arrived from [place] to evaluate possibility of withdrawal of life support. . Objective Vital Signs: Vital Signs 03/18/18 11:55 03/18/18 12:00 03/18/18 14:00 Temperature 98.6 F Pulse Rate 84 79 Respiratory Rate 21 22 Blood Pressure 116/64 Pulse Oximetry 98 97 03/18/18 16:00 03/18/18 16:07 03/18/18 18:00 Temperature 98.8 F Pulse Rate 74 76 Respiratory Rate 16 16 Blood Pressure 130/60 Pulse Oximetry 100 100 03/18/18 19:49 03/18/18 20:00 03/18/18 22:00 Temperature 99.1 F Pulse Rate 76 76 Respiratory Rate 16 16 Blood Pressure 118/69 Pulse Oximetry 99 100 03/19/18 00:00 03/19/18 01:21 03/19/18 02:00 Temperature 98.2 F Pulse Rate 74 78 Respiratory Rate 16 16 Blood Pressure 115/64 Pulse Oximetry 97 95 03/19/18 03:48 03/19/18 04:00 03/19/18 06:00 Temperature 100.5 F H Pulse Rate 86 112 H Respiratory Rate 16 16 Blood Pressure 120/60 Pulse Oximetry 98 96 03/19/18 07:44 03/19/18 08:00 03/19/18 11:13 Temperature 103.2 F H Pulse Rate 129 H Respiratory Rate 23 22 18 Blood Pressure 144/66 H Pulse Oximetry 91 L 91 L 95 Intake & Output 03/18/18 03/19/18 03/19/18 18:59 06:59 18:59 Intake Total 0 / 0 1000 / 1000 Output Total 1000 / 1000 1075 / 1075 Balance -1000 / -1000 -75 / -75 Weight 173 lb 8.061 oz Intake: IV 1000 / 1000 NS Inj 1,000 ML @ 80 mls/hr IV. 1000 / 1000 CONT .[id number] MEGHAN Rx#:[id number] Tube Feeding 0 / 0 Tube Irrigant 0 / 0 Output: Urine Amount (Catheter) 400 / 400 625 / 625 Indwelling Urethral Catheter 400 / 400 625 / 625 Gastric Drainage 600 / 600 450 / 450 Orogastric Tube 600 / 600 450 / 450 Other: Date of Last Bowel Movement 03/18/18 03/19/18 03/19/18 # Bowel Movements 1 # Incontinent Bowel Movements 1 Physical Exam: CONSTITUTIONAL/GENERAL: This is an adequately nourished patient, intubated, not sedated, in no apparent distress. TUBES/LINES/DRAINS: PIV LFA, right wrist HEAD: Small posterior head wound. Normocephalic. EYES: Pupils equal and round and reactive. No scleral icterus. No injection or drainage. Fundi not examined. ENT: Nose without bleeding or purulent drainage. Orally intubated. CARDIOVASCULAR: Regular rate and rhythm without murmurs, gallops, or rubs. No JVD. Peripheral pulses symmetric. RESPIRATORY/CHEST: Symmetric, unlabored respirations. Clear to auscultation. Breath sounds equal bilaterally. No wheezes, rales, or rhonchi. GASTROINTESTINAL: Abdomen soft, nondistended. NG tube to low intermittent wall suction, bowel sounds present. GENITOURINARY: Without palpable bladder distension. Junior catheter in place. MUSCULOSKELETAL: Extremities without clubbing, cyanosis, or edema. No effusion noted. No mottling or clubbing. NEUROLOGICAL: Obtunded, not withdrawing to painful stimuli today, unreliable minimal plantar flexion response, not opening eyes, focusing or tracking. PSYCHIATRIC: Obtunded. . Diagnostic Tests Laboratory: Laboratory Results - last 72 hr 03/17/18 03/17/18 03/17/18 03:47 07:15 18:37 WBC 6.0 9.6 D RBC 3.78 L 3.45 L Hgb 11.9 L 10.9 L Hct 35.2 L 31.9 L MCV 93.0 92.6 MCH 31.5 31.6 MCHC 33.9 34.1 RDW 13.3 13.8 Plt Count 110 L 131 L MPV 9.6 9.3 Neut % (Auto) 75.4 H 90.8 H Lymph % (Auto) 10.5 3.1 L Ford % (Auto) 12.9 H 5.8 Eos % (Auto) 1.0 0.1 Baso % (Auto) 0.2 0.2 Neut # (Auto) 4.5 8.7 H Lymph # (Auto) 0.6 L 0.3 L Ford # (Auto) 0.8 0.6 Eos # (Auto) 0.1 0.0 Baso # (Auto) 0.0 0.0 WBC Differential . . Differential Comment Auto diff final Auto diff final PT INR APTT Sodium 148 H Potassium 4.3 D Chloride 117 H Carbon Dioxide 24.2 Anion Gap 7 BUN 33 H Creatinine 0.81 Estimated GFR Greater than 89 Random Glucose 169 H Calcium 7.4 L* Prot Corrected Calcium 8.6 Total Protein 4.9 L 03/17/18 03/17/18 03/19/18 18:37 18:37 04:07 WBC 8.8 RBC 3.39 L Hgb 10.8 L Hct 31.7 L MCV 93.4 MCH 31.8 MCHC 34.1 RDW 13.9 Plt Count 148 L MPV 10.1 Neut % (Auto) Lymph % (Auto) Ford % (Auto) Eos % (Auto) Baso % (Auto) Neut # (Auto) Lymph # (Auto) Ford # (Auto) Eos # (Auto) Baso # (Auto) WBC Differential Differential Comment PT 11.0 INR 1.1 APTT Cancelled 26.4 Sodium Potassium Chloride Carbon Dioxide Anion Gap BUN Creatinine Estimated GFR Random Glucose Calcium Prot Corrected Calcium Total Protein 03/19/18 04:07 WBC RBC Hgb Hct MCV MCH MCHC RDW Plt Count MPV Neut % (Auto) Lymph % (Auto) Ford % (Auto) Eos % (Auto) Baso % (Auto) Neut # (Auto) Lymph # (Auto) Ford # (Auto) Eos # (Auto) Baso # (Auto) WBC Differential Differential Comment PT INR APTT Sodium 151 H Potassium 4.1 Chloride 115 H Carbon Dioxide 27.4 Anion Gap 9 BUN 34 H Creatinine 0.72 Estimated GFR Greater than 89 Random Glucose 103 Calcium 7.8 L Prot Corrected Calcium Total Protein Result Diagrams: 03/19/18 04:07 03/19/18 04:07 Procedures: 03/12: Intubation Assessment and Plan - Disease Oriented Problem List (1) Major neurocognitive disorder as late effect of traumatic brain injury without behavioral disturbance Pertinent Non-Medical Issues: Psychosocial: The patient was born in [facility] where he his first and had one son. 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 The son states he was extremely talented, but very stubborn. He his first many years ago and had remarried , however his second has been for approximately 5 years. Spiritual: Not an important concept of the patient. Legal: No advance directives. Ethical issues impacting care: None noted. . Important Contacts: Son: Elvin Chu Prognosis: His prognosis is guarded per the pulp machine operator. Advanced age, time down without treatment, dehydration, exposure and brain trauma may leave him substantially disabled. Family has made him a DO NOT RESUSCITATE status as they feel his ongoing function will be severely limited, which would be unacceptable to the patient, and if no significant improvement occurs over the weekend, family is currently planning for withdrawal of life support on Sunday. . Code Status: Alternative Code (Continue intubation only. No CPR, shock or ACLS protocol drugs.) Plan: PLAN: Legal decision maker: Patient is obtunded, intubated and not capacitated for healthcare decision making. His son, Elvin would be the legal proxy decision- maker per [place] statutes. He states he is willing to serve. Goals: To be determined CODE STATUS: Alternative code, continue intubation, no CPR, no shock, no ACLS drugs. SYMPTOMS: * Encephalopathy-patient remains encephalopathic, obtunded with declining reflexes after head trauma. He has been off sedation for 6 days now and where as he was previously withdrawing to pain in all 4 extremities, no response is elicited at this time. During CPAP trial yesterday, he had an episode of apnea requiring return to a rate. * Pain-he is not withdrawing to pain but is at risk for painful stimuli from bedbound status, invasive lines, head trauma. He is unable to make his needs known and remains at risk for discomfort. Palliative care will continue to follow the patient during hospital course as condition evolves, to assist patient/decision-maker with understanding of their medical conditions, weighing benefits/burdens of treatment options, for clarification of goals of treatment. Additionally will assist with any symptoms of palliative concern. . Attestation Attestation: To help prompt me to consider important information that might be impacting today's encounter and assessment, information from prior notes written by myself or my colleagues may have been "brought forward" into today's note. My signature on this note, however, is an attestation that I personally performed the exam, history, and/or decision-making noted today, and, unless otherwise indicated, the interactions with patient, family, and staff as well as the review of records all occurred today. I also attest that the listed assessment and stated plan reflect my best clinical judgment today based on the combination of historical information, prior notes, and today's exam/ interactions. When time spent is documented, it refers only to time spent today by the signer, or if indicated, combined time spent today by collaborating physician/nurse practitioner. .
--- NOTE | 2018-03-19 13:17 | P.PNGI ---
Subjective Interval history: Patient continues in the intensive care with ventilator management no current family present patient appears to be comfortable <Loreta Luu M - Last Filed: 03/19/18 13:18> Physical Exam Vital signs: Vital Signs 03/18/18 14:00 03/18/18 16:00 03/18/18 16:07 Temperature 98.8 F Pulse Rate 79 74 Respiratory Rate 16 16 Blood Pressure 130/60 Pulse Oximetry 100 100 03/18/18 18:00 03/18/18 19:49 03/18/18 20:00 Temperature 99.1 F Pulse Rate 76 76 Respiratory Rate 16 16 Blood Pressure 118/69 Pulse Oximetry 99 100 03/18/18 22:00 03/19/18 00:00 03/19/18 01:21 Temperature 98.2 F Pulse Rate 76 74 Respiratory Rate 16 16 Blood Pressure 115/64 Pulse Oximetry 97 95 03/19/18 02:00 03/19/18 03:48 03/19/18 04:00 Temperature 100.5 F H Pulse Rate 78 86 Respiratory Rate 16 16 Blood Pressure 120/60 Pulse Oximetry 98 96 03/19/18 06:00 03/19/18 07:44 03/19/18 08:00 Temperature 103.2 F H Pulse Rate 112 H 129 H Respiratory Rate 23 22 Blood Pressure 144/66 H Pulse Oximetry 91 L 91 L 03/19/18 10:00 03/19/18 11:13 03/19/18 11:40 Temperature 103.1 F H Pulse Rate 82 Respiratory Rate 18 Blood Pressure Pulse Oximetry 95 03/19/18 12:00 Temperature 101.6 F H Pulse Rate 74 Respiratory Rate 22 Blood Pressure 98/54 L Pulse Oximetry 94 L Intake & Output 03/18/18 03/19/18 03/19/18 18:59 06:59 18:59 Intake Total 0 / 0 1000 / 1000 Output Total 1000 / 1000 1075 / 1075 Balance -1000 / -1000 -75 / -75 Weight 78.7 kg Intake: IV 1000 / 1000 NS Inj 1,000 ML @ 80 mls/hr IV. 1000 / 1000 CONT .[id number] [facility] Rx#:[id number] Tube Feeding 0 / 0 Tube Irrigant 0 / 0 Output: Urine Amount (Catheter) 400 / 400 625 / 625 Indwelling Urethral Catheter 400 / 400 625 / 625 Gastric Drainage 600 / 600 450 / 450 Orogastric Tube 600 / 600 450 / 450 Other: Date of Last Bowel Movement 03/18/18 03/19/18 03/19/18 # Bowel Movements 1 # Incontinent Bowel Movements 1 - Constitutional no acute distress, thin (Ventilator management), cachectic - Routine HEENT Exam ENT: Present: mucous membranes moist - Routine Respiratory Exam Present: accessory muscle use, patient mechanically ventilated - Routine Abdominal Exam Present: soft (Round, no obvious distention soft bowel sounds) - Routine Skin Exam Present: pallor - Urinary Catheter Management Indwelling Urethral Catheter Cath placed during this visit: yes Reason for continuing: Terminally ill/Comfort care Insertion date: 03/13/18 Insertion time: 03:00 <Loreta Luu - Last Filed: 03/19/18 13:18> Vital signs: Vital Signs 03/18/18 18:00 03/18/18 19:49 03/18/18 20:00 Temperature 99.1 F Pulse Rate 76 76 Respiratory Rate 16 16 Blood Pressure 118/69 Pulse Oximetry 99 100 03/18/18 22:00 03/19/18 00:00 03/19/18 01:21 Temperature 98.2 F Pulse Rate 76 74 Respiratory Rate 16 16 Blood Pressure 115/64 Pulse Oximetry 97 95 03/19/18 02:00 03/19/18 03:48 03/19/18 04:00 Temperature 100.5 F H Pulse Rate 78 86 Respiratory Rate 16 16 Blood Pressure 120/60 Pulse Oximetry 98 96 03/19/18 06:00 03/19/18 07:44 03/19/18 08:00 Temperature 103.2 F H Pulse Rate 112 H 129 H Respiratory Rate 23 22 Blood Pressure 144/66 H Pulse Oximetry 91 L 91 L 03/19/18 10:00 03/19/18 11:13 03/19/18 11:40 Temperature 103.1 F H Pulse Rate 82 Respiratory Rate 18 Blood Pressure Pulse Oximetry 95 03/19/18 12:00 03/19/18 14:00 03/19/18 14:40 Temperature 101.6 F H 99.2 F Pulse Rate 74 67 Respiratory Rate 22 Blood Pressure 98/54 L Pulse Oximetry 94 L 03/19/18 15:00 Temperature Pulse Rate Respiratory Rate 16 Blood Pressure Pulse Oximetry 96 Intake & Output 03/18/18 03/19/18 03/19/18 18:59 06:59 18:59 Intake Total 0 / 0 1000 / 1000 Output Total 1000 / 1000 1075 / 1075 Balance -1000 / -1000 -75 / -75 Weight 78.7 kg Intake: IV 1000 / 1000 NS Inj 1,000 ML @ 80 mls/hr IV. 1000 / 1000 CONT .[id number] [facility] Rx#:[id number] Tube Feeding 0 / 0 Tube Irrigant 0 / 0 Output: Urine Amount (Catheter) 400 / 400 625 / 625 Indwelling Urethral Catheter 400 / 400 625 / 625 Gastric Drainage 600 / 600 450 / 450 Orogastric Tube 600 / 600 450 / 450 Other: Date of Last Bowel Movement 03/18/18 03/19/18 03/19/18 # Bowel Movements 1 # Incontinent Bowel Movements 1 - Urinary Catheter Management Indwelling Urethral Catheter Cath placed during this visit: no <Raf Tapia - Last Filed: 03/19/18 16:24> Results - Labs CBC & Chem 7: 03/19/18 04:07 03/19/18 04:07 Laboratory Results - last 24 hr 03/19/18 03/19/18 04:07 04:07 WBC 8.8 RBC 3.39 L Hgb 10.8 L Hct 31.7 L MCV 93.4 MCH 31.8 MCHC 34.1 RDW 13.9 Plt Count 148 L MPV 10.1 Sodium 151 H Potassium 4.1 Chloride 115 H Carbon Dioxide 27.4 Anion Gap 9 BUN 34 H Creatinine 0.72 Estimated GFR Greater than 89 Random Glucose 103 Calcium 7.8 L - Imaging Impressions Chest X-Ray 03/19/18 06:00 CONCLUSION: New small right basilar opacity characteristic of a pleural effusion with associated volume loss and/or airspace consolidation. Airspace opacity at the left lung base could represent atelectasis or consolidation. <Loreta Luu - Last Filed: 03/19/18 13:18> - Labs CBC & Chem 7: 03/19/18 04:07 03/19/18 04:07 Laboratory Results - last 24 hr 03/19/18 03/19/18 04:07 04:07 WBC 8.8 RBC 3.39 L Hgb 10.8 L Hct 31.7 L MCV 93.4 MCH 31.8 MCHC 34.1 RDW 13.9 Plt Count 148 L MPV 10.1 Sodium 151 H Potassium 4.1 Chloride 115 H Carbon Dioxide 27.4 Anion Gap 9 BUN 34 H Creatinine 0.72 Estimated GFR Greater than 89 Random Glucose 103 Calcium 7.8 L - Imaging Impressions Chest X-Ray 03/19/18 06:00 CONCLUSION: New small right basilar opacity characteristic of a pleural effusion with associated volume loss and/or airspace consolidation. Airspace opacity at the left lung base could represent atelectasis or consolidation. <Raf Tapia - Last Filed: 03/19/18 16:24> Assessment and Plan (1) Rectal bleeding Status: Acute Code(s): K62.5 - Hemorrhage of anus and rectum - Plan 82-year-old male currently in the intensive care setting since 03/12/2018 post trauma. Patient is intubated and has oral NG tube now connected to low intermittent suction. There is bilious fluid being obtained but no obvious blood. Junior catheter shows orange clear urine and IV fluids are at 80 cc an hour Palliative care has a meeting set up according to the staff and record today to discuss further options as patient has severe brain injury and no chance of meaningful recovery according to the record. Rectal bleeding, first known event this admission which could be related to hemorrhoid versus diverticular bleed since blood was red. Patient had been on heparin subcu which is now being held. Within the past 8 hours there is been no obvious rectal bleeding noted. Gastroenterology has been consulted to assist with any appropriate needs and plan of care. 03/19/2018 patient remains in the intensive care on ventilator management. Patient has no obvious rectal bleeding today but there was noted an occasional smear when wiping are assisting with bowel movements. There is no family present but nurse updated that there are family members coming in from out of town this coming . Heparin remains on hold. Patient has oral gastric tube intact for feedings or suction as warranted. GI will be on board to monitor any acute changes in rectal bleeding, currently the plan is to observe. Plan Maintain hold on heparin subcu Observation for any acute uncontrolled rectal bleeding bowel regimen Zofran Pepcid Supportive care for patient and family Patient was seen per myself and Dr. Tapia, note was written on his behalf <Loreta Luu - Last Filed: 03/19/18 13:18> (1) Rectal bleeding Status: Acute Code(s): K62.5 - Hemorrhage of anus and rectum - Attending Attestation Seen and examined. Will follow up clinically and follow HH. Further recommendations to follow. <Raf Tapia - Last Filed: 03/19/18 16:24>
[2018-03-20] MEDS: Oral Hygiene Kit OROPHARYNG SCH ×4 (01:13→17:02)
[2018-03-20 05:43] LABS: Baso % (Auto) 0.2 % (0.0-2.0); Eos % (Auto) 0.2 % (0.0-4.0); Hematocrit 33.9 % (39.0-51.0); Hemoglobin 11.3 gm/dL (13.0-17.0); Lymph # (Auto) 0.4 th/mm3 (1.0-4.8); Lymph % (Auto) 2.3 % (9.0-44.0); Mean Corpuscular HGB Conc 33.4 % (32.0-36.0); Mean Corpuscular Hemoglobin 31.1 pg (27.0-34.0); Mean Corpuscular Volume 93.1 fL (80.0-100.0); Mean Platelet Volume 9.7 fL (7.0-11.0); Mono # (Auto) 0.5 th/mm3 (0.0-0.9); Mono % (Auto) 2.8 % (0.0-8.0); Neut # (Auto) 15.6 th/mm3 (1.8-7.7); Neut % (Auto) 94.5 % (16.0-70.0); Platelet Count 254 th/mm3 (150-450); Red Blood Count 3.64 mil/mm3 (4.50-5.90); White Blood Count 16.5 th/mm3 (4.0-11.0)
[2018-03-20 06:13] LABS: Albumin 1.7 g/dL (3.4-5.0); Anion Gap 8 meq/L (5-15); Aspartate Aminotransferase 66 U/L (15-37); Blood Urea Nitrogen 34 mg/dL (7-18); Calcium 7.9 mg/dL (8.5-10.1); Carbon Dioxide 25.1 meq/L (21.0-32.0); Chloride 117 meq/L (98-107); Glomerular Filtration Rate 83 mL/min (>89); Glucose,Random 136 mg/dL (74-106); Potassium 4.2 meq/L (3.5-5.1); Sodium 150 meq/L (136-145)
[2018-03-20 06:17] LABS: Alanine Aminotransferase 59 U/L (12-78); Alkaline Phosphatase 107 U/L (45-117); Total Protein 5.7 g/dL (6.4-8.2)
[2018-03-20] MEDS: Sod Chloride 0.9% Inj 1,000 ML IV.CONT SCH ×5 (07:05→13:13)
[2018-03-20] MEDS: Propranolol 10 MG Tablet PO SCH ×3 (07:40→22:53)
--- NOTE | 2018-03-20 08:05 | P.PNNPSY ---
- Behavior Intact: Impulsive/agitated - Progress Notes/Response to Treatment Contents of Sessions: Adjustment, Level of consciousness Time with Patient: 30 minutes Premorbid Psychological Status: Premorbid Cognitive, Emotional and Behavioral Status: Unable to Assess. The patient is presumed to have high school years of education and an unknown work history prior to this injury. The patient has no known prior psychiatric difficulties, as described above. Substance abuse history is unclear. Behavioral Reactions of Patient and Family/Support System: Deferred. The patients family is experiencing ongoing issues of adjustment given the nature of the injury, and this aspect of recovery will require ongoing monitoring. Emotional/Behavioral Status of Patient and Family/Support System: Deferred. Pertinent issues, if appropriate to this patients clinical care, are described in detail above. Maximizing Acute Care Outcome: It is recommended that the patient be monitored for emergent behavioral impulsivity as the medical condition evolves. This patients neuropathological challenges may limit rehabilitation potential going forward, and these challenges will require specialized therapeutic skills to maximize outcome. Additionally, the patients family is experiencing ongoing issues of adjustment given the traumatic nature of the injury, and they may benefit from ongoing psychological assistance. At this point in the recovery process, the patient does not have cognitive capacity as the patient is unable to understand a situation and its likely consequences, nor is the patient able to manipulate information rationally. Cognitive capacity will be assessed throughout the recovery process. Anticipated Problems: Ongoing areas of concern will include behavioral impulsivity, lack of insight and judgment, which is expected to improve with time and treatment. Given the severity of the patient's injuries it is my clinical opinion that this patient will be unable to return to any type of productive employment for at least one year, perhaps longer and likely never. This patient is not considered safe to discharge home without supervision. Treatment Plan: This clinician will continue to follow with you throughout the course of this patients rehabilitation treatment, and I will be available to meet with the patients family/support system to facilitate their understanding and the ongoing care of their family member. The goals of neuropsychological intervention shall be both educational and supportive to the family/support system as is deemed clinically appropriate. [place] COG Scale: Level II Disinhibition Score: 14.00 Aggression Score: 14.00 Lability Score: 14.00 Agitated Behavior Total Score: 14 Impression: Older gentleman who is s/p TBI 2T fall from ladder on 03/12/2018. Progress Note Narrative: PTD 8. There is no change in the patient from a neurobehavioral standpoint. No issues of agitation/restlessness. At best, he is [place] II. Family is arriving on to consider withdrawal of life support. I will follow. - Diagnosis (1) Major neurocognitive disorder as late effect of traumatic brain injury without behavioral disturbance Status: Acute
[2018-03-20] MEDS: Chlorhexidine 0.12% Oral Kit 15 ML UDC OROPHARYNG SCH ×2 (08:45→20:36)
[2018-03-20] MEDS: Famotidine PF Inj 20 MG/2 ML Vial IV.PUSH SCH ×2 (08:50→22:52)
[2018-03-20] MEDS: Senna/Docusate Sodium 8.6/50 MG Tablet PO SCH ×2 (08:50→22:52)
[2018-03-20 09:39] LABS: Hematocrit 27.8 % (39.0-51.0); Hemoglobin 9.4 gm/dL (13.0-17.0); Mean Corpuscular HGB Conc 33.6 % (32.0-36.0); Mean Corpuscular Hemoglobin 31.4 pg (27.0-34.0); Mean Corpuscular Volume 93.2 fL (80.0-100.0); Mean Platelet Volume 10.1 fL (7.0-11.0); Platelet Count 221 th/mm3 (150-450); Red Blood Count 2.99 mil/mm3 (4.50-5.90); Red Cell Distribution Width 13.9 % (11.6-17.2); White Blood Count 18.5 th/mm3 (4.0-11.0)
[2018-03-20] MEDS ORDERED: Sodium Chlor 0.9% Inj 500 ML IV.SIG SCH (10:00)
--- NOTE | 2018-03-20 11:17 | P.PNCC ---
Subjective Brief History: Elderly gentleman found under a ladder and presumably fell off the ladder sometimes with the last 24 hours. Patient was transferred to our institution as priority 1 trauma alert and on arrival patient is [place] coma scale of about 4-5 moving some. Patient was intubated ventilated The patient underwent laboratory and diagnostic workup. After resuscitation, was found to have intracranial hemorrhage with small area of contusion on the right and then a small area of concentrated bleeding in the quadrigeminal plate. No other injuries are noted. The patient has bilateral severe hydronephrosis and parapelvic renal cysts that can be evaluated at a different time. At this point, I am not sure if the patient fell off the ladder and sustained injuries or perhaps he had a stroke in the quadrigeminal area, which is hemorrhagic and then fell off the ladder. Either way, patient is taken care of in the ICU. Appropriate services are consulted. 24 Hour Review/Hospital Course: 03/13 Sedated on small dose of Versed throughout the night which has been discontinued this morning At this point awaiting to see patients reaction to discontinuation of sedation however he is opening his eyes and fluttering eyelids but otherwise no responding to any verbal or tactile stimuli Withdraws to pain [place] Coma Scale about 5E Hemodynamically patient stable Bilateral good breath sounds good PO2 FiO2 gradient on 35% FiO2 assist control mode ventilation Renal function preserved Discuss further with Dr. Marrero and will go ahead with MRI of the brain and based on the findings decide which way to go 03/14 off sedation today-patient's eyes are open, he is not following commands however withdrawing to pain Neuro status clearly improved He remains hemodynamically normal with adequate urine output He is slightly hypertensive, will start him on oral propranolol CT of the neck vessels have been negative-however he may have had bleeding secondary existing aneurysm-we will proceed with a CTA of the head 03/15 On today's exam patient's are not open according to RN he follows commands at times very sluggishly He CTA shows no aneurysm the CT of the head is essentially stable His urine output is marginal is mildly dehydrated so he will receive 1 L of normal saline bolus Patient is on propranolol and clonidine so that will DC clonidine but keep propranolol in case hypertensive will managed with Norvasc, clonidine may potentially contribute to suppress mental status palliative care has been consulted for the goals of care as 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 03/16/2018 Neurologically patient is unchanged Patient is occasionally withdrawing to pain and according to the nurse he followed some commands with upper extremities but I have not seen this Does not open eyes does not track On my exam patient is withdrawing to pain and that is about it [place] Coma Scale therefore is 5 Hemodynamically remained stable Hypertension managed successfully Bilateral breath sounds on AC control ventilation with good PO2 FiO2 gradient Abdomen soft enteral feeds tolerated This patient is 82-year-old and has a very poor prognosis in the face of his injuries and his best case scenario will end up in a fpc bedridden and unable to take care of himself. There is no chance of functional recovery at this time. This is apparently been discussed by case management with his son and he is contemplating withdrawal of care 03/17/2018 No change in neurologic status Patient withdraws to pain a little bit but that is about it does not open eyes does not track or follow commands He is off all the sedation for the last 3 days No chance of functional neurological recovery at this time based on the injury and age Hemodynamically stable although patient had a period of bradycardia. 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 Hemodynamically stable Bilateral breath sounds remains on assist control ventilation with good PO2 FiO2 gradient Abdomen is soft hypoactive bowel sounds Yesterday afternoon patient had some clots and bright red blood per rectum and feedings have been stopped His most likely diverticular bleed yet patient may have unrecognized other pathology in the known to us Gastroenterology consulted to evaluate the patient Hemoglobin and coagulation studies remain stable 03/19/2018 Neurologically patient is unchanged he is off all the sedation for now for many days however the only activity patient displaces withdrawal to pain Does not open eyes does not follow commands track or in any other way improve neurologically [place] Coma Scale 4-5 Hemodynamically stable Hemoglobin remains stable despite one episode of maroon colored stool and clots GI consult greatly appreciated Bilateral breath sounds remains on assist control relation with good PO2 FiO2 gradient Patient truly should have a tracheostomy at this point if family pursues further care Apparently son is coming to town in the next few days to make the decision whether to pursue further care or allow withdrawal of care As noted previously this patient has no chance of meaningful recovery and in best case scenario will remain with tracheostomy and feeding tube in a fpc setting 03/20/2018 Patient's clinical exam remains unchanged. He is withdrawing left lower extremity only with no spontaneous movement. Patient is a modified code because he is intubated. Awaiting arrival of family to decide further course of action. His hemoglobin is stable at 8.8 following 2 units of packed cells. Objective Vital Signs / I&O: Vital Signs 03/19/18 11:40 03/19/18 12:00 03/19/18 14:00 Temperature 103.1 F H 101.6 F H Pulse Rate 74 67 Respiratory Rate 22 Blood Pressure 98/54 L Pulse Oximetry 94 L 03/19/18 14:40 03/19/18 15:00 03/19/18 16:00 Temperature 99.2 F 100.4 F H Pulse Rate 68 Respiratory Rate 16 23 Blood Pressure 125/61 Pulse Oximetry 96 95 03/19/18 18:00 03/19/18 19:36 03/19/18 20:00 Temperature 100.6 F H Pulse Rate 78 90 Respiratory Rate 27 H 28 H Blood Pressure 131/62 Pulse Oximetry 96 95 03/19/18 22:00 03/19/18 23:45 03/20/18 00:00 Temperature 98.9 F Pulse Rate 86 76 Respiratory Rate 17 Blood Pressure 116/58 L Pulse Oximetry 97 97 03/20/18 02:00 03/20/18 03:22 03/20/18 04:00 Temperature 100.7 F H Pulse Rate 84 97 H Respiratory Rate 26 H 26 H Blood Pressure 123/64 Pulse Oximetry 97 96 03/20/18 05:26 03/20/18 06:00 03/20/18 07:47 Temperature Pulse Rate 110 H Respiratory Rate 30 H 31 H Blood Pressure Pulse Oximetry 93 L 03/20/18 08:00 03/20/18 10:00 Temperature 100.0 F H Pulse Rate 104 H 96 H Respiratory Rate 24 Blood Pressure 90/51 L Pulse Oximetry 92 L Intake & Output 03/19/18 03/20/18 03/20/18 18:59 06:59 18:59 Intake Total 1380 / 1380 952 / 952 1500 / 1500 Output Total 500 / 500 900 / 900 Balance 880 / 880 52 / 52 1500 / 1500 Weight 78.6 kg Intake: IV 1100 / 1100 200 / 200 1500 / 1500 NS Inj 1,000 ML @ 80 mls/hr IV. 1000 / 1000 1000 / 1000 CONT .[id number] [facility] Rx#:[id number] Ofirmev Inj 1,000 mg In 100 ml 100 / 100 200 / 200 @ 400 mls/hr IV.SIG Q6H PRN Rx# :[id number] NS Inj 500 ML @ As Directed IV. 500 / 500 SIG BOLUS [facility] Rx#:[id number] Tube Feeding 250 / 250 752 / 752 Tube Irrigant 30 / 30 Output: Urine Amount (Catheter) 500 / 500 900 / 900 Indwelling Urethral Catheter 500 / 500 900 / 900 Other: Date of Last Bowel Movement 03/19/18 03/20/18 03/20/18 # Incontinent Bowel Movements 1 2 Result Diagrams: 03/21/18 03:37 03/21/18 03:37 Disinhibition Score: 14.00 Aggression Score: 14.00 Lability Score: 14.00 Agitated Behavior Total Score: 14 - Exam PIECE CUTTER: Withdraws to noxious stimuli left lower extremity only Hemodynamic/Cardiac: Regular rate and rhythm Pulmonary/Respiratory: Clear to auscultation bilaterally, on full ventilator support Abdomen/GI Nutrition: Soft nontender nondistended Assessment and Plan Plan: Patient is currently stable from a GI bleed standpoint Continue full ventilator support Await family to consider withdrawal of care versus tracheostomy and gastrostomy tube placement
--- NOTE | 2018-03-20 14:28 | P.PNPAL ---
Reason for Visit Reason for visit: a. To assist with evaluation and management of symptoms including: Encephalopathy, pain b. To assist medical decision maker(s) with: better understanding of current medical conditions; weighing benefits/burdens of medical treatment options; making medical treatment decisions. Subjective Subjective/Interval History: Patient visit today is medically necessary for evaluation of symptom management of encephalopathy and pain and goals of medical treatment. He has been off sedation since 03/13. At this time is only appropriate response is withdrawal to pain in the lower extremities. He does not follow commands. He does not open his eyes spontaneously to voice or noxious stimuli. Nurses reported that with turning and repositioning he has opened his eyes spontaneously once but did not focus or track. White blood cell count continues to rise, currently at 18.5. T-max today 100.7. T-max yesterday 103.2. He is unable to quantify or qualify the pain, however, he is seen to grimace slightly with noxious or loud verbal stimuli. No central withdrawal from pain, no withdrawal from pain in upper extremities. He received 50 mcg of IV fentanyl on 03/19 for occasional grimace. He is receiving Ofirmev for pain and fever. There has been no significant improvement or recovery since admission. . Family/Friend Interactions: His son is arriving from [place] 03/21 and per my conversation with him, plans to withdraw life support, as he states his father would not be happy in any state except independent. As he has virtually no chance of that occurring, per specialist prognosis, it is the son's intention to withdraw life support, however states he cannot make that decision without first seeing his father. . Advance Directives Living Will: Never completed Health Care Surrogate: Never completed Durable Power of Spout Liner Helper: Never completed Objective Vital Signs: Vital Signs 03/19/18 14:40 03/19/18 15:00 03/19/18 16:00 Temperature 99.2 F 100.4 F H Pulse Rate 68 Respiratory Rate 16 23 Blood Pressure 125/61 Pulse Oximetry 96 95 03/19/18 18:00 03/19/18 19:36 03/19/18 20:00 Temperature 100.6 F H Pulse Rate 78 90 Respiratory Rate 27 H 28 H Blood Pressure 131/62 Pulse Oximetry 96 95 03/19/18 22:00 03/19/18 23:45 03/20/18 00:00 Temperature 98.9 F Pulse Rate 86 76 Respiratory Rate 17 Blood Pressure 116/58 L Pulse Oximetry 97 97 03/20/18 02:00 03/20/18 03:22 03/20/18 04:00 Temperature 100.7 F H Pulse Rate 84 97 H Respiratory Rate 26 H 26 H Blood Pressure 123/64 Pulse Oximetry 97 96 03/20/18 05:26 03/20/18 06:00 03/20/18 07:47 Temperature Pulse Rate 110 H Respiratory Rate 30 H 31 H Blood Pressure Pulse Oximetry 93 L 03/20/18 08:00 03/20/18 10:00 03/20/18 12:00 Temperature 100.0 F H 99.0 F Pulse Rate 104 H 96 H 96 H Respiratory Rate 24 21 Blood Pressure 90/51 L 107/56 L Pulse Oximetry 92 L 100 03/20/18 12:20 Temperature Pulse Rate Respiratory Rate 21 Blood Pressure Pulse Oximetry 99 Intake & Output 03/19/18 03/20/18 03/20/18 18:59 06:59 18:59 Intake Total 1380 / 1380 952 / 952 3500 / 3500 Output Total 500 / 500 900 / 900 Balance 880 / 880 52 / 52 3500 / 3500 Weight 173 lb 4.533 oz Intake: IV 1100 / 1100 200 / 200 3500 / 3500 NS Inj 1,000 ML @ 1000 mls/hr 1000 / 1000 3000 / 3000 IV.CONT .Q1H [facility] Rx#:[id number] Ofirmev Inj 1,000 mg In 100 ml 100 / 100 200 / 200 @ 400 mls/hr IV.SIG Q6H PRN Rx# :[id number] NS Inj 500 ML @ As Directed IV. 500 / 500 SIG [facility]OLUS MEGHAN Rx#:[id number] Tube Feeding 250 / 250 752 / 752 Tube Irrigant 30 / 30 Output: Urine Amount (Catheter) 500 / 500 900 / 900 Indwelling Urethral Catheter 500 / 500 900 / 900 Other: Date of Last Bowel Movement 03/19/18 03/20/18 03/20/18 # Incontinent Bowel Movements 1 2 Physical Exam: CONSTITUTIONAL/GENERAL: This is an adequately nourished patient, intubated, not sedated, in no apparent distress. TUBES/LINES/DRAINS: PIV LFA, right wrist HEAD: Small posterior head wound. Normocephalic. EYES: Pupils equal and round and reactive. No scleral icterus. No injection or drainage. Fundi not examined. ENT: Nose without bleeding or purulent drainage. Orally intubated. CARDIOVASCULAR: Regular rate and rhythm without murmurs, gallops, or rubs. No JVD. Peripheral pulses symmetric. RESPIRATORY/CHEST: Symmetric, unlabored respirations. Clear to auscultation. Breath sounds equal bilaterally. No wheezes, rales, or rhonchi. GASTROINTESTINAL: Abdomen soft, nondistended. NG tube to low intermittent wall suction, bowel sounds present. GENITOURINARY: Without palpable bladder distension. Junior catheter in place. MUSCULOSKELETAL: Extremities without clubbing, cyanosis, or edema. No effusion noted. No mottling or clubbing. NEUROLOGICAL: Obtunded, withdrawing to painful stimuli today in lower extremities only, unreliable minimal plantar flexion response, not opening eyes , focusing or tracking. PSYCHIATRIC: Obtunded. . Diagnostic Tests Laboratory: Laboratory Results - last 72 hr 03/17/18 03/17/18 03/17/18 18:37 18:37 18:37 WBC 9.6 D RBC 3.45 L Hgb 10.9 L Hct 31.9 L MCV 92.6 MCH 31.6 MCHC 34.1 RDW 13.8 Plt Count 131 L MPV 9.3 Neut % (Auto) 90.8 H Lymph % (Auto) 3.1 L [place] % (Auto) 5.8 Eos % (Auto) 0.1 Baso % (Auto) 0.2 Neut # (Auto) 8.7 H Lymph # (Auto) 0.3 L [place] # (Auto) 0.6 Eos # (Auto) 0.0 Baso # (Auto) 0.0 WBC Differential . Differential Comment Auto diff final PT 11.0 INR 1.1 APTT Cancelled 26.4 Sodium Potassium Chloride Carbon Dioxide Anion Gap BUN Creatinine Estimated GFR Random Glucose Calcium Total Bilirubin AST ALT Alkaline Phosphatase Total Protein Albumin 03/19/18 03/19/18 03/20/18 04:07 04:07 05:29 WBC 8.8 16.5 H RBC 3.39 L 3.64 L Hgb 10.8 L 11.3 L Hct 31.7 L 33.9 L MCV 93.4 93.1 MCH 31.8 31.1 MCHC 34.1 33.4 RDW 13.9 14.0 Plt Count 148 L 254 D MPV 10.1 9.7 Neut % (Auto) 94.5 H Lymph % (Auto) 2.3 L [place] % (Auto) 2.8 Eos % (Auto) 0.2 Baso % (Auto) 0.2 Neut # (Auto) 15.6 H Lymph # (Auto) 0.4 L [place] # (Auto) 0.5 Eos # (Auto) 0.0 Baso # (Auto) 0.0 WBC Differential . Differential Comment Auto diff final PT INR APTT Sodium 151 H Potassium 4.1 Chloride 115 H Carbon Dioxide 27.4 Anion Gap 9 BUN 34 H Creatinine 0.72 Estimated GFR Greater than 89 Random Glucose 103 Calcium 7.8 L Total Bilirubin AST ALT Alkaline Phosphatase Total Protein Albumin 03/20/18 03/20/18 05:29 09:00 WBC 18.5 H RBC 2.99 L Hgb 9.4 L Hct 27.8 L MCV 93.2 MCH 31.4 MCHC 33.6 RDW 13.9 Plt Count 221 MPV 10.1 Neut % (Auto) Lymph % (Auto) [place] % (Auto) Eos % (Auto) Baso % (Auto) Neut # (Auto) Lymph # (Auto) [place] # (Auto) Eos # (Auto) Baso # (Auto) WBC Differential Differential Comment PT INR APTT Sodium 150 H Potassium 4.2 Chloride 117 H Carbon Dioxide 25.1 Anion Gap 8 BUN 34 H Creatinine 0.88 Estimated GFR 83 L Random Glucose 136 H Calcium 7.9 L Total Bilirubin 1.4 H AST 66 H ALT 59 Alkaline Phosphatase 107 Total Protein 5.7 L D Albumin 1.7 L Result Diagrams: 03/20/18 09:00 03/20/18 05:29 Procedures: 03/12: Intubation Assessment and Plan - Disease Oriented Problem List (1) Major neurocognitive disorder as late effect of traumatic brain injury without behavioral disturbance Pertinent Non-Medical Issues: Psychosocial: The patient was born in [facility] where he his first and had one son. 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 The son states he was extremely talented, but very stubborn. He his first many years ago and had remarried , however his second has been for approximately 5 years. Spiritual: Not an important concept of the patient. Legal: No advance directives. Ethical issues impacting care: None noted. . Important Contacts: Son: Elvin Chu Prognosis: His prognosis is guarded per the loft rigger. Advanced age, time down without treatment, dehydration, exposure and brain trauma may leave him substantially disabled. Family has made him a DO NOT RESUSCITATE status as they feel his ongoing function will be severely limited, which would be unacceptable to the patient, and if no significant improvement occurs over the weekend, family is currently planning for withdrawal of life support on Sunday. . Code Status: Alternative Code (Continue intubation only. No CPR, shock or ACLS protocol drugs.) Plan: PLAN: Legal decision maker: Patient is obtunded, intubated and not capacitated for healthcare decision making. His son, Elvin would be the legal proxy decision- maker per [place] statutes. He states he is willing to serve. Goals: To be determined CODE STATUS: Alternative code, continue intubation, no CPR, no shock, no ACLS drugs. SYMPTOMS: * Encephalopathy-patient remains encephalopathic, obtunded with declining reflexes after head trauma. He has been off sedation for 7 days now and where as he was previously withdrawing to pain in all 4 extremities, he is only withdrawing to lower extremities today. During CPAP trial yesterday, he had an episode of apnea requiring return to a rate. * Pain-he is withdrawing to pain in lower extremities only, but is at risk for painful stimuli from bedbound status, invasive lines, head trauma. He is unable to make his needs known and remains at risk for discomfort. Pending arrival of his son tomorrow who states he plans to withdraw life support. If those plans change, he will require trach, PEG, placement. Palliative care will continue to follow the patient during hospital course as condition evolves, to assist patient/decision-maker with understanding of their medical conditions, weighing benefits/burdens of treatment options, for clarification of goals of treatment. Additionally will assist with any symptoms of palliative concern. . Attestation Attestation: To help prompt me to consider important information that might be impacting today's encounter and assessment, information from prior notes written by myself or my colleagues may have been "brought forward" into today's note. My signature on this note, however, is an attestation that I personally performed the exam, history, and/or decision-making noted today, and, unless otherwise indicated, the interactions with patient, family, and staff as well as the review of records all occurred today. I also attest that the listed assessment and stated plan reflect my best clinical judgment today based on the combination of historical information, prior notes, and today's exam/ interactions. When time spent is documented, it refers only to time spent today by the signer, or if indicated, combined time spent today by collaborating physician/nurse practitioner. .
--- NOTE | 2018-03-20 14:30 | P.PNNS ---
Subjective Interval history: 03/20: patient seen and examined during morning rounds. nursing reports this morning patient hypotensive with blood pressure in the 80's systolic, also noted blood in rectal tubing. <Karin Allen - Last Filed: 03/20/18 14:26> Physical Exam Vital signs: Vital Signs 03/19/18 14:40 03/19/18 15:00 03/19/18 16:00 Temperature 99.2 F 100.4 F H Pulse Rate 68 Respiratory Rate 16 23 Blood Pressure 125/61 Pulse Oximetry 96 95 03/19/18 18:00 03/19/18 19:36 03/19/18 20:00 Temperature 100.6 F H Pulse Rate 78 90 Respiratory Rate 27 H 28 H Blood Pressure 131/62 Pulse Oximetry 96 95 03/19/18 22:00 03/19/18 23:45 03/20/18 00:00 Temperature 98.9 F Pulse Rate 86 76 Respiratory Rate 17 Blood Pressure 116/58 L Pulse Oximetry 97 97 03/20/18 02:00 03/20/18 03:22 03/20/18 04:00 Temperature 100.7 F H Pulse Rate 84 97 H Respiratory Rate 26 H 26 H Blood Pressure 123/64 Pulse Oximetry 97 96 03/20/18 05:26 03/20/18 06:00 03/20/18 07:47 Temperature Pulse Rate 110 H Respiratory Rate 30 H 31 H Blood Pressure Pulse Oximetry 93 L 03/20/18 08:00 03/20/18 10:00 03/20/18 12:00 Temperature 100.0 F H 99.0 F Pulse Rate 104 H 96 H 96 H Respiratory Rate 24 21 Blood Pressure 90/51 L 107/56 L Pulse Oximetry 92 L 100 03/20/18 12:20 Temperature Pulse Rate Respiratory Rate 21 Blood Pressure Pulse Oximetry 99 Intake & Output 03/19/18 03/20/18 03/20/18 18:59 06:59 18:59 Intake Total 1380 / 1380 952 / 952 3500 / 3500 Output Total 500 / 500 900 / 900 Balance 880 / 880 52 / 52 3500 / 3500 Weight 78.6 kg Intake: IV 1100 / 1100 200 / 200 3500 / 3500 NS Inj 1,000 ML @ 1000 mls/hr 1000 / 1000 3000 / 3000 IV.CONT .Q1H [facility] Rx#:[id number] Ofirmev Inj 1,000 mg In 100 ml 100 / 100 200 / 200 @ 400 mls/hr IV.SIG Q6H PRN Rx# :[id number] NS Inj 500 ML @ As Directed IV. 500 / 500 SIG [facility]OL[facility] MEGHAN Rx#:[id number] Tube Feeding 250 / 250 752 / 752 Tube Irrigant 30 / 30 Output: Urine Amount (Catheter) 500 / 500 900 / 900 Indwelling Urethral Catheter 500 / 500 900 / 900 Other: Date of Last Bowel Movement 03/19/18 03/20/18 03/20/18 # Incontinent Bowel Movements 1 2 Narrative: GENERAL: Elderly male. Intubated. No sedative drips. SKIN: Warm and dry. HEAD: Normocephalic. EYES: No scleral icterus. No injection or drainage. NECK: Supple, trachea midline. No JVD or lymphadenopathy. CARDIOVASCULAR: Regular rate and rhythm, hypotensive currently with systolic in the 80's, bloody stools noted in rectal tubing. RESPIRATORY: mechanically ventilated. GASTROINTESTINAL: Abdomen soft, MUSCULOSKELETAL: No cyanosis, or edema. Neuro: No eye opening to verbal or pain stimuli. pupils 2 mm bilaterally. Conjugate gaze. Did not follow commands. minimal flexion response to LE's to noxious stimuli. No purposeful movements seen. - Urinary Catheter Management Indwelling Urethral Catheter Cath placed during this visit: yes Reason for continuing: Terminally ill/Comfort care Insertion date: 03/13/18 Insertion time: 03:00 <Karin Allen - Last Filed: 03/20/18 14:26> Vital signs: Vital Signs 03/21/18 13:26 03/21/18 14:00 03/21/18 16:00 Pulse Rate 130 H 120 H Respiratory Rate 26 H Pulse Oximetry 100 03/21/18 16:45 Pulse Rate Respiratory Rate 23 Pulse Oximetry 93 L Intake & Output 03/21/18 03/22/18 03/22/18 18:59 06:59 18:59 Other: Date of Last Bowel Movement 03/20/18 Narrative: GENERAL: Mr Chu is intubated. No sedative drips. SKIN: Warm and dry. HEAD: Normocephalic. EYES: No scleral icterus. No injection or drainage. NECK: Supple, trachea midline. No JVD or lymphadenopathy. CARDIOVASCULAR: Regular rate and rhythm, hypotensive currently with systolic in the 80's, bloody stools noted in rectal tubing. RESPIRATORY: mechanically ventilated. GASTROINTESTINAL: Abdomen soft, MUSCULOSKELETAL: No cyanosis, or edema. Neuro: No eye opening to verbal or pain stimuli. pupils 2 mm bilaterally. Conjugate gaze. Did not follow commands. minimal flexion response to LE's to noxious stimuli. No purposeful movements seen. - Urinary Catheter Management Indwelling Urethral Catheter Cath placed during this visit: no <Ry Marrero - Last Filed: 03/22/18 12:09> Assessment and Plan - Plan Assessment Elderly male TBI Cervical Spine CT 03/12/18 18:24 CONCLUSION: 1. No acute bony injury in the cervical spine. 2. Significant disc disease and degenerative spondylosis with fairly significant suspected canal stenosis in the lower cervical spine as described. Head MRI 03/13/18 00:00 CONCLUSION: 1. Interventricular hemorrhage with dilatation of the ventricles. 2. Subarachnoid hemorrhage. 3. Focal hemorrhage in the posterior right lateral midbrain with surrounding edema. This could be from the presumed fall. An underlying vascular lesion in this region could also be suspected. 4. Mild focal edema in the posterior left cerebellar hemisphere. 5. Suspected subgaleal hemorrhage or edema in the parietal scalp region. Head CT 03/14/18 00:00 CONCLUSION: 1. Persistent intraventricular, subarachnoid and right midbrain hemorrhage. 2. Persistent ventricular dilatation especially of the lateral ventricles. 3. Low density seen throughout the cerebral white matter likely from underlying small vessel ischemic change. Head CTA 03/14/18 00:00 CONCLUSION: 1. No aneurysm. Neck CTA 03/14/18 00:00 CONCLUSION: 1. Patent carotid arteries and vertebral arteries bilaterally. No aneurysm. CT Brain 03/12 There is a small volume of blood in the posterior horns of the lateral ventricles. minimal subarachnoid blood present in the posterior sylvian fissures bilaterally. A small hemorrhage is present in the quadrigeminal plate region asymmetric to the right. No evidence of significant brain shift. Plan: continues with poor neurological exam, no significant improvement dw nursing to place call to primary, 500 cc bolus NS now, and repeat CBC cont neuro checks palliative care following <Karin Allen - Last Filed: 03/20/18 14:26> - Plan As above e d Does not open eyes does not follow commands track or in any other way improve neurologically He developed maroon colored stool and clots with evidence of GI bleeding GI consult Awaiting arrival of family to decide further course of action. Patient truly should have a tracheostomy at this point if family pursues further care Continue neuro checks. Withdraws his left lower extremity Pulmonary: Continue aggressive pulmonary toilette, nasotracheal suction, and breathing treatments with nebulizers. PT and OT eval Renal: Continue to monitor closely urine output, BUN and creatinine Endocrine: Continue to Monitor serial Acu checks and SSI as needed in detail ID continue to monitor for signs of infection Continue Protonix for stress ulcer prophylaxis Continue Abhijeet hose and SCD's for DVT prophylaxis Discussed with the trauma surgeon. The exam, history, and the medical decision-making described in the above note were completed with the assistance of the mid-level provider. I reviewed and agree with the findings presented. I attest that I had a [id number] encounter with the patient on the same day, and personally performed and documented my assessment and findings in the medical record. <Ry Marrero - Last Filed: 03/22/18 12:09>
--- NOTE | 2018-03-20 17:25 | P.PNGI ---
Subjective Interval history: Patient remains in the intensive care on ventilator support nonresponsive GI monitoring any obvious bleeding and hemoglobin which has trended down today to 9.4. <Loreta Luu M - Last Filed: 03/20/18 17:25> Physical Exam Vital signs: Vital Signs 03/19/18 18:00 03/19/18 19:36 03/19/18 20:00 Temperature 100.6 F H Pulse Rate 78 90 Respiratory Rate 27 H 28 H Blood Pressure 131/62 Pulse Oximetry 96 95 03/19/18 22:00 03/19/18 23:45 03/20/18 00:00 Temperature 98.9 F Pulse Rate 86 76 Respiratory Rate 17 Blood Pressure 116/58 L Pulse Oximetry 97 97 03/20/18 02:00 03/20/18 03:22 03/20/18 04:00 Temperature 100.7 F H Pulse Rate 84 97 H Respiratory Rate 26 H 26 H Blood Pressure 123/64 Pulse Oximetry 97 96 03/20/18 05:26 03/20/18 06:00 03/20/18 07:47 Temperature Pulse Rate 110 H Respiratory Rate 30 H 31 H Blood Pressure Pulse Oximetry 93 L 03/20/18 08:00 03/20/18 10:00 03/20/18 12:00 Temperature 100.0 F H 99.0 F Pulse Rate 104 H 96 H 96 H Respiratory Rate 24 21 Blood Pressure 90/51 L 107/56 L Pulse Oximetry 92 L 100 03/20/18 12:20 03/20/18 14:00 03/20/18 16:00 Temperature 99.4 F Pulse Rate 100 H 109 H Respiratory Rate 21 29 H Blood Pressure 114/68 Pulse Oximetry 99 98 03/20/18 16:37 Temperature Pulse Rate Respiratory Rate 24 Blood Pressure Pulse Oximetry 99 Intake & Output 03/19/18 03/20/18 03/20/18 18:59 06:59 18:59 Intake Total 1380 / 1380 952 / 952 3500 / 3500 Output Total 500 / 500 900 / 900 Balance 880 / 880 52 / 52 3500 / 3500 Weight 78.6 kg Intake: IV 1100 / 1100 200 / 200 3500 / 3500 NS Inj 1,000 ML @ 1000 mls/hr 1000 / 1000 3000 / 3000 IV.CONT .Q1H [facility] Rx#:[id number] Ofirmev Inj 1,000 mg In 100 ml 100 / 100 200 / 200 @ 400 mls/hr IV.SIG Q6H PRN Rx# :[id number] NS Inj 500 ML @ As Directed IV. 500 / 500 SIG BOLUS [facility] Rx#:[id number] Tube Feeding 250 / 250 752 / 752 Tube Irrigant 30 / 30 Output: Urine Amount (Catheter) 500 / 500 900 / 900 Indwelling Urethral Catheter 500 / 500 900 / 900 Other: Date of Last Bowel Movement 03/19/18 03/20/18 03/20/18 # Incontinent Bowel Movements 1 2 - Constitutional no acute distress, thin, cachectic - Routine HEENT Exam ENT: Present: mucous membranes moist - Routine Respiratory Exam Present: patient mechanically ventilated - Routine Abdominal Exam Present: soft (Round,, bowel sounds present) - Urinary Catheter Management Indwelling Urethral Catheter Cath placed during this visit: yes Reason for continuing: Terminally ill/Comfort care Insertion date: 03/13/18 Insertion time: 03:00 <Loreta Luu - Last Filed: 03/20/18 17:25> Vital signs: Vital Signs 03/20/18 07:47 03/20/18 08:00 03/20/18 10:00 Temperature 100.0 F H Pulse Rate 104 H 96 H Respiratory Rate 31 H 24 Blood Pressure 90/51 L Pulse Oximetry 93 L 92 L 03/20/18 12:00 03/20/18 12:20 03/20/18 14:00 Temperature 99.0 F Pulse Rate 96 H 100 H Respiratory Rate 21 21 Blood Pressure 107/56 L Pulse Oximetry 100 99 03/20/18 16:00 03/20/18 16:37 03/20/18 18:00 Temperature 99.4 F Pulse Rate 109 H 120 H Respiratory Rate 29 H 24 Blood Pressure 114/68 Pulse Oximetry 98 99 03/20/18 20:00 03/20/18 20:10 03/20/18 22:00 Temperature 99.0 F Pulse Rate 93 H 104 H Respiratory Rate 22 25 H Blood Pressure 108/80 Pulse Oximetry 99 100 03/21/18 00:00 03/21/18 00:24 03/21/18 02:00 Temperature 101.0 F H Pulse Rate 103 H 106 H Respiratory Rate 26 H 24 Blood Pressure 113/60 Pulse Oximetry 100 99 03/21/18 03:03 03/21/18 03:18 03/21/18 04:00 Temperature 98.1 F Pulse Rate 108 H Respiratory Rate 25 H 24 29 H Blood Pressure 119/62 Pulse Oximetry 96 03/21/18 04:15 03/21/18 06:00 Temperature Pulse Rate 83 Respiratory Rate 26 H Blood Pressure Pulse Oximetry 99 Intake & Output 03/20/18 03/21/18 03/21/18 18:59 06:59 18:59 Intake Total 4122 / 4122 1730 / 1730 Output Total 700 / 700 600 / 600 Balance 3422 / 3422 1130 / 1130 Weight 79.9 kg Intake: IV 3500 / 3500 1100 / 1100 NS Inj 1,000 ML @ 80 mls/hr IV. 3000 / 3000 1000 / 1000 CONT .[id number] [facility] Rx#:[id number] Ofirmev Inj 1,000 mg In 100 ml 100 / 100 @ 400 mls/hr IV.SIG Q6H PRN Rx# :[id number] NS Inj 500 ML @ As Directed IV. 500 / 500 SIG BOLUS [facility] Rx#:[id number] Tube Feeding 622 / 622 510 / 510 Tube Irrigant 120 / 120 Output: Stool 50 / 50 Urine Amount (Catheter) 700 / 700 550 / 550 Indwelling Urethral Catheter 700 / 700 550 / 550 Other: Date of Last Bowel Movement 03/20/18 03/20/18 # Bowel Movements 3 - Urinary Catheter Management Indwelling Urethral Catheter Cath placed during this visit: no <Raf Tapia A - Last Filed: 03/21/18 07:09> Results - Labs CBC & Chem 7: 03/20/18 09:00 03/20/18 05:29 Laboratory Results - last 24 hr 03/20/18 03/20/18 03/20/18 05:29 05:29 09:00 WBC 16.5 H 18.5 H RBC 3.64 L 2.99 L Hgb 11.3 L 9.4 L Hct 33.9 L 27.8 L MCV 93.1 93.2 MCH 31.1 31.4 MCHC 33.4 33.6 RDW 14.0 13.9 Plt Count 254 D 221 MPV 9.7 10.1 Neut % (Auto) 94.5 H Lymph % (Auto) 2.3 L [place] % (Auto) 2.8 Eos % (Auto) 0.2 Baso % (Auto) 0.2 Neut # (Auto) 15.6 H Lymph # (Auto) 0.4 L [place] # (Auto) 0.5 Eos # (Auto) 0.0 Baso # (Auto) 0.0 WBC Differential . Differential Comment Auto diff final Sodium 150 H Potassium 4.2 Chloride 117 H Carbon Dioxide 25.1 Anion Gap 8 BUN 34 H Creatinine 0.88 Estimated GFR 83 L Random Glucose 136 H Calcium 7.9 L Total Bilirubin 1.4 H AST 66 H ALT 59 Alkaline Phosphatase 107 Total Protein 5.7 L D Albumin 1.7 L <Loreta Luu - Last Filed: 03/20/18 17:25> - Labs CBC & Chem 7: 03/21/18 03:37 03/21/18 03:37 Laboratory Results - last 24 hr 03/20/18 03/21/18 03/21/18 09:00 03:37 03:37 WBC 18.5 H 17.6 H RBC 2.99 L 2.83 L Hgb 9.4 L 8.8 L Hct 27.8 L 26.4 L MCV 93.2 93.3 MCH 31.4 31.0 MCHC 33.6 33.3 RDW 13.9 14.2 Plt Count 221 260 MPV 10.1 9.3 Neut % (Auto) 91.7 H Lymph % (Auto) 3.0 L [place] % (Auto) 5.1 Eos % (Auto) 0.1 Baso % (Auto) 0.1 Neut # (Auto) 16.1 H Lymph # (Auto) 0.5 L [place] # (Auto) 0.9 Eos # (Auto) 0.0 Baso # (Auto) 0.0 WBC Differential . Differential Comment Auto diff final Sodium 154 H Potassium 4.1 Chloride 120 H Carbon Dioxide 23.5 Anion Gap 11 BUN 42 H Creatinine 0.93 Estimated GFR 78 L Random Glucose 150 H Calcium 7.9 L Total Bilirubin 0.8 AST 77 H ALT 49 Alkaline Phosphatase 81 Total Protein 5.4 L Albumin 1.6 L - Imaging Impressions Chest X-Ray 03/21/18 06:00 CONCLUSION: Increased airspace consolidation at the left lung base and stable right basilar opacity. <Raf Tapia - Last Filed: 03/21/18 07:09> Assessment and Plan (1) Rectal bleeding Status: Acute Code(s): K62.5 - Hemorrhage of anus and rectum - Plan 82-year-old male currently in the intensive care setting since 03/12/2018 post trauma. Patient is intubated and has oral NG tube now connected to low intermittent suction. There is bilious fluid being obtained but no obvious blood. Junior catheter shows orange clear urine and IV fluids are at 80 cc an hour Palliative care has a meeting set up according to the staff and record today to discuss further options as patient has severe brain injury and no chance of meaningful recovery according to the record. Rectal bleeding, first known event this admission which could be related to hemorrhoid versus diverticular bleed since blood was red. Patient had been on heparin subcu which is now being held. Within the past 8 hours there is been no obvious rectal bleeding noted. Gastroenterology has been consulted to assist with any appropriate needs and plan of care. 03/19/2018 patient remains in the intensive care on ventilator management. Patient has no obvious rectal bleeding today but there was noted an occasional smear when wiping are assisting with bowel movements. There is no family present but nurse updated that there are family members coming in from out of town this coming . Heparin remains on hold. Patient has oral gastric tube intact for feedings or suction as warranted. GI will be on board to monitor any acute changes in rectal bleeding, currently the plan is to observe. 03/20/2018, hemoglobin has trended down from 11.3-9.4, patient remains in the intensive care setting nonresponsive and on ventilator support. Gastroenterology is monitoring hemoglobin and waiting on family members which are supposed to arrive tomorrow from out of state. Currently patient condition is essentially unchanged, no procedures planned, will monitor palliative care's input for wishes of the family members and dependent on patient's stability. Plan NG tube Monitor rectal bleeding Monitor hemoglobin Zofran Pepcid Supportive care Patient was seen per myself and Dr. Tapia, note was written on his behalf <Loreta Luu - Last Filed: 03/20/18 17:25> (1) Rectal bleeding Status: Acute Code(s): K62.5 - Hemorrhage of anus and rectum - Attending Attestation As above, still critical at this time. Will follow up with you periodically. <Raf Tapia - Last Filed: 03/21/18 07:09>
[2018-03-21] MEDS: Oral Hygiene Kit OROPHARYNG SCH ×3 (00:07→12:34)
[2018-03-21] MEDS: Sod Chloride 0.9% Inj 1,000 ML IV.CONT SCH (03:00)
[2018-03-21 03:58] LABS: Baso % (Auto) 0.1 % (0.0-2.0); Eos % (Auto) 0.1 % (0.0-4.0); Hematocrit 26.4 % (39.0-51.0); Hemoglobin 8.8 gm/dL (13.0-17.0); Lymph # (Auto) 0.5 th/mm3 (1.0-4.8); Mean Corpuscular HGB Conc 33.3 % (32.0-36.0); Mean Corpuscular Volume 93.3 fL (80.0-100.0); Mean Platelet Volume 9.3 fL (7.0-11.0); Mono # (Auto) 0.9 th/mm3 (0.0-0.9); Mono % (Auto) 5.1 % (0.0-8.0); Neut # (Auto) 16.1 th/mm3 (1.8-7.7); Neut % (Auto) 91.7 % (16.0-70.0); Platelet Count 260 th/mm3 (150-450); Red Blood Count 2.83 mil/mm3 (4.50-5.90); Red Cell Distribution Width 14.2 % (11.6-17.2); White Blood Count 17.6 th/mm3 (4.0-11.0)
[2018-03-21 04:43] LABS: Alanine Aminotransferase 49 U/L (12-78); Albumin 1.6 g/dL (3.4-5.0); Anion Gap 11 meq/L (5-15); Aspartate Aminotransferase 77 U/L (15-37); Blood Urea Nitrogen 42 mg/dL (7-18); Calcium 7.9 mg/dL (8.5-10.1); Carbon Dioxide 23.5 meq/L (21.0-32.0); Chloride 120 meq/L (98-107); Glomerular Filtration Rate 78 mL/min (>89); Glucose,Random 150 mg/dL (74-106); Potassium 4.1 meq/L (3.5-5.1); Sodium 154 meq/L (136-145)
[2018-03-21 04:45] LABS: Alkaline Phosphatase 81 U/L (45-117); Total Protein 5.4 g/dL (6.4-8.2)
--- NOTE | 2018-03-21 05:49 | XR ---
EXAM DATE: 03/21/2018 5:30 AM EDT AGE/SEX: 82 years / Male INDICATIONS: Shortness of breath. CLINICAL DATA: This is the patient's subsequent encounter. Patient reports that signs and symptoms h ave been present for 1 week and indicates a pain score of Nonresponsive. MEDICAL/SURGICAL HISTORY: Non-responsive. Non-responsive. COMPARISON: [facility] [place], CHEST 1V SINGLE AP, 03/19/2018. . FINDINGS: Portable AP view of the chest demonstrates a normal-sized cardiac silhouette. Median sternotomy wires are present and EKG lines overlie the patient. 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 ETT is prese nt with tip at the aortic knob level and nasogastric tube courses beyond the GE junction. There is bi lateral lower lung zone airspace consolidation, left greater than right. No pneumothorax is identifie d. CONCLUSION: Increased airspace consolidation at the left lung base and stable right basilar opacity. Electronically signed by: Antoni Martinez MD 03/21/2018 5:48 AM EDT
[2018-03-21] MEDS: Propranolol 10 MG Tablet PO SCH (06:12)
[2018-03-21] MEDS: Famotidine PF Inj 20 MG/2 ML Vial IV.PUSH SCH (09:26)
[2018-03-21] MEDS: Chlorhexidine 0.12% Oral Kit 15 ML UDC OROPHARYNG SCH (09:26)
[2018-03-21] MEDS: Senna/Docusate Sodium 8.6/50 MG Tablet PO SCH (09:46)
--- NOTE | 2018-03-21 11:43 | P.PNCC ---
Subjective Brief History: Elderly gentleman found under a ladder and presumably fell off the ladder sometimes with the last 24 hours. Patient was transferred to our institution as priority 1 trauma alert and on arrival patient is Linwood coma scale of about 4-5 moving some. Patient was intubated ventilated The patient underwent laboratory and diagnostic workup. After resuscitation, was found to have intracranial hemorrhage with small area of contusion on the right and then a small area of concentrated bleeding in the quadrigeminal plate. No other injuries are noted. The patient has bilateral severe hydronephrosis and parapelvic renal cysts that can be evaluated at a different time. At this point, I am not sure if the patient fell off the ladder and sustained injuries or perhaps he had a stroke in the quadrigeminal area, which is hemorrhagic and then fell off the ladder. Either way, patient is taken care of in the ICU. Appropriate services are consulted. 24 Hour Review/Hospital Course: 03/13 Sedated on small dose of Versed throughout the night which has been discontinued this morning At this point awaiting to see patients reaction to discontinuation of sedation however he is opening his eyes and fluttering eyelids but otherwise no responding to any verbal or tactile stimuli Withdraws to pain Linwood Coma Scale about 5E Hemodynamically patient stable Bilateral good breath sounds good PO2 FiO2 gradient on 35% FiO2 assist control mode ventilation Renal function preserved Discuss further with Dr. Marrero and will go ahead with MRI of the brain and based on the findings decide which way to go 03/14 off sedation today-patient's eyes are open, he is not following commands however withdrawing to pain Neuro status clearly improved He remains hemodynamically normal with adequate urine output He is slightly hypertensive, will start him on oral propranolol CT of the neck vessels have been negative-however he may have had bleeding secondary existing aneurysm-we will proceed with a CTA of the head 03/15 On today's exam patient's are not open according to RN he follows commands at times very sluggishly He CTA shows no aneurysm the CT of the head is essentially stable His urine output is marginal is mildly dehydrated so he will receive 1 L of normal saline bolus Patient is on propranolol and clonidine so that will DC clonidine but keep propranolol in case hypertensive will managed with Norvasc, clonidine may potentially contribute to suppress mental status palliative care has been consulted for the goals of care as 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 03/16/2018 Neurologically patient is unchanged Patient is occasionally withdrawing to pain and according to the nurse he followed some commands with upper extremities but I have not seen this Does not open eyes does not track On my exam patient is withdrawing to pain and that is about it Linwood Coma Scale therefore is 5 Hemodynamically remained stable Hypertension managed successfully Bilateral breath sounds on AC control ventilation with good PO2 FiO2 gradient Abdomen soft enteral feeds tolerated This patient is 82-year-old and has a very poor prognosis in the face of his injuries and his best case scenario will end up in a halfway bedridden and unable to take care of himself. There is no chance of functional recovery at this time. This is apparently been discussed by case management with his son and he is contemplating withdrawal of care 03/17/2018 No change in neurologic status Patient withdraws to pain a little bit but that is about it does not open eyes does not track or follow commands He is off all the sedation for the last 3 days No chance of functional neurological recovery at this time based on the injury and age Hemodynamically stable although patient had a period of bradycardia. 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 Hemodynamically stable Bilateral breath sounds remains on assist control ventilation with good PO2 FiO2 gradient Abdomen is soft hypoactive bowel sounds Yesterday afternoon patient had some clots and bright red blood per rectum and feedings have been stopped His most likely diverticular bleed yet patient may have unrecognized other pathology in the known to us Gastroenterology consulted to evaluate the patient Hemoglobin and coagulation studies remain stable 03/19/2018 Neurologically patient is unchanged he is off all the sedation for now for many days however the only activity patient displaces withdrawal to pain Does not open eyes does not follow commands track or in any other way improve neurologically Hugo Coma Scale 4-5 Hemodynamically stable Hemoglobin remains stable despite one episode of maroon colored stool and clots GI consult greatly appreciated Bilateral breath sounds remains on assist control relation with good PO2 FiO2 gradient Patient truly should have a tracheostomy at this point if family pursues further care Apparently son is coming to town in the next few days to make the decision whether to pursue further care or allow withdrawal of care As noted previously this patient has no chance of meaningful recovery and in best case scenario will remain with tracheostomy and feeding tube in a halfway setting 03/20/2018 Patient's clinical exam remains unchanged. He is withdrawing left lower extremity only with no spontaneous movement. Patient is a modified code because he is intubated. Awaiting arrival of family to decide further course of action. His hemoglobin is stable at 8.8 following 2 units of packed cells. 03/21/2018 No change in patient's clinical picture. Son is to arrive today and we will discuss further course of action The plan will be to either withdraw care or initiate long-term placement following tracheostomy and feeding tube placement Objective Vital Signs / I&O: Vital Signs 03/20/18 12:00 03/20/18 12:20 03/20/18 14:00 Temperature 99.0 F Pulse Rate 96 H 100 H Respiratory Rate 21 21 Blood Pressure 107/56 L Pulse Oximetry 100 99 03/20/18 16:00 03/20/18 16:37 03/20/18 18:00 Temperature 99.4 F Pulse Rate 109 H 120 H Respiratory Rate 29 H 24 Blood Pressure 114/68 Pulse Oximetry 98 99 03/20/18 20:00 03/20/18 20:10 03/20/18 22:00 Temperature 99.0 F Pulse Rate 93 H 104 H Respiratory Rate 22 25 H Blood Pressure 108/80 Pulse Oximetry 99 100 03/21/18 00:00 03/21/18 00:24 03/21/18 02:00 Temperature 101.0 F H Pulse Rate 103 H 106 H Respiratory Rate 26 H 24 Blood Pressure 113/60 Pulse Oximetry 100 99 03/21/18 03:03 03/21/18 03:18 03/21/18 04:00 Temperature 98.1 F Pulse Rate 108 H Respiratory Rate 25 H 24 29 H Blood Pressure 119/62 Pulse Oximetry 96 03/21/18 04:15 03/21/18 06:00 03/21/18 08:00 Temperature 98.1 F Pulse Rate 83 86 Respiratory Rate 26 H 19 Blood Pressure 108/59 L Pulse Oximetry 99 97 03/21/18 08:47 03/21/18 10:00 Temperature Pulse Rate 112 H Respiratory Rate 20 Blood Pressure Pulse Oximetry 99 Intake & Output 03/20/18 03/21/18 03/21/18 18:59 06:59 18:59 Intake Total 4122 / 4122 1730 / 1730 Output Total 700 / 700 600 / 600 Balance 3422 / 3422 1130 / 1130 Weight 79.9 kg Intake: IV 3500 / 3500 1100 / 1100 NS Inj 1,000 ML @ 80 mls/hr IV. 3000 / 3000 1000 / 1000 CONT .[id number] [facility] Rx#:[id number] Ofirmev Inj 1,000 mg In 100 ml 100 / 100 @ 400 mls/hr IV.SIG Q6H PRN Rx# :[id number] NS Inj 500 ML @ As Directed IV. 500 / 500 SIG BOLUS [facility] Rx#:[id number] Tube Feeding 622 / 622 510 / 510 Tube Irrigant 120 / 120 Output: Stool 50 / 50 Urine Amount (Catheter) 700 / 700 550 / 550 Indwelling Urethral Catheter 700 / 700 550 / 550 Other: Date of Last Bowel Movement 03/20/18 03/20/18 03/20/18 # Bowel Movements 3 Result Diagrams: 03/21/18 03:37 03/21/18 03:37 Imaging: Impressions Chest X-Ray 03/21/18 06:00 CONCLUSION: Increased airspace consolidation at the left lung base and stable right basilar opacity. 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: Withdraws to noxious stimuli on left lower extremity only, no spontaneous movement or eye opening Hemodynamic/Cardiac: Regular rate and rhythm Pulmonary/Respiratory: Clear to auscultation bilaterally Abdomen/GI Nutrition: Soft nontender nondistended no active GI bleed Renal/I&O: Adequate urine output, elevated BUN Assessment and Plan Plan: Patient is currently stable from a GI bleed standpoint Continue full ventilator support Continue nutritional support Mechanical DVT prophylaxis only, hold off on chemical prophylaxis due to recent GI bleed Son is to arrive today and will discuss further course of action
[2018-03-21] MEDS: fentaNYL Citrate Inj 100 MCG/2 ML Ampul IV.PUSH PRN (12:27)
[2018-03-21 12:38] VITALS: BP 123/64; TEMP 98.3
--- NOTE | 2018-03-21 13:14 | P.PNPAL ---
Reason for Visit Reason for visit: a. To assist with evaluation and management of symptoms including: Encephalopathy, pain b. To assist medical decision maker(s) with: better understanding of current medical conditions; weighing benefits/burdens of medical treatment options; making medical treatment decisions. Subjective Subjective/Interval History: Patient visit today is medically necessary for evaluation of symptom management of encephalopathy and pain and goals of medical treatment. He has been off sedation since 03/13 and remains encephalopathic AEB his only response being withdrawal to pain in the lower extremities. He does not follow commands. He does not open his eyes spontaneously to voice or noxious stimuli. Nurses reported that with turning and repositioning he has opened his eyes spontaneously once but did not focus or track. White blood cell count is elevated at 17.6, hemoglobin continues to slowly decline, at 8.8 today. T-max today 101.0. He is unable to quantify or qualify the pain, however, he is seen to grimace slightly with noxious or loud verbal stimuli. No central withdrawal from pain, no withdrawal from pain in upper extremities. He received 50 mcg of IV fentanyl today for occasional grimace. He is receiving Ofirmev for pain and fever. There has been no significant improvement or recovery since admission. . Family/Friend Interactions: Spoke with his son, Americo, at bedside who came from [place] to visit his father. He states that his father would not be tolerant or appreciative of further interventions to prolong his life, given the poor quality of life that he would have. He states his father would not want to be kept alive on machines unable to live an active life. He has chosen compassionate withdrawal of ventilator support over proceeding with trach/PEG/placement. This was discussed with trauma surgeon, Dr. Wilson and consulting physician, Dr. Schneider, who both agree that he has no chance of meaningful recovery and at the family's request would signed consents for withdrawal of life support. Family has decided they do not wish to be present for the extubation but instead remember him as he was. Shaper Operator support was offered but declined. . Advance Directives Living Will: Never completed Health Care Surrogate: Never completed Durable Power of Barrel Straightener: Never completed Objective Vital Signs: Vital Signs 03/20/18 14:00 03/20/18 16:00 03/20/18 16:37 Temperature 99.4 F Pulse Rate 100 H 109 H Respiratory Rate 29 H 24 Blood Pressure 114/68 Pulse Oximetry 98 99 03/20/18 18:00 03/20/18 20:00 03/20/18 20:10 Temperature 99.0 F Pulse Rate 120 H 93 H Respiratory Rate 22 25 H Blood Pressure 108/80 Pulse Oximetry 99 100 03/20/18 22:00 03/21/18 00:00 03/21/18 00:24 Temperature 101.0 F H Pulse Rate 104 H 103 H Respiratory Rate 26 H 24 Blood Pressure 113/60 Pulse Oximetry 100 99 03/21/18 02:00 03/21/18 03:03 03/21/18 03:18 Temperature Pulse Rate 106 H Respiratory Rate 25 H 24 Blood Pressure Pulse Oximetry 03/21/18 04:00 03/21/18 04:15 03/21/18 06:00 Temperature 98.1 F Pulse Rate 108 H 83 Respiratory Rate 29 H 26 H Blood Pressure 119/62 Pulse Oximetry 96 99 03/21/18 08:00 03/21/18 08:47 03/21/18 10:00 Temperature 98.1 F Pulse Rate 86 112 H Respiratory Rate 19 20 Blood Pressure 108/59 L Pulse Oximetry 97 99 03/21/18 12:00 Temperature 98.3 F Pulse Rate 119 H Respiratory Rate 30 H Blood Pressure 123/64 Pulse Oximetry 98 Intake & Output 03/20/18 03/21/18 03/21/18 18:59 06:59 18:59 Intake Total 4122 / 4122 1730 / 1730 Output Total 700 / 700 600 / 600 Balance 3422 / 3422 1130 / 1130 Weight 176 lb 2.389 oz Intake: IV 3500 / 3500 1100 / 1100 NS Inj 1,000 ML @ 80 mls/hr IV. 3000 / 3000 1000 / 1000 CONT .[id number] MEGHAN Rx#:[id number] Ofirmev Inj 1,000 mg In 100 ml 100 / 100 @ 400 mls/hr IV.SIG Q6H PRN Rx# :[id number] NS Inj 500 ML @ As Directed IV. 500 / 500 SIG BOLUS MEGHAN Rx#:[id number] Tube Feeding 622 / 622 510 / 510 Tube Irrigant 120 / 120 Output: Stool 50 / 50 Urine Amount (Catheter) 700 / 700 550 / 550 Indwelling Urethral Catheter 700 / 700 550 / 550 Other: Date of Last Bowel Movement 0903/20/18 03/20/18 # Bowel Movements 3 Physical Exam: CONSTITUTIONAL/GENERAL: This is an adequately nourished patient, intubated, not sedated, in no apparent distress. TUBES/LINES/DRAINS: PIV LFA, right wrist HEAD: Small posterior head wound. Normocephalic. EYES: Pupils equal and round and reactive. No scleral icterus. No injection or drainage. Fundi not examined. ENT: Nose without bleeding or purulent drainage. Orally intubated. CARDIOVASCULAR: Regular rate and rhythm without murmurs, gallops, or rubs. No JVD. Peripheral pulses symmetric. RESPIRATORY/CHEST: Symmetric, unlabored respirations. Clear to auscultation. Breath sounds equal bilaterally. No wheezes, rales, or rhonchi. GASTROINTESTINAL: Abdomen soft, nondistended. NG tube to low intermittent wall suction, bowel sounds present. GENITOURINARY: Without palpable bladder distension. Junior catheter in place. MUSCULOSKELETAL: Extremities without clubbing, cyanosis, or edema. No effusion noted. No mottling or clubbing. NEUROLOGICAL: Obtunded, withdrawing to painful stimuli today in lower extremities only, unreliable minimal plantar flexion response, not opening eyes , focusing or tracking. PSYCHIATRIC: Obtunded. . Diagnostic Tests Laboratory: Laboratory Results - last 72 hr 03/19/18 03/19/18 03/20/18 04:07 04:07 05:29 WBC 8.8 16.5 H RBC 3.39 L 3.64 L Hgb 10.8 L 11.3 L Hct 31.7 L 33.9 L MCV 93.4 93.1 MCH 31.8 31.1 MCHC 34.1 33.4 RDW 13.9 14.0 Plt Count 148 L 254 D MPV 10.1 9.7 Neut % (Auto) 94.5 H Lymph % (Auto) 2.3 L [place] % (Auto) 2.8 Eos % (Auto) 0.2 Baso % (Auto) 0.2 Neut # (Auto) 15.6 H Lymph # (Auto) 0.4 L [place] # (Auto) 0.5 Eos # (Auto) 0.0 Baso # (Auto) 0.0 WBC Differential . Differential Comment Auto diff final Sodium 151 H Potassium 4.1 Chloride 115 H Carbon Dioxide 27.4 Anion Gap 9 BUN 34 H Creatinine 0.72 Estimated GFR Greater than 89 Random Glucose 103 Calcium 7.8 L Total Bilirubin AST ALT Alkaline Phosphatase Total Protein Albumin 03/20/18 03/20/18 03/21/18 05:29 09:00 03:37 WBC 18.5 H 17.6 H RBC 2.99 L 2.83 L Hgb 9.4 L 8.8 L Hct 27.8 L 26.4 L MCV 93.2 93.3 MCH 31.4 31.0 MCHC 33.6 33.3 RDW 13.9 14.2 Plt Count 221 260 MPV 10.1 9.3 Neut % (Auto) 91.7 H Lymph % (Auto) 3.0 L [place] % (Auto) 5.1 Eos % (Auto) 0.1 Baso % (Auto) 0.1 Neut # (Auto) 16.1 H Lymph # (Auto) 0.5 L [place] # (Auto) 0.9 Eos # (Auto) 0.0 Baso # (Auto) 0.0 WBC Differential . Differential Comment Auto diff final Sodium 150 H Potassium 4.2 Chloride 117 H Carbon Dioxide 25.1 Anion Gap 8 BUN 34 H Creatinine 0.88 Estimated GFR 83 L Random Glucose 136 H Calcium 7.9 L Total Bilirubin 1.4 H AST 66 H ALT 59 Alkaline Phosphatase 107 Total Protein 5.7 L D Albumin 1.7 L 03/21/18 03:37 WBC RBC Hgb Hct MCV MCH MCHC RDW Plt Count MPV Neut % (Auto) Lymph % (Auto) [place] % (Auto) Eos % (Auto) Baso % (Auto) Neut # (Auto) Lymph # (Auto) [place] # (Auto) Eos # (Auto) Baso # (Auto) WBC Differential Differential Comment Sodium 154 H Potassium 4.1 Chloride 120 H Carbon Dioxide 23.5 Anion Gap 11 BUN 42 H Creatinine 0.93 Estimated GFR 78 L Random Glucose 150 H Calcium 7.9 L Total Bilirubin 0.8 AST 77 H ALT 49 Alkaline Phosphatase 81 Total Protein 5.4 L Albumin 1.6 L Result Diagrams: 03/21/18 03:37 03/21/18 03:37 Procedures: 03/12: Intubation Assessment and Plan - Disease Oriented Problem List (1) Major neurocognitive disorder as late effect of traumatic brain injury without behavioral disturbance Pertinent Non-Medical Issues: Psychosocial: The patient was born in [facility] where he his first and had one son. 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 The son states he was extremely talented, but very stubborn. He his first many years ago and had remarried , however his second has been for approximately 5 years. Spiritual: Not an important concept of the patient. Legal: No advance directives. Ethical issues impacting care: None noted. . Important Contacts: Son: Elvin Chu Prognosis: His prognosis is guarded per the experimental welder. Advanced age, time down without treatment, dehydration, exposure and brain trauma may leave him substantially disabled. Family has made him a DO NOT RESUSCITATE status as they feel his ongoing function will be severely limited, which would be unacceptable to the patient, and if no significant improvement occurs over the weekend, family is currently planning for withdrawal of life support on Sunday. . Code Status: Alternative Code (Continue intubation only. No CPR, shock or ACLS protocol drugs.) Plan: PLAN: Legal decision maker: Patient is obtunded, intubated and not capacitated for healthcare decision making. His son, Elvin would be the legal proxy decision- maker per [place] statutes. He states he is willing to serve. Goals: To be determined CODE STATUS: Alternative code, continue intubation, no CPR, no shock, no ACLS drugs. SYMPTOMS: * Encephalopathy-patient remains encephalopathic, obtunded with declining reflexes after head trauma. He has been off sedation for 7 days now and where as he was previously withdrawing to pain in all 4 extremities, he is only withdrawing to lower extremities today. During CPAP trials, he has episodes of apnea requiring return to a rate. * Pain-he is withdrawing to pain in lower extremities only, but is at risk for painful stimuli from bedbound status, invasive lines, head trauma. He is unable to make his needs known and remains at risk for discomfort. His son has decided for compassionate withdrawal from ventilator support. Planned for later today. Palliative care will continue to follow the patient during hospital course as condition evolves, to assist patient/decision-maker with understanding of their medical conditions, weighing benefits/burdens of treatment options, for clarification of goals of treatment. Additionally will assist with any symptoms of palliative concern. . Attestation Attestation: To help prompt me to consider important information that might be impacting today's encounter and assessment, information from prior notes written by myself or my colleagues may have been "brought forward" into today's note. My signature on this note, however, is an attestation that I personally performed the exam, history, and/or decision-making noted today, and, unless otherwise indicated, the interactions with patient, family, and staff as well as the review of records all occurred today. I also attest that the listed assessment and stated plan reflect my best clinical judgment today based on the combination of historical information, prior notes, and today's exam/ interactions. When time spent is documented, it refers only to time spent today by the signer, or if indicated, combined time spent today by collaborating physician/nurse practitioner. .
[2018-03-21] MEDS ORDERED: Morphine Inj 4 MG/ML Vial IV.PUSH PRN ×2 (14:47)
[2018-03-21] MEDS ORDERED: Hyoscyamine Inj 0.5 MG/ML Ampul IV.PUSH ONE (14:47)
[2018-03-21] MEDS ORDERED: Acetaminophen 650 MG Supp RECTAL PRN (14:47)
[2018-03-21] MEDS ORDERED: Morphine Inj 4 MG/ML Vial IV.PUSH ONE ×2 (14:47)
[2018-03-21] MEDS ORDERED: Bisacodyl 10 MG Supp RECTAL PRN (14:47)
[2018-03-21] MEDS ORDERED: Hyoscyamine Inj 0.5 MG/ML Ampul IV.PUSH PRN (15:00)
[2018-03-21] MEDS ORDERED: Morphine Inj 4 MG/ML Vial IV.PUSH SCH (16:00)
[2018-03-21 16:05] VITALS: PULSE 120
--- NOTE | 2018-03-21 16:47 | P.PNNS ---
Subjective Interval history: 03/21: no neuro changes or improvements overnight Physical Exam Vital signs: Vital Signs 03/20/18 18:00 03/20/18 20:00 03/20/18 20:10 Temperature 99.0 F Pulse Rate 120 H 93 H Respiratory Rate 22 25 H Blood Pressure 108/80 Pulse Oximetry 99 100 03/20/18 22:00 03/21/18 00:00 03/21/18 00:24 Temperature 101.0 F H Pulse Rate 104 H 103 H Respiratory Rate 26 H 24 Blood Pressure 113/60 Pulse Oximetry 100 99 03/21/18 02:00 03/21/18 03:03 03/21/18 03:18 Temperature Pulse Rate 106 H Respiratory Rate 25 H 24 Blood Pressure Pulse Oximetry 03/21/18 04:00 03/21/18 04:15 03/21/18 06:00 Temperature 98.1 F Pulse Rate 108 H 83 Respiratory Rate 29 H 26 H Blood Pressure 119/62 Pulse Oximetry 96 99 03/21/18 08:00 03/21/18 08:47 03/21/18 10:00 Temperature 98.1 F Pulse Rate 86 112 H Respiratory Rate 19 20 Blood Pressure 108/59 L Pulse Oximetry 97 99 03/21/18 12:00 03/21/18 13:26 03/21/18 14:00 Temperature 98.3 F Pulse Rate 119 H 130 H Respiratory Rate 30 H 26 H Blood Pressure 123/64 Pulse Oximetry 98 100 03/21/18 16:00 Temperature Pulse Rate 120 H Respiratory Rate Blood Pressure Pulse Oximetry Intake & Output 03/20/18 03/21/18 03/21/18 18:59 06:59 18:59 Intake Total 4122 / 4122 1730 / 1730 Output Total 700 / 700 600 / 600 Balance 3422 / 3422 1130 / 1130 Weight 79.9 kg Intake: IV 3500 / 3500 1100 / 1100 NS Inj 1,000 ML @ 80 mls/hr IV. 3000 / 3000 1000 / 1000 CONT .[id number] MEGHAN Rx#:[id number] Ofirmev Inj 1,000 mg In 100 ml 100 / 100 @ 400 mls/hr IV.SIG Q6H PRN Rx# :[id number] NS Inj 500 ML @ As Directed IV. 500 / 500 SIG BOLUS MEGHAN Rx#:[id number] Tube Feeding 622 / 622 510 / 510 Tube Irrigant 120 / 120 Output: Stool 50 / 50 Urine Amount (Catheter) 700 / 700 550 / 550 Indwelling Urethral Catheter 700 / 700 550 / 550 Other: Date of Last Bowel Movement 03/20/18 03/20/18 03/20/18 # Bowel Movements 3 Narrative: GENERAL: Elderly male. Intubated. No sedative drips. SKIN: Warm and dry. HEAD: Normocephalic. EYES: No scleral icterus. No injection or drainage. NECK: Supple, trachea midline. No JVD or lymphadenopathy. CARDIOVASCULAR: Regular rate and rhythm, hypotensive currently with systolic in the 80's, bloody stools noted in rectal tubing. RESPIRATORY: mechanically ventilated. GASTROINTESTINAL: Abdomen soft, MUSCULOSKELETAL: No cyanosis, or edema. Neuro: No eye opening to verbal or pain stimuli. pupils 2 mm bilaterally. Conjugate gaze. Did not follow commands. minimal flexion response to LE's to noxious stimuli. No purposeful movements seen. - Urinary Catheter Management Indwelling Urethral Catheter Cath placed during this visit: yes Reason for continuing: Terminally ill/Comfort care Insertion date: 03/13/18 Insertion time: 03:00 Assessment and Plan - Plan Assessment Elderly male TBI Cervical Spine CT 03/12/18 18:24 CONCLUSION: 1. No acute bony injury in the cervical spine. 2. Significant disc disease and degenerative spondylosis with fairly significant suspected canal stenosis in the lower cervical spine as described. Head MRI 03/13/18 00:00 CONCLUSION: 1. Interventricular hemorrhage with dilatation of the ventricles. 2. Subarachnoid hemorrhage. 3. Focal hemorrhage in the posterior right lateral midbrain with surrounding edema. This could be from the presumed fall. An underlying vascular lesion in this region could also be suspected. 4. Mild focal edema in the posterior left cerebellar hemisphere. 5. Suspected subgaleal hemorrhage or edema in the parietal scalp region. Head CT 03/14/18 00:00 CONCLUSION: 1. Persistent intraventricular, subarachnoid and right midbrain hemorrhage. 2. Persistent ventricular dilatation especially of the lateral ventricles. 3. Low density seen throughout the cerebral white matter likely from underlying small vessel ischemic change. Head CTA 03/14/18 00:00 CONCLUSION: 1. No aneurysm. Neck CTA 03/14/18 00:00 CONCLUSION: 1. Patent carotid arteries and vertebral arteries bilaterally. No aneurysm. CT Brain 03/12 There is a small volume of blood in the posterior horns of the lateral ventricles. minimal subarachnoid blood present in the posterior sylvian fissures bilaterally. A small hemorrhage is present in the quadrigeminal plate region asymmetric to the right. No evidence of significant brain shift. Plan: continues with poor neurological exam, no significant improvement cont neuro checks cont follow up neuro exam palliative care following
[2018-03-21 16:50] VITALS: RESP 23; O2SAT 93
--- NOTE | 2018-03-22 13:05 | P.DS ---
<TimothyYaneli bragg F - Last Filed: 03/22/18 12:54> Date of admission: 03/12/18 18:43 Primary care physician: UNKNOWN Attending physician on discharge: Ted Wilson Anticipated date of discharge: 03/21/18 Brief History from admission: Fall from a ladder. DS: Diagnosis - Discharge Diagnosis (1) SAH (subarachnoid hemorrhage) Status: Acute (2) Major neurocognitive disorder as late effect of traumatic brain injury without behavioral disturbance Status: Acute (3) Encephalopathy acute Status: Acute (4) Pain Status: Acute (5) Rectal bleeding Status: Acute DS: Summary Hospital Course: [place]: This is an 82 year old Elderly gentleman found under a ladder and presumably fell off the ladder sometimes with the last 24 hours. Patient was transferred to our institution as priority 1 trauma alert and on arrival patient is Hugo coma scale of about 4-5 moving some. Patient was intubated ventilated The patient underwent laboratory and diagnostic workup. After resuscitation, was found to have intracranial hemorrhage with small area of contusion on the right and then a small area of concentrated bleeding in the quadrigeminal plate. No other injuries are noted. The patient has bilateral severe hydronephrosis and parapelvic renal cysts that can be evaluated at a different time. At this point, I am not sure if the patient fell off the ladder and sustained injuries or perhaps he had a stroke in the quadrigeminal area, which is hemorrhagic and then fell off the ladder. Either way, patient is taken care of in the ICU. Appropriate services are consulted. INJURIES: Scalp lac (?christ) SAH IVH ?Anoxia C6-7 severe canal stenosis Atelectasis Procedures: 03/12: Intubated Consults: Neurosurgery. GI. Rehab medicine. Palliative care. Neuropsych. Case management. Hospital Course: 03/13/2018 Sedated on small dose of Versed throughout the night which has been discontinued this morning. At this point awaiting to see patients reaction to discontinuation of sedation however he is opening his eyes and fluttering eyelids but otherwise no responding to any verbal or tactile stimuli. Withdraws to pain. Hugo Coma Scale about 5E. Hemodynamically patient stable. Bilateral good breath sounds good PO2 FiO2 gradient on 35% FiO2 assist control mode ventilation. Renal function preserved. Discuss further with Dr. Marrero and will go ahead with MRI of the brain and based on the findings decide which way to go. 03/14/2018 off sedation today-patient's eyes are open, he is not following commands however withdrawing to pain. Neuro status clearly improved. He remains hemodynamically normal with adequate urine output. He is slightly hypertensive, will start him on oral propranolol. CT of the neck vessels have been negative-however he may have had bleeding secondary existing aneurysm-we will proceed with a CTA of the head. 03/15/2018 On today's exam patient's are not open according to RN he follows commands at times very sluggishly. He CTA shows no aneurysm the CT of the head is essentially stable. His urine output is marginal is mildly dehydrated so he will receive 1 L of normal saline bolus. Patient is on propranolol and clonidine so that will DC clonidine but keep propranolol in case hypertensive will managed with Norvasc, clonidine may potentially contribute to suppress mental status. palliative care has been consulted for the goals of care as 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. 03/16/2018 Neurologically patient is unchanged. Patient is occasionally withdrawing to pain and according to the nurse he followed some commands with upper extremities but I have not seen this Does not open eyes does not track. On my exam patient is withdrawing to pain and that is about it Hugo Coma Scale therefore is 5. Hemodynamically remained stable. Hypertension managed successfully. Bilateral breath sounds on AC control ventilation with good PO2 FiO2 gradient. Abdomen soft enteral feeds tolerated. This patient is 82-year-old and has a very poor prognosis in the face of his injuries and his best case scenario will end up in a care home bedridden and unable to take care of himself. There is no chance of functional recovery at this time. This is apparently been discussed by case management with his son and he is contemplating withdrawal of care. 03/17/2018 No change in neurologic status. Patient withdraws to pain a little bit but that is about it does not open eyes does not track or follow commands. He is off all the sedation for the last 3 days. No chance of functional neurological recovery at this time based on the injury and age. Hemodynamically stable although patient had a period of bradycardia. Propranolol removed. Blood pressure remained stable if not somewhat hypertensive but will manage without beta-blockers. Remains on assist control ventilation bilateral good breath sounds good PO2 FiO2 gradient. Clearly in face of neurologic status patient cannot be extubated where he could not protect upper airway. Abdomen soft. Decision on further care made by the son and he wishes to withdraw care but nothing concrete determined. 03/18/2018 Patient is neurologically unchanged does not follow any commands withdraws to pain only. Severe brain injury with no chance of meaningful recovery. Hemodynamically stable. Bilateral breath sounds remains on assist control ventilation with good PO2 FiO2 gradient. Abdomen is soft hypoactive bowel sounds. Yesterday afternoon patient had some clots and bright red blood per rectum and feedings have been stopped. His most likely diverticular bleed yet patient may have unrecognized other pathology in the known to us. Gastroenterology consulted to evaluate the patient. Hemoglobin and coagulation studies remain stable. 03/19/2018 Neurologically patient is unchanged he is off all the sedation for now for many days however the only activity patient displaces withdrawal to pain. Does not open eyes does not follow commands track or in any other way improve neurologically. Hugo Coma Scale 4-5. Hemodynamically stable. Hemoglobin remains stable despite one episode of maroon colored stool and clots. GI consult greatly appreciated. Bilateral breath sounds remains on assist control relation with good PO2 FiO2 gradient. Patient truly should have a tracheostomy at this point if family pursues further care. Apparently son is coming to town in the next few days to make the decision whether to pursue further care or allow withdrawal of care. As noted previously this patient has no chance of meaningful recovery and in best case scenario will remain with tracheostomy and feeding tube in a care home setting. 03/20/2018 Patient's clinical exam remains unchanged. He is withdrawing left lower extremity only with no spontaneous movement. Patient is a modified code because he is intubated. Awaiting arrival of family to decide further course of action. His hemoglobin is stable at 8.8 following 2 units of packed cells. 03/21/2018 No change in patient's clinical picture. Son is to arrive today and we will discuss further course of action. The plan will be to either withdraw care or initiate long-term placement following tracheostomy and feeding tube placement. Patient family has decided to withdraw care and allow the patient to naturally and with dignity in the presence of his family. Patient was drawn from the ventilator. Pt was provided comfort care at the direction of the palliative care team. Patient was pronounced 03/21/2018 at 1717 No spontaneous movements noted. Patient does not respond to voice or tactile stimuli. Pupils are fixed and dilated. No spontaneous respirations. No palpable pulses. No audible heart tones compliance monitor shows asystole in 2 separate leads. May [place] rest in peace. - Time Spent with Patient Total time spent providing and/or coordinating discharge services: Greater than 30 minutes - Quality: VTE Deep Vein Thrombosis/Pulmonary Embolism Present on Admission: No Exam Vital signs: Vital Signs 03/21/18 13:26 03/21/18 14:00 03/21/18 16:00 Pulse Rate 130 H 120 H Respiratory Rate 26 H Pulse Oximetry 100 03/21/18 16:45 Pulse Rate Respiratory Rate 23 Pulse Oximetry 93 L Intake & Output 03/21/18 03/22/18 03/22/18 18:59 06:59 18:59 Other: Date of Last Bowel Movement 03/20/18 Results Procedures completed during hospitalization: . - Impressions ITS Impressions Pelvis X-Ray 03/12/18 18:18 CONCLUSION: Satisfactory trauma pelvis appearance Abdomen/Pelvis CT 03/12/18 18:23 CONCLUSION: 1. No acute injury in the abdomen or pelvis. 2. Mildly dilated urinary bladder with mild bilateral hydronephrosis and/or parapelvic renal cysts. This could be more definitively evaluated with delayed scanning following placement of a Junior catheter 3. Moderate gaseous distention of the stomach and small bowel. Chest CT 03/12/18 18:23 CONCLUSION: 1. Posterior bibasilar atelectasis. 2. Coronary artery calcium patient. 3. No acute intrathoracic trauma. Cervical Spine CT 03/12/18 18:24 CONCLUSION: 1. No acute bony injury in the cervical spine. 2. Significant disc disease and degenerative spondylosis with fairly significant suspected canal stenosis in the lower cervical spine as described. Head MRI 03/13/18 00:00 CONCLUSION: 1. Interventricular hemorrhage with dilatation of the ventricles. 2. Subarachnoid hemorrhage. 3. Focal hemorrhage in the posterior right lateral midbrain with surrounding edema. This could be from the presumed fall. An underlying vascular lesion in this region could also be suspected. 4. Mild focal edema in the posterior left cerebellar hemisphere. 5. Suspected subgaleal hemorrhage or edema in the parietal scalp region. Head CT 03/14/18 00:00 CONCLUSION: 1. Persistent intraventricular, subarachnoid and right midbrain hemorrhage. 2. Persistent ventricular dilatation especially of the lateral ventricles. 3. Low density seen throughout the cerebral white matter likely from underlying small vessel ischemic change. . Head CTA 03/14/18 00:00 CONCLUSION: 1. No aneurysm. Neck CTA 03/14/18 00:00 CONCLUSION: 1. Patent carotid arteries and vertebral arteries bilaterally. No aneurysm. Abdomen X-Ray 03/16/18 00:00 CONCLUSION: Tip of the NG tube inside the antrum. Chest X-Ray 03/21/18 06:00 CONCLUSION: Increased airspace consolidation at the left lung base and stable right basilar opacity. <Ted Wilson - Last Filed: 03/22/18 15:06> Date of admission: 03/12/18 18:43 Primary care physician: UNKNOWN DS: Summary - Time Spent with Patient Total time spent providing and/or coordinating discharge services: Exam Vital signs: Vital Signs 03/21/18 16:00 03/21/18 16:45 Pulse Rate 120 H Respiratory Rate 23 Pulse Oximetry 93 L Intake & Output 03/21/18 03/22/18 03/22/18 18:59 06:59 18:59 Other: Date of Last Bowel Movement 03/20/18 Results - Impressions ITS Impressions Pelvis X-Ray 03/12/18 18:18 CONCLUSION: Satisfactory trauma pelvis appearance Abdomen/Pelvis CT 03/12/18 18:23 CONCLUSION: 1. No acute injury in the abdomen or pelvis. 2. Mildly dilated urinary bladder with mild bilateral hydronephrosis and/or parapelvic renal cysts. This could be more definitively evaluated with delayed scanning following placement of a Junior catheter 3. Moderate gaseous distention of the stomach and small bowel. Chest CT 03/12/18 18:23 CONCLUSION: 1. Posterior bibasilar atelectasis. 2. Coronary artery calcium patient. 3. No acute intrathoracic trauma. Cervical Spine CT 03/12/18 18:24 CONCLUSION: 1. No acute bony injury in the cervical spine. 2. Significant disc disease and degenerative spondylosis with fairly significant suspected canal stenosis in the lower cervical spine as described. Head MRI 03/13/18 00:00 CONCLUSION: 1. Interventricular hemorrhage with dilatation of the ventricles. 2. Subarachnoid hemorrhage. 3. Focal hemorrhage in the posterior right lateral midbrain with surrounding edema. This could be from the presumed fall. An underlying vascular lesion in this region could also be suspected. 4. Mild focal edema in the posterior left cerebellar hemisphere. 5. Suspected subgaleal hemorrhage or edema in the parietal scalp region. Head CT 03/14/18 00:00 CONCLUSION: 1. Persistent intraventricular, subarachnoid and right midbrain hemorrhage. 2. Persistent ventricular dilatation especially of the lateral ventricles. 3. Low density seen throughout the cerebral white matter likely from underlying small vessel ischemic change. . Head CTA 03/14/18 00:00 CONCLUSION: 1. No aneurysm. Neck CTA 03/14/18 00:00 CONCLUSION: 1. Patent carotid arteries and vertebral arteries bilaterally. No aneurysm. Abdomen X-Ray 03/16/18 00:00 CONCLUSION: Tip of the NG tube inside the antrum. Chest X-Ray 03/21/18 06:00 CONCLUSION: Increased airspace consolidation at the left lung base and stable right basilar opacity. - Additional Comments The exam, history, and the medical decision-making described in the above note were completed with the assistance of the mid-level provider. I reviewed and agree with the findings presented. I attest that I had a [id number] encounter with the patient on the same day, and personally performed and documented my assessment and findings in the medical record. Discharge Plan - Discharge Details Date/Time: 03/21/18 21:46 - Physicians Team Primary Care Provider: UNKNOWN, Attending Provider: Vaibhav Tenorio Other Providers: Ry Marrero MD ; Gerson Apodaca MD ; Ted Wilson MD ; [employer] ; Timothy Mckeon MD ; Yaneli Roach ARNP ; Jose Lopez MD ; Yarely Waldron MD ; Arvind Sotelo ARNP ; Vaibhav Tenorio MD ; Kennedy Cotto, PhD ; Maria R Mancilla MD ; Marla Martinez MD ; Raf Tapia MD
== END 2018-03-21 21:46 | disposition expired ==
LOC: NEPI 18:14 → NEDA 18:43 → EDBD 18:43 → N03 19:01
PROVIDERS: ADMIT Surgery; ATTEND Surgery